=== PATIENT | female | born 1945 | race Caucasian/White ===

== ENCOUNTER 2018-03-14 00:30 | Inpatient (IN) ==
[2018-03-14 00:53] LABS: Basophils # 0.1 K/mm3 (0-0.2); Basophils % 0.9 % (0.1-2.0); Eosinophils # 0.4 K/mm3 (0.0-0.4); Eosinophils % 2.5 % (0.1-12.0); Hematocrit 53.8 % (37.0-47.0); Hemoglobin 16.4 g/dL (12.2-16.2); Lymphocytes % 40.3 % (10-50); Mean Corpuscular HGB Conc 30.4 g/dL (31.8-35.4); Mean Corpuscular Hemoglobin 28.7 pg (27.0-31.2); Mean Corpuscular Volume 94.3 fl (81-99); Mean Platelet Volume 9.2 fl (7.4-10.4); Monocytes # 0.9 K/mm3 (0.1-1.0); Neutrophils # 7.5 K/mm3 (1.8-7.8); Neutrophils % 50.4 % (37.0-80.0); Platelet Count 278 K/mm3 (142-424); Red Blood Count 5.71 M/mm3 (4.20-5.40); Red Cell Distribution Width 13.6 % (11.5-17.5)
[2018-03-14 01:16] LABS: Anion Gap 25.4 mEq/L (5-15); Blood Urea Nitrogen 23 mg/dL (7-18); Calcium 9.4 mg/dL (8.5-10.1); Carbon Dioxide 18 mmol/L (21.0-32.0); Chloride 98 mmol/L (98-107); Glucose 350 mg/dL (74-106); Potassium 4.4 mmoL/L (3.5-5.1); Sodium 137 mmol/L (136-145)
[2018-03-14 01:20] LABS: Albumin Level 3.9 gm/dL (3.4-5.0); Bilirubin,Direct 0.1 mg/dL (0.0-0.2); Bilirubin,Indirect 0.2 mg/dL (0.0-0.9); Bilirubin,Total 0.3 mg/dL (0.2-1.0); Total Protein,Serum 7.9 gm/dL (6.4-8.2)
[2018-03-14 01:42] LABS: Anisocytosis 1+; Eosinophils % 6 % (0-3); Lymphocytes % 40 % (10-50); Monocytes % 2 % (2-9); Neutrophils % 52 % (42-76); Total Cells Counted 100
--- NOTE | 2018-03-14 01:56 | Emergency Department Note ---
ED Disposition Clinical Impression: Acute dyspnea, Acute exacerbation of chronic obstructive airways disease, Renal insufficiency, Left bundle branch block (LBBB), Overweight (BMI 25.0-29.9), Elevated TSH Disposition: Admitted As Inpatient Condition on Discharge: Fair Referrals: Natalia Freeman [Primary Care Provider] - - Critical Care Critical Care Time: No Attestation: On 03/14/18, the high probability of a clinically significant, sudden or life threatening deterioration of the following system(s) required my full and direct attention, intervention and personal management. The time I documented below is in addition to time spent performing reported procedures but includes the following listed in this critical care notation. Medical Decision Making - Medical Records Medical records reviewed: Yes: I reviewed the patient's medical records. - Alfa Inquiry Pt receiving controlled substance: No Vital Signs: 03/14/18 00:34 03/14/18 00:55 03/14/18 01:18 Temperature 97.9 F Temperature Source Oral Pulse Rate 103 H Pulse Rate [Right Brachial] 112 H 94 H Respiratory Rate 21 22 Blood Pressure [Right Arm] 171/100 H 127/68 Blood Pressure Mean [Right Arm] 123 87 02 Sat by Pulse Oximetry 95 84 L Oxygen Delivery Method Room Air Room Air Oxygen Flow Rate (LPM) 03/14/18 01:30 03/14/18 02:25 Temperature 98.5 F Temperature Source Oral Pulse Rate Pulse Rate [Right Brachial] 86 98 H Respiratory Rate 19 19 Blood Pressure [Right Arm] 132/74 145/81 H Blood Pressure Mean [Right Arm] 93 102 02 Sat by Pulse Oximetry 91 L 92 L Oxygen Delivery Method Nasal Cannula Nasal Cannula Oxygen Flow Rate (LPM) 3 3 - Lab Data Lab results reviewed: Yes: I reviewed the patient's lab results. Lab Results 03/14/18 00:30: WBC 15.0 H, RBC 5.71 H, Hgb 16.4 H, Hct 53.8 H, MCV 94.3, MCH 28.7, MCHC 30.4 L, RDW 13.6, Plt Count 278, MPV 9.2, Neut % (Auto) 50.4, Lymph % (Auto) 40.3, [place] % (Auto) 6.0, Eos % (Auto) 2.5, Baso % (Auto) 0.9, Neut # (Au to) 7.5, Lymph # (Auto) 6.0 H, [place] # (Auto) 0.9, Eos # (Auto) 0.4, Baso # (Auto) 0.1, Total Counted 100, Neutrophils % (Manual) 52, Lymphocytes % (Manual) 40, Monocytes % (Manual) 2, Eosinophils % (Manual) 6 H, Platelet Estimate Normal, RBC Morphology Not Reportable, Anisocytosis 1+ 03/14/18 00:30: Sodium 137, Potassium 4.4, Chloride 98, Carbon Dioxide 18 L, Anion Gap 25.4 H, BUN 23 H, Creatinine 1.45 H, Estimated Creat Clear 47, Estimated GFR 36 L, Est GFR ( Amer) 43 L, Glucose 350 H, Calcium 9.4, Troponin I < 0.02 03/14/18 00:30: Total Bilirubin 0.3, Direct Bilirubin 0.1, Indirect Bilirubin 0.2, AST 18, ALT 29, Alkaline Phosphatase 88, Total Protein 7.9, Albumin 3.9 03/14/18 00:30: B-Natriuretic Peptide 148 H 03/14/18 00:45: Lactate 6.5 H 03/14/18 02:14: Specimen Source Left radial, O2 % 32% nc, ABG pH 7.34 L, ABG pCO2 43.6, ABG pO2 64.1 L, ABG HCO3 23.1, ABG Total CO2 24.4, ABG O2 Saturation 92, ABG Base Excess -2.6 L, Radames Test Acceptable Result diagrams: 03/14/18 00:30 03/14/18 00:30 Orders (Tests/Meds): ED MEDICATIONS Generic Name Dose Route Start Last Admin Trade Name Freq PRN Reason Stop Dose Admin Sodium Chloride 1,000 mls @ 999 mls/hr 03/14/18 00:45 03/14/18 00:57 Sod Chlor 0.9% 1000ml Bag IV 03/14/18 01:45 999 mls/hr .Q1H1M GENA Administration Sodium Chloride 10 ml 03/14/18 00:38 Saline Flush 10ml Syringe IV 04/13/18 00:37 NEEDED PRN Maintain IV Site Sodium Chloride 3 ml 03/14/18 00:39 Sodium Chloride 3% 15ml Neb IH 04/13/18 00:38 ONCE PRN INDUCE SPUTUM COLLECTION Discontinued Medications Generic Name Dose Route Start Last Admin Trade Name Freq PRN Reason Stop Dose Admin Albuterol/Ipratropium 3 ml 03/14/18 00:39 03/14/18 00:54 Duoneb 3ml Neb IH 03/14/18 00:40 3 ml ONCE ONE Administration Furosemide 40 mg 03/14/18 02:30 03/14/18 02:36 Lasix 40mg/4ml Vial IV 03/14/18 02:31 40 mg ONCE ONE Administration Methylprednisolone Sodium Succinate 125 mg 03/14/18 00:39 03/14/18 00:57 Solu-Medrol 125mg/2ml Vial IV 03/14/18 00:40 125 mg ONCE ONE Administration ORDERS Category Date Time Status XR chest portable Stat Exams 03/14/18 00:38 Taken T4 (Thyroxine) Stat Lab 03/14/18 00:30 Received TSH [Thyroid Stimulating Hormone] Stat Lab 03/14/18 00:30 Received Blood Culture Stat Micro 03/14/18 00:45 Received Sputum Culture & Gram Stain Stat Micro 03/14/18 00:39 Ordered ABG [Arterial Blood Gas] Stat RT 03/14/18 02:14 Ordered ECG Request by /Antonio Stat Y 03/14/18 00:38 Ordered - Radiology Data #1 Image(s): Chest Image Reviewed: Yes I reviewed the patient's radiology image Preliminary Findings: Abnormal (cm-congestion) - ECG Data Tracing #1 Arrhythmias present: sinus tach Ischemic changes: non-specific ST-T wave changes Conduction abnormalities present: LBBB ECG compared to prior tracings: there are no significant changes - Physician Consults Physician Consulted: padmini Reason -: Admission Resp/SOB HPI - General Chief Complaint: Shortness of Breath/Dyspnea Stated Complaint: shortness of breath Time Seen by Provider: 03/14/18 00:45 Mode of Arrival: EMS Source of Information: Patient, Medical Record Limitations: No Limitations Description of Symptoms (Recalled from ER Triage Doc. by RN): Brought in by EMS for shortness of breath after patient reportedly was outside walking and attempted to walk up a hill side. Pt reports that she got extremely short of breath and couldn't walk. - History of Present Illness pt with hx of copd with progressive sob with any excertion - no fever and no prod cough MD Complaint: shortness of breath, cough Onset (ago): hour(s) Context: occurred during exertion Severity: severe Known history of: COPD, diabetes Associated symptoms: denies other symptoms Treatment prior to arrival: none - Related Data Home oxygen amount: none Home Medications Medication Instructions Recorded Confirmed Atenolol [Atenolol 50mg Tab] 50 mg PO DAILY 09/09/17 03/14/18 Fenofibrate,Micronized [Tricor 134 mg PO DAILY 09/09/17 03/14/18 134mg] Insulin NPH Hum/Reg Insulin Hm 1 unit SQ DAILY 09/09/17 03/14/18 [Novolin 70-30 100 Unit/ml Vial] Lisinopril [Lisinopril 20mg Tab] 20 mg PO DAILY 09/09/17 03/14/18 Pantoprazole Sodium [Protonix 40mg 40 mg PO DAILY 09/09/17 03/14/18 tablet] Saxagliptin HCl [Onglyza] 5 mg PO DAILY 09/09/17 03/14/18 buPROPion HCl [Wellbutrin Xl] 300 mg PO DAILY 09/09/17 03/14/18 Allergies Allergy/AdvReac Type Severity Reaction Status Date / Time ibuprofen Allergy Unknown Verified 09/09/17 15:08 [facility] History - Hepatitis A Screen Drug use history?: No High risk sexual behaviors?: No History of sexually transmitted infection?: No Currently employed?: No Childcare worker?: No Do you have indoor plumbing?: Yes Do you have electricity?: Yes Attestation statement:: This patient has been screened for Hepatitis A risk factors. I have reviewed the patient's past medical history: Yes Medical History: Reports:: Diabetes Mellitus Type 2 Denies:: Cancer, Diabetes Mellitus Type 1, MRSA Amputation: No - Social History Smoking Status: Current every day smoker Alcohol Intake: never - Psychiatric History Expresses thoughts of harming self/others: None Suicide Plan Description: No Plan ROS Obtained: Yes All systems reviewed & no additional complaints - Constitutional Constitutional: Denies fever(s) - Eyes Eyes: Denies change in vision - ENT Ears, Nose, Mouth, and Throat: Denies sore throat - Cardiovascular Cardiovascular: Denies chest pain, Reports dyspnea, Denies radiating jaw, neck or arm pain - Respiratory Respiratory: Yes cough, Yes dyspnea, No coughing up blood - Gastrointestinal Gastrointestingal: Denies: abdominal pain - Genitourinary Female Genitourinary: Denies hematuria - Musculoskeletal Musculoskeletal: Denies joint pain, Denies neck pain - Integumentary/Breasts Skin/Breast: Denies rash - Neurologic Neurologic: Denies headache(s) Physical Exam - General General appearance: alert - Head Head exam: normocephalic - Eye Eye exam: Present: PERRL, EOMI - ENT ENT exam: Present: mucous membranes dry - Neck Neck exam: Present: trachea midline - Respiratory Respiratory exam: Present: wheezes, other (bilat rhonchi ). Absent: respiratory distress - Cardiovascular Cardiovascular exam: Present: regular rate, systolic murmur, +S4 - Abdominal Exam Abdominal exam: Present: soft - Extremities Exam Extremities exam: Present: pedal edema - Neurological Exam Neurological exam: Present: alert, oriented X3, CN II-XII intact - Psychiatric Psychiatric exam: Present: normal affect - Skin Skin exam: Absent: rash
[2018-03-14 02:26] LABS: ABG Base Excess -2.6 mmol/L (-2.4-2.3); ABG HCO3 23.1 mmhg (22.0-26.0); ABG Oxygen Saturation 92 % (90-100); ABG PCO2 43.6 mmhg (35.0-45.0); ABG PH 7.34 mmol/L (7.35-7.45); ABG PO2 64.1 mmhg (80-100); ABG TCO2 24.4 mmhg (23-27)
[2018-03-14 02:28] LABS: Allen's Test Acceptable; Oxygen 32% NC %
[2018-03-14 03:00] LABS: Thyroid Stimulating Hormone 13.69 uIU/ml (0.358-3.740)
[2018-03-14 05:24] LABS: Basophils % 0.2 % (0.1-2.0); Eosinophils % 0.4 % (0.1-12.0); Hematocrit 46.4 % (37.0-47.0); Hemoglobin 15.1 g/dL (12.2-16.2); Lymphocytes # 0.7 K/mm3 (0.7-4.5); Lymphocytes % 7.4 % (10-50); Mean Corpuscular HGB Conc 32.5 g/dL (31.8-35.4); Mean Corpuscular Hemoglobin 28.7 pg (27.0-31.2); Mean Corpuscular Volume 88.3 fl (81-99); Mean Platelet Volume 9.1 fl (7.4-10.4); Monocytes # 0.2 K/mm3 (0.1-1.0); Monocytes % 2.1 % (1.7-9.3); Neutrophils # 8.3 K/mm3 (1.8-7.8); Neutrophils % 89.8 % (37.0-80.0); Platelet Count 180 K/mm3 (142-424); Red Blood Count 5.26 M/mm3 (4.20-5.40); Red Cell Distribution Width 13.7 % (11.5-17.5); White Blood Count 9.2 K/mm3 (4.8-10.8)
[2018-03-14 05:36] LABS: Anion Gap 15.1 mEq/L (5-15); Calcium 8.9 mg/dL (8.5-10.1); Chol/HDL Ratio 4.7 (1-3.5); Potassium 4.1 mmoL/L (3.5-5.1)
--- NOTE | 2018-03-14 07:48 | Consult Report ---
Addendum entered and electronically signed by PRIYANK Harrison 03/14/18 14:30: Cardiac cath shows non-flow limiting CAD. Medical therapy recommended. Official echo report has LVEF at 55% with abnormal septal motion. SOA is likely just related to COPD and deconditioning. Continue atenolol and lisinopril. Would add low dose HCTZ 12.5 mg daily with BMP in one week. Original Note: History of Present Illness Consult date: 03/14/18 Requesting physician: Wiliam Nolen Consult reason: shortness of breath Chief complaint: SOA Additional Medical History:: 1. Ongoing tobacco use A. COPD 2. History of ischemic heart disease A. Cardiac catheterization 05/27/1997, [facility] showing normal LV function with 40% mid LAD and 70% ostial second diagonal disease 3. Diabetes mellitus, treated for approximately 15 years 4. Hypertension 5. Hyperlipidemia 6. History of CVA with left-sided facial droop and left upper extremity weakness approximately 2010, resolved with therapy and time History of present illness: 72-year-old white female with known coronary artery disease, hypertension, ongoing tobacco use and diabetes mellitus presented for complaint of exertional shortness of breath. Patient was apparently walking here in town up a slight hill when she became progressively short of breath to the point of needing to stop every 2 minutes to catch her breath. Patient denies chest pain but does note some nausea and profuse sweating. She states she needed to hold onto a pole so she would not fall. Patient has a chronic left bundle branch block precluding diagnostic interpretation. She was admitted overnight with troponins returning normal. Cardiology consulted for evaluation and recommendations. Patient is somewhat of a difficult historian regarding recent activity tolerance. Preliminary echocardiogram this a.m. shows reduced left ventricular ejection fraction in the 40-45% range with evidence of septal hypertrophy. [facility] History Medical History: Reports:: Coronary Artery Disease, Diabetes Mellitus Type 2, Hyperlipidemia, Hypertension Denies:: Cancer, Diabetes Mellitus Type 1, MRSA Have you ever received a pneumonia vaccine?: No Have you received a flu vaccine this season?: No Laterality Cases: Left: Total Knee Replacement Other Surgeries: Yes: Cardiac Catheterization Amputation: No - *Social History Educational Level: Attended High School Smoking Status: Current every day smoker Tobacco Type: cigarettes # Packs/Day (cigarettes): 1 #Yrs smoked (if former smoker): 58 Alcohol Intake: never Occupational Status: disabled Household Members: children Travel in the last 8 weeks: None - Psychiatric History Expresses thoughts of harming self/others: None Suicide Plan Description: No Plan *Family Hx:: Unable to obtain Meds Home Medications Medication Instructions Recorded Confirmed Type Atenolol [Atenolol 50mg Tab] 50 mg PO DAILY 09/09/17 03/14/18 History Fenofibrate,Micronized [Tricor 134 mg PO DAILY 09/09/17 03/14/18 History 134mg] Insulin NPH Hum/Reg Insulin Hm 1 unit SQ DAILY 09/09/17 03/14/18 History [Novolin 70-30 100 Unit/ml Vial] Lisinopril [Lisinopril 20mg Tab] 20 mg PO DAILY 09/09/17 03/14/18 History Pantoprazole Sodium [Protonix 40mg 40 mg PO DAILY 09/09/17 03/14/18 History tablet] Saxagliptin HCl [Onglyza] 5 mg PO DAILY 09/09/17 03/14/18 History buPROPion HCl [Wellbutrin Xl] 300 mg PO DAILY 09/09/17 03/14/18 History Allergies Allergy/AdvReac Type Severity Reaction Status Date / Time ibuprofen Allergy Unknown Verified 09/09/17 15:08 Review of Systems - *Cardiovascular Reports shortness of breath with activity, Denies chest pain - *Respiratory Reports shortness of breath with activity - *Gastrointestinal Denies abdominal pain, Denies loose stools - *Genitourinary Denies difficulty urinating - *Musculoskeletal Denies joint pain - *Neurologic Denies headache(s) Exam Vital signs and Labs for Last 24 Hours: Temp Pulse Resp BP Pulse Ox 98.5 F 97 H 18 174/91 H 92 L 03/14/18 03:24 03/14/18 06:33 03/14/18 03:24 03/14/18 03:24 03/14/18 06:33 Laboratory Results - last 24 hr 03/14/18 00:30: WBC 15.0 H, RBC 5.71 H, Hgb 16.4 H, Hct 53.8 H, MCV 94.3, MCH 28.7, MCHC 30.4 L, RDW 13.6, Plt Count 278, MPV 9.2, Neut % (Auto) 50.4, Lymph % (Auto) 40.3, [place] % (Auto) 6.0, Eos % (Auto) 2.5, Baso % (Auto) 0.9, Neut # (Auto) 7.5, Lymph # (Auto) 6.0 H, [place] # (Auto) 0.9, Eos # (Auto) 0.4, Baso # (Auto) 0.1, Total Counted 100, Neutrophils % (Manual) 52, Lymphocytes % (Manual) 40, Monocytes % (Manual) 2, Eosinophils % (Manual) 6 H, Platelet Estimate Normal, RBC Morphology Not Reportable, Anisocytosis 1+ 03/14/18 00:30: Sodium 137, Potassium 4.4, Chloride 98, Carbon Dioxide 18 L, Anion Gap 25.4 H, BUN 23 H, Creatinine 1.45 H, Estimated Creat Clear 47, Estimated GFR 36 L, Est GFR ( Amer) 43 L, Glucose 350 H, Calcium 9.4, Troponin I < 0.02 03/14/18 00:30: Total Bilirubin 0.3, Direct Bilirubin 0.1, Indirect Bilirubin 0.2, AST 18, ALT 29, Alkaline Phosphatase 88, Total Protein 7.9, Albumin 3.9 03/14/18 00:30: B-Natriuretic Peptide 148 H 03/14/18 00:30: TSH 13.69 H, Thyroxine (T4) 9.3 03/14/18 00:45: Lactate 6.5 H 03/14/18 02:14: Specimen Source Left radial, O2 % 32% nc, ABG pH 7.34 L, ABG pCO2 43.6, ABG pO2 64.1 L, ABG HCO3 23.1, ABG Total CO2 24.4, ABG O2 Saturation 92, ABG Base Excess -2.6 L, Radames Test Acceptable 03/14/18 05:05: WBC 9.2 D, RBC 5.26, Hgb 15.1, Hct 46.4, MCV 88.3, MCH 28.7, MCHC 32.5, RDW 13.7, Plt Count 180 D, MPV 9.1, Neut % (Auto) 89.8 H, Lymph % (Auto) 7.4 L, [place] % (Auto) 2.1, Eos % (Auto) 0.4, Baso % (Auto) 0.2, Neut # (Auto) 8.3 H, Lymph # (Auto) 0.7, [place] # (Auto) 0.2, Eos # (Auto) 0.0, Baso # (Auto) 0.0 03/14/18 05:05: Sodium 135 L, Potassium 4.1, Chloride 99, Carbon Dioxide 25 D, Anion Gap 15.1 H, BUN 24 H, Creatinine 1.33 H, Estimated Creat Clear 58, Estimated GFR 39 L, Est GFR ( Amer) 48 L, Glucose 374 H, Calcium 8.9, Magnesium 1.9, Troponin I 0.04, Triglycerides 212 H, Cholesterol 179, LDL Cholesterol 99, VLDL Cholesterol 42 H, HDL Cholesterol 38, Cholesterol/HDL Ratio 4.7 H 03/14/18 05:05: Lactate 1.4 03/14/18 06:15: POC Glucose 351 H* I & O for Last 24 hours: Intake & Output 03/11/18 03/12/18 03/13/18 03/14/18 11:59 11:59 11:59 11:59 Intake Total 1000 / 1000 Output Total 300 / 300 Balance 700 / 700 Weight 205 lb 9 oz - *Routine Neck Exam Present: supple. Absent: JVD, carotid bruit - *Routine Respiratory Exam Present: decreased breath sounds, wheezes, crackles, diminished air movement. Absent: accessory muscle use, rales, rhonchi - *Routine Cardiovascular Exam Present: RRR. Absent: murmur, gallop, rubs - *Routine Abdominal Exam Present: soft. Absent: tenderness, distended, guarding - *Routine Extremities Exam Absent: edema, calf tenderness - *Routine Neurological Exam Present: alert, oriented X3, moving all extremities Assessment and Plan (1) Acute dyspnea Current visit: Yes Status: Acute Category: Medical Code(s): R06.00 - Dyspnea, unspecified (2) CAD (coronary artery disease) Current visit: Yes Status: Acute Category: Medical Code(s): I25.10 - Atherosclerotic heart disease of [place] coronary artery without angina pectoris (3) Diabetes Current visit: Yes Status: Acute Category: Medical Code(s): E11.9 - Type 2 diabetes mellitus without complications (4) Hyperlipidemia associated with type 2 diabetes mellitus Current visit: Yes Status: Acute Category: Medical Code(s): E11.69 - Type 2 diabetes mellitus with other specified complication; E78.5 - Hyperlipidemia, unspecified (5) COPD (chronic obstructive pulmonary disease) Current visit: Yes Status: Acute Category: Medical Code(s): J44.9 - Chronic obstructive pulmonary disease, unspecified (6) Obesity (BMI 30.0-34.9) Current visit: Yes Status: Acute Category: Medical Code(s): E66.9 - Obesity, unspecified (7) History of CVA (cerebrovascular accident) Current visit: Yes Status: Acute Category: Medical Code(s): Z86.73 - Personal history of transient ischemic attack (TIA), and cerebral infarction without residual deficits (8) Left bundle branch block (LBBB) Current visit: Yes Status: Acute Category: Medical Code(s): I44.7 - Left bundle-branch block, unspecified (9) Hypertension Current visit: No Status: Acute Category: Medical Code(s): I10 - Essential (primary) hypertension (10) Elevated TSH Current visit: Yes Status: Acute Category: Medical Code(s): R79.89 - Other specified abnormal findings of blood chemistry (11) CKD (chronic kidney disease) stage 3, GFR 30-59 ml/min Current visit: Yes Status: Acute Category: Medical Code(s): N18.3 - Chronic kidney disease, stage 3 (moderate) - Assessment and plan all Dx Assessment and Plan for all problems:: 1. In light of the patient's exertional dyspnea with known coronary artery disease, chronic tobacco use, long standing diabetes and abnormal EKG with left bundle branch block would recommend proceeding with cardiac catheterization to evaluate for coronary artery disease. Patient would not be able to undergo stress testing due to poor exercise tolerance and wheezing on exam. In addition the patient's echocardiogram shows reduced ejection fraction. 2. Further recommendations to follow pending above results. 3. Monitor renal status closely after contrast
--- NOTE | 2018-03-14 08:40 | History & Physical Report ---
*Admission Date: 03/14/18 <Irene Hussein 03/14/18 08:46> *Chief complaint: Shortness of breath <Irene Hussein 03/14/18 08:46> *History of present illness: Ms. Ray is a 72-year-old white female with known coronary artery disease, hypertension, ongoing tobacco use and diabetes mellitus who presented to the ER with the complaint of exertional shortness of breath. Patient was apparently walking here in town up a slight hill when she became progressively short of breath to the point of needing to stop every 2 minutes to catch her breath. Patient denies chest pain but does note some nausea and profuse sweating. She states she needed to hold onto a pole so she would not fall. Her daughter then called 911. She was admitted overnight for cardiac monitoring with troponins returning normal. Cardiology was consulted for evaluation and recommendations. <Irene Hussein 03/14/18 08:46> [facility] History Medical History: Reports:: Chronic Obstructive Pulmonary Disease (COPD), Coronary Artery Disease, Cerebrovascular Accident, Diabetes Mellitus Type 2, Hyperlipidemia, Hypertension Denies:: Cancer, Diabetes Mellitus Type 1, MRSA <Irene Hussein 03/14/18 08:46> Have you ever received a pneumonia vaccine?: No <Irene Hussein 03/14/18 08:46> Have you received a flu vaccine this season?: No <Irene Hussein 03/14/18 08:46> Other Medical History: Reports: Arthritis <Irene Hussein 03/14/18 08:46> Laterality Cases: Left: Total Knee Replacement <Irene Hussein 03/14/18 08:46> Other Surgeries: Yes: Cardiac Catheterization, Cholecystectomy, Other (C- section, tumors removed from stomach) <Irene Hussein 03/14/18 08:46> Amputation: No <Irene Hussein 03/14/18 08:46> - *Social History Educational Level: Attended High School <Irene Hussein 03/14/18 08:46> Smoking Status: Current every day smoker <Irene Hussein 03/14/18 08:46> Tobacco Type: cigarettes <Irene Hussein 03/14/18 08:46> # Packs/Day (cigarettes): 1 <Irene Hussein 03/14/18 08:46> #Yrs smoked (if former smoker): 58 <JovitaIrene 03/14/18 08:46> Alcohol Intake: never <JovitaIrene 03/14/18 08:46> Occupational Status: disabled <Irene Hussein 03/14/18 08:46> Household Members: children <JovitaIrene 03/14/18 08:46> Travel in the last 8 weeks: None <Irene Hussein 03/14/18 08:46> - Psychiatric History Expresses thoughts of harming self/others: None <JovitaIrene 03/14/18 08:46> Suicide Plan Description: No Plan <Irene Hussein 03/14/18 08:46> *Family Hx:: Cancer, Hyperlipidemia, Hypertension <JovitaIrene 03/14/18 08:46> Review of Systems - Constitutional Reports chills, Reports weakness, Denies fever(s) <Irene Hussein 03/14/18 08:46> - Eyes Denies blurry vision, Denies double vision <JovitaIrene 03/14/18 08:46> - ENT Reports nasal congestion, Denies sore throat <JovitaIrene 03/14/18 08:46> - *Cardiovascular Reports excessive sweating, Reports shortness of breath with activity, Denies chest pain, Denies rapid, pounding, or irregular heartbeat <JovitaIrene 03/14/18 08:46> - *Respiratory Reports cough, Reports shortness of breath with activity <Juni Husseina 03/14/18 08:46> - *Gastrointestinal Reports loose stools, Reports nausea, Denies abdominal pain, Denies vomiting <JovitaIrene 03/14/18 08:46> - *Genitourinary Denies difficulty urinating, Denies painful urination <Irene Hussein 03/14/18 08:46> - *Musculoskeletal Reports back pain, Denies body aches <Irene Hussein 03/14/18 08:46> - *Neurologic Reports weakness, Denies headache(s), Denies dizziness <Irene Hussein 03/14/18 08:46> Meds Home Medications Medication Instructions Recorded Confirmed Type Atenolol [Atenolol 50mg Tab] 50 mg PO DAILY 09/09/17 03/14/18 History Fenofibrate,Micronized [Tricor 134 mg PO DAILY 09/09/17 03/14/18 History 134mg] Insulin NPH Hum/Reg Insulin Hm 1 unit SQ DAILY 09/09/17 03/14/18 History [Novolin 70-30 100 Unit/ml Vial] Lisinopril [Lisinopril 20mg Tab] 20 mg PO DAILY 09/09/17 03/14/18 History Pantoprazole Sodium [Protonix 40mg 40 mg PO DAILY 09/09/17 03/14/18 History tablet] Saxagliptin HCl [Onglyza] 5 mg PO DAILY 09/09/17 03/14/18 History buPROPion HCl [Wellbutrin Xl] 300 mg PO DAILY 09/09/17 03/14/18 History <Wiliam Nolen - 03/14/18 08:59> Allergies Allergy/AdvReac Type Severity Reaction Status Date / Time ibuprofen Allergy Unknown Verified 09/09/17 15:08 <Wiliam Nolen - 03/14/18 08:59> Exam Vital signs and Labs for Last 24 Hours: Temp Pulse Resp BP Pulse Ox 98.5 F 97 H 18 174/91 H 92 L 03/14/18 03:24 03/14/18 06:33 03/14/18 03:24 03/14/18 03:24 03/14/18 06:33 Laboratory Results - last 24 hr 03/14/18 00:30: WBC 15.0 H, RBC 5.71 H, Hgb 16.4 H, Hct 53.8 H, MCV 94.3, MCH 28.7, MCHC 30.4 L, RDW 13.6, Plt Count 278, MPV 9.2, Neut % (Auto) 50.4, Lymph % (Auto) 40.3, [place] % (Auto) 6.0, Eos % (Auto) 2.5, Baso % (Auto) 0.9, Neut # (Auto) 7.5, Lymph # (Auto) 6.0 H, [place] # (Auto) 0.9, Eos # (Auto) 0.4, Baso # (Auto) 0.1, Total Counted 100, Neutrophils % (Manual) 52, Lymphocytes % (Manual) 40, Monocytes % (Manual) 2, Eosinophils % (Manual) 6 H, Platelet Estimate Normal, RBC Morphology Not Reportable, Anisocytosis 1+ 03/14/18 00:30: Sodium 137, Potassium 4.4, Chloride 98, Carbon Dioxide 18 L, Anion Gap 25.4 H, BUN 23 H, Creatinine 1.45 H, Estimated Creat Clear 47, Estimated GFR 36 L, Est GFR ( Amer) 43 L, Glucose 350 H, Calcium 9.4, Troponin I < 0.02 03/14/18 00:30: Total Bilirubin 0.3, Direct Bilirubin 0.1, Indirect Bilirubin 0.2, AST 18, ALT 29, Alkaline Phosphatase 88, Total Protein 7.9, Albumin 3.9 03/14/18 00:30: B-Natriuretic Peptide 148 H 03/14/18 00:30: TSH 13.69 H, Thyroxine (T4) 9.3 03/14/18 00:45: Lactate 6.5 H 03/14/18 02:14: Specimen Source Left radial, O2 % 32% nc, ABG pH 7.34 L, ABG pCO2 43.6, ABG pO2 64.1 L, ABG HCO3 23.1, ABG Total CO2 24.4, ABG O2 Saturation 92, ABG Base Excess -2.6 L, Radames Test Acceptable 03/14/18 05:05: WBC 9.2 D, RBC 5.26, Hgb 15.1, Hct 46.4, MCV 88.3, MCH 28.7, MCHC 32.5, RDW 13.7, Plt Count 180 D, MPV 9.1, Neut % (Auto) 89.8 H, Lymph % (Auto) 7.4 L, [place] % (Auto) 2.1, Eos % (Auto) 0.4, Baso % (Auto) 0.2, Neut # (A uto) 8.3 H, Lymph # (Auto) 0.7, [place] # (Auto) 0.2, Eos # (Auto) 0.0, Baso # (Auto) 0.0 03/14/18 05:05: Sodium 135 L, Potassium 4.1, Chloride 99, Carbon Dioxide 25 D, Anion Gap 15.1 H, BUN 24 H, Creatinine 1.33 H, Estimated Creat Clear 58, Estimated GFR 39 L, Est GFR ( Amer) 48 L, Glucose 374 H, Calcium 8.9, Magnesium 1.9, Troponin I 0.04, Triglycerides 212 H, Cholesterol 179, LDL Cholesterol 99, VLDL Cholesterol 42 H, HDL Cholesterol 38, Cholesterol/HDL Ratio 4.7 H 03/14/18 05:05: Lactate 1.4 03/14/18 06:15: POC Glucose 351 H* <Wiliam Nolen - 03/14/18 08:59> Temp Pulse Resp BP Pulse Ox 98.5 F 97 H 18 174/91 H 92 L 03/14/18 03:24 03/14/18 06:33 03/14/18 03:24 03/14/18 03:24 03/14/18 06:33 Laboratory Results - last 24 hr 03/14/18 00:30: WBC 15.0 H, RBC 5.71 H, Hgb 16.4 H, Hct 53.8 H, MCV 94.3, MCH 28.7, MCHC 30.4 L, RDW 13.6, Plt Count 278, MPV 9.2, Neut % (Auto) 50.4, Lymph % (Auto) 40.3, [place] % (Auto) 6.0, Eos % (Auto) 2.5, Baso % (Auto) 0.9, Neut # (Auto) 7.5, Lymph # (Auto) 6.0 H, [place] # (Auto) 0.9, Eos # (Auto) 0.4, Baso # (Auto) 0.1, Total Counted 100, Neutrophils % (Manual) 52, Lymphocytes % (Manual) 40, Monocytes % (Manual) 2, Eosinophils % (Manual) 6 H, Platelet Estimate Normal, RBC Morphology Not Reportable, Anisocytosis 1+ 03/14/18 00:30: Sodium 137, Potassium 4.4, Chloride 98, Carbon Dioxide 18 L, Anion Gap 25.4 H, BUN 23 H, Creatinine 1.45 H, Estimated Creat Clear 47, Estimated GFR 36 L, Est GFR ( Amer) 43 L, Glucose 350 H, Calcium 9.4, Troponin I < 0.02 03/14/18 00:30: Total Bilirubin 0.3, Direct Bilirubin 0.1, Indirect Bilirubin 0.2, AST 18, ALT 29, Alkaline Phosphatase 88, Total Protein 7.9, Albumin 3.9 03/14/18 00:30: B-Natriuretic Peptide 148 H 03/14/18 00:30: TSH 13.69 H, Thyroxine (T4) 9.3 03/14/18 00:45: Lactate 6.5 H 03/14/18 02:14: Specimen Source Left radial, O2 % 32% nc, ABG pH 7.34 L, ABG pCO2 43.6, ABG pO2 64.1 L, ABG HCO3 23.1, ABG Total CO2 24.4, ABG O2 Saturation 92, ABG Base Excess -2.6 L, Radames Test Acceptable 03/14/18 05:05: WBC 9.2 D, RBC 5.26, Hgb 15.1, Hct 46.4, MCV 88.3, MCH 28.7, MCHC 32.5, RDW 13.7, Plt Count 180 D, MPV 9.1, Neut % (Auto) 89.8 H, Lymph % (Auto) 7.4 L, [place] % (Auto) 2.1, Eos % (Auto) 0.4, Baso % (Auto) 0.2, Neut # (Auto) 8.3 H, Lymph # (Auto) 0.7, [place] # (Auto) 0.2, Eos # (Auto) 0.0, Baso # (Auto) 0.0 03/14/18 05:05: Sodium 135 L, Potassium 4.1, Chloride 99, Carbon Dioxide 25 D, Anion Gap 15.1 H, BUN 24 H, Creatinine 1.33 H, Estimated Creat Clear 58, Estimated GFR 39 L, Est GFR ( Amer) 48 L, Glucose 374 H, Calcium 8.9, Magnesium 1.9, Troponin I 0.04, Triglycerides 212 H, Cholesterol 179, LDL Cholesterol 99, VLDL Cholesterol 42 H, HDL Cholesterol 38, Cholesterol/HDL Ratio 4.7 H 03/14/18 05:05: Lactate 1.4 03/14/18 06:15: POC Glucose 351 H* <Irene Hussein - 03/14/18 08:46> I & O for Last 24 hours: Intake & Output 03/11/18 03/12/18 03/13/18 03/14/18 11:59 11:59 11:59 11:59 Intake Total 1000 / 1000 Output Total 300 / 300 Balance 700 / 700 Weight 205 lb 9 oz <Wiliam Nolen - 03/14/18 08:59> Intake & Output 03/11/18 03/12/18 03/13/18 03/14/18 11:59 11:59 11:59 11:59 Intake Total 1000 / 1000 Output Total 300 / 300 Balance 700 / 700 Weight 205 lb 9 oz <Irene Hussein 03/14/18 08:46> - Constitutional no acute distress <Irene Hussein 03/14/18 08:46> - *Routine HEENT Exam Head: Present: normocephalic <Irene Hussein 03/14/18 08:46> Eye: Present: EOMI, PERRL <Irene Hussein 03/14/18 08:46> ENT: Present: mucous membranes dry <Irene Hussein 03/14/18 08:46> - *Routine Neck Exam Present: supple. Absent: lymphadenopathy <Irene Hussein 03/14/18 08:46> - *Routine Respiratory Exam Present: decreased breath sounds, wheezes (faint throughout). Absent: rales <Irene Hussein 03/14/18 08:46> - *Routine Cardiovascular Exam Present: RRR <Irene Hussein 03/14/18 08:46> - *Routine Abdominal Exam Present: soft, normoactive bowel sounds. Absent: tenderness <Irene Hussein 03/14/18 08:46> - *Routine Extremities Exam Absent: cyanosis, clubbing, edema <Irene Hussein 03/14/18 08:46> - *Routine Skin Exam Present: warm. Absent: rash <Irene Hussein 03/14/18 08:46> - *Routine Neurological Exam Present: alert, oriented X3 <Irene Hussein 03/14/18 08:46> H&P: Result - Impressions CXR - Mild accentuation of markings in the right base mainly reflects chronic changes-but difficult to exclude additional minimal patchy infiltrate here currently . <Irene Hussein 03/14/18 08:46> Assessment and Plan (1) Acute dyspnea Current visit: Yes Status: Acute Category: Medical Code(s): R06.00 - Dy spnea, unspecified (2) CAD (coronary artery disease) Current visit: Yes Status: Acute Category: Medical Code(s): I25.10 - Atherosclerotic heart disease of [place] coronary artery without angina pectoris (3) Diabetes Current visit: Yes Status: Acute Category: Medical Code(s): E11.9 - Type 2 diabetes mellitus without complications (4) Hyperlipidemia associated with type 2 diabetes mellitus Current visit: Yes Status: Acute Category: Medical Code(s): E11.69 - Type 2 diabetes mellitus with other specified complication; E78.5 - Hyperlipidemia, unspecified (5) COPD (chronic obstructive pulmonary disease) Current visit: Yes Status: Acute Category: Medical Code(s): J44.9 - Chronic obstructive pulmonary disease, unspecified (6) Obesity (BMI 30.0-34.9) Current visit: Yes Status: Acute Category: Medical Code(s): E66.9 - Obesity, unspecified (7) History of CVA (cerebrovascular accident) Current visit: Yes Status: Acute Category: Medical Code(s): Z86.73 - Personal history of transient ischemic attack (TIA), and cerebral infarction without residual deficits (8) Left bundle branch block (LBBB) Current visit: Yes Status: Acute Category: Medical Code(s): I44.7 - Left bundle-branch block, unspecified (9) Hypertension Current visit: No Status: Acute Category: Medical Code(s): I10 - Essential (primary) hypertension (10) Elevated TSH Current visit: Yes Status: Acute Category: Medical Code(s): R79.89 - Other specified abnormal findings of blood chemistry (11) CKD (chronic kidney disease) stage 3, GFR 30-59 ml/min Current visit: Yes Status: Acute Category: Medical Code(s): N18.3 - Chronic kidney disease, stage 3 (moderate) (12) Community acquired pneumonia Current visit: Yes Status: Acute Category: Medical Code(s): J18.9 - Pneumonia, unspecified organism <Wiliam Nolen - 03/14/18 08:59> (1) Acute dyspnea Current visit: Yes Status: Acute Category: Medical Code(s): R06.00 - Dyspnea, unspecified (2) CAD (coronary artery disease) Current visit: Yes Status: Acute Category: Medical Code(s): I25.10 - Atherosclerotic heart disease of [place] coronary artery without angina pectoris (3) Diabetes Current visit: Yes Status: Acute Category: Medical Code(s): E11.9 - Type 2 diabetes mellitus without complications (4) Hyperlipidemia associated with type 2 diabetes mellitus Current visit: Yes Status: Acute Category: Medical Code(s): E11.69 - Type 2 diabetes mellitus with other specified complication; E78.5 - Hyperlipidemia, unspecified (5) COPD (chronic obstructive pulmonary disease) Current visit: Yes Status: Acute Category: Medical Code(s): J44.9 - Chronic obstructive pulmonary disease, unspecified (6) Obesity (BMI 30.0-34.9) Current visit: Yes Status: Acute Category: Medical Code(s): E66.9 - Obesity, unspecified (7) History of CVA (cerebrovascular accident) Current visit: Yes Status: Acute Category: Medical Code(s): Z86.73 - Personal history of transient ischemic attack (TIA), and cerebral infarction without residual deficits (8) Left bundle branch block (LBBB) Current visit: Yes Status: Acute Category: Medical Code(s): I44.7 - Left bundle-branch block, unspecified (9) Hypertension Current visit: No Status: Acute Category: Medical Code(s): I10 - Essential (primary) hypertension (10) Elevated TSH Current visit: Yes Status: Acute Category: Medical Code(s): R79.89 - Other specified abnormal findings of blood chemistry (11) CKD (chronic kidney disease) stage 3, GFR 30-59 ml/min Current visit: Yes Status: Acute Category: Medical Code(s): N18.3 - Chr onic kidney disease, stage 3 (moderate) (12) Community acquired pneumonia Current visit: Yes Status: Acute Category: Medical Code(s): J18.9 - Pneumonia, unspecified organism <Irene Hussein - 03/14/18 08:37> - Assessment and plan all Dx Assessment and Plan for all problems:: Saw patient, agree with above note. <Wiliam Nolen - 03/14/18 08:59> According to cardiology her preliminary echocardiogram this a.m. shows reduced left ventricular ejection fraction in the 40-45% range with evidence of septal hypertrophy. They would like to proceed with a heart cath. CXR reveals a pneumonia. WBC was elevated on admission. Will start on abx. <Irene Hussein - 03/14/18 08:46>
--- NOTE | 2018-03-14 09:48 | Pharmacy Consult Notes ---
[facility] Pharmacy VTE Monitoring - Patient Demographics Admission date: 03/14/18 Report Date: 03/14/18 Time: 09:48 Allergies/Adverse Reactions: Patient Allergies ibuprofen Allergy (Unknown, Verified 09/09/17 15:08) Height: 1.7 m Weight: 93.242 kg Patient Problems: Current Active Problems Acute dyspnea (Acute) Acute exacerbation of chronic obstructive airways disease (Acute) Renal insufficiency (Acute) Left bundle branch block (LBBB) (Acute) Overweight (BMI 25.0-29.9) (Acute) Elevated TSH (Acute) CAD (coronary artery disease) (Acute) Diabetes (Acute) Hyperlipidemia associated with type 2 diabetes mellitus (Acute) COPD (chronic obstructive pulmonary disease) (Acute) Obesity (BMI 30.0-34.9) (Acute) History of CVA (cerebrovascular accident) (Acute) CKD (chronic kidney disease) stage 3, GFR 30-59 ml/min (Acute) Community acquired pneumonia (Acute) - VTE Risk Labs: VTE Related Lab Results Hgb 15.1 g/dL (12.2-16.2) 03/14/18 05:05 Hct 46.4 % (37.0-47.0) 03/14/18 05:05 Plt Count 180 K/mm3 (142-424) D 03/14/18 05:05 BUN 24 mg/dL (7-18) H 03/14/18 05:05 Creatinine 1.33 mg/dL (0.55-1.02) H 03/14/18 05:05 Estimated Creat Clear 58 mL/min (50-200) 03/14/18 05:05 Was VTE Risk Assessment Performed: Yes VTE Score: 6 VTE Risk Level: Moderate Risk Clinical Trial Participant: No - Prophylaxis VTE Prophylaxis Ordered?: Yes Types of VTE Prophylaxis: TEDS Knee High
--- NOTE | 2018-03-14 11:38 | Cardiology Report ---
PROCEDURE: 2-D M-mode and color Doppler study INDICATIONS FOR THE TEST: Chest pain COPDX Heart Murmur Tobacco Smoking Palpitations Fatigue Syncope Edema Hypertension Diabetes MellitusX Rheumatic Fever SOBXDOEXObesityXHyperlipidemia Family History HD Additional History LBBB CHF, TLS TDS SECONDARY COPD PATIENT INFORMATION HEIGHT: 69 WEIGHT:180 GENDER: Female B/P:127/68 2-D/M-MODE INTERPRETATION: 2-D MEASUREMENTS OBSERVED VALUES IN CMS Right Ventricular Dimension (RVDd) 2.6 Interventricular Septum (Thickness)(IVsd) 1.6 Left Ventricular Internal Dimensions(LVIDd) 4.7 Left Ventricular Posterior Wall (Thickness)(LVPWd) 1.6 Aortic Root Aortic Cusp Separation Left Atrial Dimensions (LAD) 2D 1. Technically difficult study because of the patient's factor and poor acoustic windows 2. The left atrium is mildly enlarged, left ventricle is normal size, there is mild concentric left ventricular hypertrophy, there is abnormal septal motion, visually estimated ejection fraction 55% with no regional wall motion abnormality. 3. The right atrium and right ventricle are normal size and contractility. 4. The aortic valve is thickened and calcified leaflet continue to display mobility. 5. The mitral valve has mitral calcification. 6. The tricuspid valve is grossly normal. 7. The pulmonic valve is poorly visualized. 8. No significant pericardial effusion noted. DOPPLER INTERROGATION: Doppler interrogation of the aortic, mitral and tricuspid valvular presence of mild mitral and tricuspid regurgitation, tricuspid regurgitation jet velocity is inadequate for calculation of the right ventricular systolic pressure, grade 1 diastolic dysfunction seen with tissue Doppler evidence of raised left atrial pressure. CONCLUSION: 1. Technically difficult study because of the patient's factor and poor acoustic windows 2. The left atrium is mildly enlarged, left ventricle is normal size, there is mild concentric left ventricular hypertrophy, there is abnormal septal motion, visually estimated ejection fraction 55% with no regional wall motion abnormality. Grade 1 diastolic dysfunction seen with tissue Doppler evidence of raised left atrial pressure. 3. Mild mitral and tricuspid regurgitation 4. No significant pericardial effusion noted
--- NOTE | 2018-03-15 07:43 | Progress Note ---
Internal Medicine - PN: Subj *Date: 03/15/18 *Time: 07:40 Interval history: Patient with no new complaints, feels a little better today. Exam Vital signs and Labs for Last 24 Hours: Temp Pulse Resp BP Pulse Ox 97.5 F L 69 20 143/63 H 86 L 03/15/18 04:00 03/15/18 07:35 03/15/18 04:00 03/15/18 04:00 03/15/18 07:35 Laboratory Results - last 24 hr 03/14/18 09:50: Troponin I 0.04 03/14/18 13:01: Activated Clotting Time 314 H* 03/14/18 16:25: POC Glucose 230 H 03/14/18 21:08: POC Glucose 183 H 03/15/18 06:34: POC Glucose 218 H Vital Signs Temp Pulse Pulse Pulse Resp BP BP 03/15/18 07:35 69 03/15/18 04:00 97.5 F L 60 67 20 143/63 H 03/15/18 01:00 89 03/15/18 00:00 98.4 F 90 22 129/54 L 03/14/18 21:10 77 17 03/14/18 21:01 69 03/14/18 20:45 97.8 F 77 17 132/57 L 03/14/18 20:00 70 03/14/18 19:45 97.9 F 69 18 147/82 H 03/14/18 18:45 67 18 131/61 03/14/18 17:45 97.7 F 75 20 170/75 H 03/14/18 16:45 73 20 132/69 03/14/18 16:15 71 18 128/67 03/14/18 16:00 70 03/14/18 15:45 76 20 134/64 03/14/18 15:15 73 16 127/75 03/14/18 14:45 98.2 F 74 20 138/65 03/14/18 14:30 69 18 143/68 H 03/14/18 14:15 70 20 136/86 03/14/18 14:00 72 18 130/86 03/14/18 13:45 97.7 F 71 18 136/66 03/14/18 13:30 72 18 141/65 H 03/14/18 13:25 73 18 166/65 H 03/14/18 13:20 73 18 140/71 03/14/18 13:16 74 74 18 136/67 03/14/18 13:15 74 18 136/67 03/14/18 12:10 98.0 F 82 22 149/88 H 03/14/18 08:00 98.1 F 98 H 20 143/62 H Pulse Ox 03/15/18 07:35 86 L 03/15/18 04:00 100 03/15/18 01:00 03/15/18 00:00 97 03/14/18 21:10 99 03/14/18 21:01 98 03/14/18 20:45 99 03/14/18 20:00 03/14/18 19:45 96 03/14/18 18:45 93 L 03/14/18 17:45 03/14/18 16:45 03/14/18 16:15 03/14/18 16:00 03/14/18 15:45 03/14/18 15:15 03/14/18 14:45 98 03/14/18 14:30 98 03/14/18 14:15 94 L 03/14/18 14:00 93 L 03/14/18 13:45 90 L 03/14/18 13:30 98 03/14/18 13:25 96 03/14/18 13:20 91 L 03/14/18 13:16 89 L 03/14/18 13:15 89 L 03/14/18 12:10 94 L 03/14/18 08:00 92 L Intake and Output 03/14/18 03/15/18 03/15/18 19:59 03:59 11:59 Intake Total 1832 / 1832 250 / 250 491 / 491 Balance 1832 / 1832 250 / 250 491 / 491 Intake: Intake, Oral Amount 960 / 960 240 / 240 Intake, Other Amount 10 / 10 Intake, Total IV Amount 872 / 872 491 / 491 0.9 % Sodium Chloride 1,000 ml 572 / 572 491 / 491 @ 50 mls/hr IV .Q20H [facility] Rx#: [id number] Azithromycin 500 mg In 0.9 % 250 / 250 Sodium Chloride 250 ml @ 250 mls/hr IV Q24H [facility] Rx#:[id number] Ceftriaxone Sodium 1 gm In 0.9 50 / 50 % Sodium Chloride 50 ml @ 100 mls/hr IV Q24H [facility] Rx#:[id number] Other: Intake, Other Source Saline Solution Weight 205 lb 9.015 oz 212 lb 3 oz Patient Weight 03/15/18 11:59 Weight 212 lb 3 oz I & O for Last 24 hours: Intake & Output 03/12/18 03/13/18 03/14/18 03/15/18 11:59 11:59 11:59 11:59 Intake Total 1480 / 1480 2573 / 2573 Output Total 300 / 300 Balance 1180 / 1180 2573 / 2573 Weight 205 lb 9 oz 212 lb 3 oz - Constitutional no acute distress (eating breakfast) - *Routine HEENT Exam Head: Present: normocephalic Eye: Present: EOMI ENT: Present: mucous membranes moist Assessment and Plan (1) Acute dyspnea Current visit: Yes Status: Acute Category: Medical Code(s): R06.00 - Dyspnea, unspecified (2) CAD (coronary artery disease) Current visit: Yes Status: Acute Category: Medical Code(s): I25.10 - Atherosclerotic heart disease of [place] coronary artery without angina pectoris (3) Diabetes Current visit: Yes Status: Acute Category: Medical Code(s): E11.9 - Type 2 diabetes mellitus without complications (4) Hyperlipidemia associated with type 2 diabetes mellitus Current visit: Yes Status: Acute Category: Medical Code(s): E11.69 - Type 2 diabetes mellitus with other specified complication; E78.5 - Hyperlipidemia, unspecified (5) COPD (chronic obstructive pulmonary disease) Current visit: Yes Status: Acute Category: Medical Code(s): J44.9 - Chronic obstructive pulmonary disease, unspecified (6) Obesity (BMI 30.0-34.9) Current visit: Yes Status: Acute Category: Medical Code(s): E66.9 - Obesity, unspecified (7) History of CVA (cerebrovascular accident) Current visit: Yes Status: Acute Category: Medical Code(s): Z86.73 - Personal history of transient ischemic attack (TIA), and cerebral infarction without residual deficits (8) Left bundle branch block (LBBB) Current visit: Yes Status: Acute Category: Medical Code(s): I44.7 - Left bundle-branch block, unspecified (9) Hypertension Current visit: No Status: Acute Category: Medical Code(s): I10 - Essential (primary) hypertension (10) Elevated TSH Current visit: Yes Status: Acute Category: Medical Code(s): R79.89 - Other specified abnormal findings of blood chemistry (11) CKD (chronic kidney disease) stage 3, GFR 30-59 ml/min Current visit: Yes Status: Acute Category: Medical Code(s): N18.3 - Chronic kidney disease, stage 3 (moderate) (12) Community acquired pneumonia Current visit: Yes Status: Acute Category: Medical Code(s): J18.9 - Pneumonia, unspecified organism - Assessment and plan all Dx Assessment and Plan for all problems:: Patient is slowly improving. Plan another dose of IV Lasix today and will attempt to wean supplemental O2 off.
[2018-03-16 05:51] LABS: Basophils # 0.1 K/mm3 (0-0.2); Basophils % 0.7 % (0.1-2.0); Eosinophils # 0.2 K/mm3 (0.0-0.4); Eosinophils % 2.6 % (0.1-12.0); Hemoglobin 12.9 g/dL (12.2-16.2); Lymphocytes # 2.4 K/mm3 (0.7-4.5); Mean Corpuscular HGB Conc 32.3 g/dL (31.8-35.4); Mean Corpuscular Hemoglobin 28.7 pg (27.0-31.2); Mean Corpuscular Volume 88.8 fl (81-99); Mean Platelet Volume 8.5 fl (7.4-10.4); Monocytes # 0.5 K/mm3 (0.1-1.0); Monocytes % 6.4 % (1.7-9.3); Neutrophils # 4.3 K/mm3 (1.8-7.8); Neutrophils % 58.4 % (37.0-80.0); Platelet Count 153 K/mm3 (142-424); Red Blood Count 4.51 M/mm3 (4.20-5.40); Red Cell Distribution Width 13.8 % (11.5-17.5); White Blood Count 7.4 K/mm3 (4.8-10.8)
[2018-03-16 06:12] LABS: Anion Gap 10.2 mEq/L (5-15); Calcium 9.1 mg/dL (8.5-10.1); Potassium 4.2 mmoL/L (3.5-5.1)
--- NOTE | 2018-03-16 07:37 | Progress Note ---
Internal Medicine - PN: Subj *Date: 03/16/18 *Time: 07:34 Interval history: Patient has improved, she was weaned off of supplemental oxygen yesterday. She had numerous voids after receiving IV Lasix. She wants to go home. Exam Vital signs and Labs for Last 24 Hours: Temp Pulse Resp BP Pulse Ox 97.3 F L 72 20 118/61 93 L 03/16/18 04:00 03/16/18 04:00 03/16/18 04:00 03/16/18 04:00 03/16/18 04:00 Laboratory Results - last 24 hr 03/15/18 11:10: POC Glucose 220 H 03/15/18 16:09: POC Glucose 192 H 03/15/18 21:33: POC Glucose 255 H 03/16/18 05:40: WBC 7.4, RBC 4.51, Hgb 12.9, Hct 40.0, MCV 88.8, MCH 28.7, MCHC 32.3, RDW 13.8, Plt Count 153, MPV 8.5, Neut % (Auto) 58.4, Lymph % (Auto) 32.0, [place] % (Auto) 6.4, Eos % (Auto) 2.6, Baso % (Auto) 0.7, Neut # (Auto) 4.3, Lymph # (Auto) 2.4, [place] # (Auto) 0.5, Eos # (Auto) 0.2, Baso # (Auto) 0.1 03/16/18 05:40: Sodium 140, Potassium 4.2, Chloride 102, Carbon Dioxide 32 D, Anion Gap 10.2, BUN 33 H D, Creatinine 1.40 H, Estimated Creat Clear 57, Estimated GFR 37 L, Est GFR ( Amer) 45 L, Glucose 209 H, Calcium 9.1 03/16/18 06:35: POC Glucose 208 H Vital Signs Temp Pulse Pulse Resp BP Pulse Ox 03/16/18 04:00 97.3 F L 80 72 20 118/61 93 L 03/16/18 00:00 97.7 F 70 79 20 148/70 H 87 L 03/15/18 21:49 83 03/15/18 21:48 83 03/15/18 21:05 71 20 91 L 03/15/18 20:00 98.0 F 70 71 20 140/53 L 91 L 03/15/18 19:05 139/60 91 L 03/15/18 18:35 88 L 03/15/18 16:00 70 03/15/18 15:14 98.3 F 70 20 160/66 H 95 03/15/18 12:00 70 03/15/18 11:22 97.9 F 75 17 139/71 94 L 03/15/18 08:00 98.3 F 80 83 20 157/83 H 93 L Intake and Output 03/15/18 03/16/18 03/16/18 19:59 03:59 11:59 Intake Total 1237 / 1237 Output Total 400 / 400 Balance 837 / 837 Intake: Intake, Oral Amount 720 / 720 Intake, Total IV Amount 267 / 267 0.9 % Sodium Chloride 1,000 ml 267 / 267 @ 50 mls/hr IV .Q20H [facility] Rx#: [id number] Infusion Intake 250 / 250 Ceftriaxone Sodium 1 gm In 0.9 250 / 250 % Sodium Chloride 50 ml @ 100 mls/hr IV Q24H [facility] Rx#:[id number] Output: Output, Urine Amount 400 / 400 Other: Intake, Other Source Saline Solution Number of Voids 1 Number of Unmeasured Voids 1 Weight 208 lb 7 oz Patient Weight 03/16/18 11:59 Weight 208 lb 7 oz I & O for Last 24 hours: Intake & Output 03/13/18 03/14/18 03/15/18 03/16/18 11:59 11:59 11:59 11:59 Intake Total 1480 / 1480 2933 / 2933 1237 / 1237 Output Total 300 / 300 400 / 400 Balance 1180 / 1180 2933 / 2933 837 / 837 Weight 205 lb 9 oz 212 lb 3 oz 208 lb 7 oz Microbiology Reports for the Last 24 Hours: Microbiology 03/14/18 00:45 Blood Blood Culture - Preliminary NO GROWTH AFTER 48 HOURS 03/14/18 00:45 Blood Blood Culture - Preliminary NO GROWTH AFTER 48 HOURS - Constitutional no acute distress - *Routine HEENT Exam Head: Present: normocephalic Eye: Present: EOMI ENT: Present: mucous membranes moist - *Routine Neck Exam Present: supple. Absent: lymphadenopathy - *Routine Respiratory Exam Present: crackles Comments: few in right base, good air movement overall - *Routine Cardiovascular Exam Present: RRR - *Routine Abdominal Exam Present: soft, normoactive bowel sounds. Absent: tenderness - *Routine Extremities Exam Absent: cyanosis, clubbing, edema - *Routine Skin Exam Present: warm. Absent: rash - *Routine Neurological Exam Present: alert, oriented X3 Assessment and Plan (1) Acute dyspnea Current visit: Yes Status: Acute Category: Medical Code(s): R06.00 - Dyspnea, unspecified (2) CAD (coronary artery disease) Current visit: Yes Status: Acute Category: Medical Code(s): I25.10 - Atherosclerotic heart disease of [place] coronary artery without angina pectoris (3) Diabetes Current visit: Yes Status: Acute Category: Medical Code(s): E11.9 - Type 2 diabetes mellitus without complications (4) Hyperlipidemia associated with type 2 diabetes mellitus Current visit: Yes Status: Acute Category: Medical Code(s): E11.69 - Type 2 diabetes mellitus with other specified complication; E78.5 - Hyperlipidemia, unspecified (5) COPD (chronic obstructive pulmonary disease) Current visit: Yes Status: Acute Category: Medical Code(s): J44.9 - Chronic obstructive pulmonary disease, unspecified (6) Obesity (BMI 30.0-34.9) Current visit: Yes Status: Acute Category: Medical Code(s): E66.9 - Obesity, unspecified (7) History of CVA (cerebrovascular accident) Current visit: Yes Status: Acute Category: Medical Code(s): Z86.73 - Personal history of transient ischemic attack (TIA), and cerebral infarction without residual deficits (8) Left bundle branch block (LBBB) Current visit: Yes Status: Acute Category: Medical Code(s): I44.7 - Left bundle-branch block, unspecified (9) Hypertension Current visit: No Status: Acute Category: Medical Code(s): I10 - Essential (primary) hypertension (10) Elevated TSH Current visit: Yes Status: Acute Category: Medical Code(s): R79.89 - Other specified abnormal findings of blood chemistry (11) CKD (chronic kidney disease) stage 3, GFR 30-59 ml/min Current visit: Yes Status: Acute Category: Medical Code(s): N18.3 - Chronic kidney disease, stage 3 (moderate) (12) Community acquired pneumonia Current visit: Yes Status: Acute Category: Medical Code(s): J18.9 - Pneumonia, unspecified organism - Assessment and plan all Dx Assessment and Plan for all problems:: OK to discharge home today with oral antibiotics, Xarelto 2.5 BID (increased bleeding risk discussed with patient) and HCTZ. Follow up with Cardiology next week and with Dr. Nolen in 2 weeks.
--- NOTE | 2018-03-16 16:04 | Discharge Summary ---
General - General Admission date:: 03/14/18 Discharge date: 03/16/18 HPI HPI: Ms. Ray is a 72-year-old white female with known coronary artery disease, hypertension, ongoing tobacco use and diabetes mellitus who presented to the ER with the complaint of exertional shortness of breath. Patient was apparently walking here in town up a slight hill when she became progressively short of breath to the point of needing to stop every 2 minutes to catch her breath. Patient denies chest pain but does note some nausea and profuse sweating. She states she needed to hold onto a pole so she would not fall. Her daughter then called 911. She was admitted overnight for cardiac monitoring with troponins returning normal. Cardiology was consulted for evaluation and recommendations. Hospital Course Hospital Course: Her Echo showed an EF of 55% with abnormal septal motion. Cardiology wanted to proceed with a heart cath. Her CXR revealed a pneumonia. Her WBC was elevated on admission. She was started on abx. Her cardiac cath showed non-flow limiting CAD. Medical therapy was recommended. Cardiology felt her SOA was likely just related to COPD, pneumonia, and deconditioning. They recommended to continue atenolol and lisinopril. They wanted to add low dose HCTZ 12.5 mg daily with a BMP in one week. She did get a few doses of IV Lasix and her supplemental oxygen was weaned. She had numerous voids after receiving IV Lasix. She wanted to go home. She was stable to be discharged home with oral antibiotics, Xarelto 2.5 BID (increased bleeding risk discussed with patient), and HCTZ. She will follow up with Cardiology next week and with Dr. Nolen in 2 weeks. Objective Vital signs: Temp Pulse Resp BP Pulse Ox 98.0 F 73 17 158/72 H 88 L 03/16/18 08:00 03/16/18 13:18 03/16/18 08:00 03/16/18 08:00 03/16/18 13:18 Narrative: - Constitutional no acute distress - *Routine HEENT Exam Head: Present: normocephalic Eye: Present: EOMI, PERRL ENT: Present: mucous membranes dry - *Routine Neck Exam Present: supple. Absent: lymphadenopathy - *Routine Respiratory Exam Present: decreased breath sounds, wheezes (faint throughout). Absent: rales <Irene Hussein - 03/14/18 08:46> - *Routine Cardiovascular Exam Present: RRR <Irene Hussein - 03/14/18 08:46> - *Routine Abdominal Exam Present: soft, normoactive bowel sounds. Absent: tenderness <Irene Hussein - 03/14/18 08:46> - *Routine Extremities Exam Absent: cyanosis, clubbing, edema <Irene Hussein - 03/14/18 08:46> - *Routine Skin Exam Present: warm. Absent: rash <Irene Hussein - 03/14/18 08:46> - *Routine Neurological Exam Present: alert, oriented X3 Results Labs on day of discharge: Labs from last 24 hours 03/16/18 03/16/18 03/16/18 11:09 06:35 05:40 WBC RBC Hgb Hct MCV MCH MCHC RDW Plt Count MPV Neut % (Auto) Lymph % (Auto) [place] % (Auto) Eos % (Auto) Baso % (Auto) Neut # (Auto) Lymph # (Auto) [place] # (Auto) Eos # (Auto) Baso # (Auto) Sodium 140 Potassium 4.2 Chloride 102 Carbon Dioxide 32 D Anion Gap 10.2 BUN 33 H D Creatinine 1.40 H Estimated Creat Clear 57 Estimated GFR 37 L Est GFR ( Amer) 45 L Glucose 209 H POC Glucose 241 H 208 H Calcium 9.1 03/16/18 03/15/18 03/15/18 05:40 21:33 16:09 WBC 7.4 RBC 4.51 Hgb 12.9 Hct 40.0 MCV 88.8 MCH 28.7 MCHC 32.3 RDW 13.8 Plt Count 153 MPV 8.5 Neut % (Auto) 58.4 Lymph % (Auto) 32.0 [place] % (Auto) 6.4 Eos % (Auto) 2.6 Baso % (Auto) 0.7 Neut # (Auto) 4.3 Lymph # (Auto) 2.4 [place] # (Auto) 0.5 Eos # (Auto) 0.2 Baso # (Auto) 0.1 Sodium Potassium Chloride Carbon Dioxide Anion Gap BUN Creatinine Estimated Creat Clear Estimated GFR Est GFR ( Amer) Glucose POC Glucose 255 H 192 H Calcium Preliminary micro results at discharge 03/14/18 00:45 Blood Culture - Preliminary Blood NO GROWTH AFTER 48 HOURS 03/14/18 00:45 Blood Culture - Preliminary Blood NO GROWTH AFTER 48 HOURS DS: Diagnosis - Discharge Diagnosis (1) Acute dyspnea Status: Acute (2) CAD (coronary artery disease) Status: Acute (3) Diabetes Status: Acute (4) Hyperlipidemia associated with type 2 diabetes mellitus Status: Acute (5) COPD (chronic obstructive pulmonary disease) Status: Acute (6) Obesity (BMI 30.0-34.9) Status: Acute (7) History of CVA (cerebrovascular accident) Status: Acute (8) Left bundle branch block (LBBB) Status: Acute (9) Hypertension Status: Acute (10) Elevated TSH Status: Acute (11) CKD (chronic kidney disease) stage 3, GFR 30-59 ml/min Status: Acute (12) Community acquired pneumonia Status: Acute Discharge Plan - Patient Discharge Instructions ACTIVITY: Continue current activity DIET: continue same diet Patient Instructions: High Cholesterol, DI for Chronic Obstructive Pulmonary Disease, DI for Pneumonia -- Adult, DI for Cardiac Catheterization, DI for Diabetes Type 2, DI for Surgical Site Infection, DI for Coronary Artery Disease - Follow up Plan Follow up with: Wiliam Nolen MD [Staff Physician] - 2 weeks Dayo Jewell MD [Staff Physician] - 1 week Disposition: Home, Self-Fci Medications: Home Medications Medication Instructions Recorded Confirmed Type Atenolol [Atenolol 50mg Tab] 50 mg PO BID 09/09/17 03/14/18 History Fenofibrate,Micronized [Tricor 134 mg PO DAILY 09/09/17 03/14/18 History 134mg] Insulin NPH Hum/Reg Insulin Hm 50 unit SQ BID 09/09/17 03/14/18 History [Novolin 70-30 100 Unit/ml Vial] Lisinopril [Lisinopril 20mg Tab] 20 mg PO DAILY 09/09/17 03/14/18 History Pantoprazole Sodium [Protonix 40mg 40 mg PO DAILY 09/09/17 03/14/18 History tablet] Saxagliptin HCl [Onglyza] 5 mg PO DAILY 09/09/17 03/14/18 History buPROPion HCl [Wellbutrin Xl] 300 mg PO DAILY 09/09/17 03/14/18 History Isosorbide Mononitrate [Imdur 30mg 30 mg PO BID 03/14/18 03/14/18 History ER tablet] Metformin HCl 850 mg PO BID 03/14/18 03/14/18 History Azithromycin [Zithromax 500mg Tab 500 mg PO DAILY #3 tab 03/16/18 Rx Tri-Mark] Cefdinir [Omnicef 300mg Capsule] 300 mg PO BID #20 cap 03/16/18 Rx Rivaroxaban [Xarelto] 2.5 mg PO BID #60 tablet 03/16/18 Rx hydroCHLOROthiazide [HCTZ 12.5mg 12.5 mg PO DAILY #30 capsule 03/16/18 Rx cap] Prescriptions/Medication Reconciliation: New hydroCHLOROthiazide [HCTZ 12.5mg cap] 12.5 mg PO DAILY #30 capsule Rivaroxaban [Xarelto] 2.5 mg PO BID #60 tablet Azithromycin [Zithromax 500mg Tab Tri-Mark] 500 mg PO DAILY #3 tab Cefdinir [Omnicef 300mg Capsule] 300 mg PO BID #20 cap Continue Saxagliptin HCl [Onglyza] 5 mg PO DAILY Lisinopril [Lisinopril 20mg Tab] 20 mg PO DAILY Insulin NPH Hum/Reg Insulin Hm [Novolin 70-30 100 Unit/ml Vial] 50 unit SQ BID Fenofibrate,Micronized [Tricor 134mg] 134 mg PO DAILY buPROPion HCl [Wellbutrin Xl] 300 mg PO DAILY Atenolol [Atenolol 50mg Tab] 50 mg PO BID Pantoprazole Sodium [Protonix 40mg tablet] 40 mg PO DAILY Isosorbide Mononitrate [Imdur 30mg ER tablet] 30 mg PO BID Metformin HCl 850 mg PO BID
== END 2018-03-16 13:38 | disposition home or self-care (01) | DRG 286 ==
LOC: SUPCPDRO → ER 00:30 → 2ND 03:07
PROVIDERS: ADMIT Family Medicine; ATTEND Family Medicine
CPT/HCPCS: 36415; 71010; 71045; 80048; 80061; 80076; 82803; 82962; 83605; 83735; 83880; 84436; 84443; 84484; 85007; 85025; 85347; 87040; 90686; 90732; 93005; 93306; 93458; 93571; 93572; 94640; 94761; 96365; 96375; 99152; 99153; 99285; C1725; C1769; J0153; J0456; J1644; Q9967

== ENCOUNTER → 2018-04-21 14:53 | Outpatient (CLI) | payer MEDICARE, MEDICAID, SELFPAY ==
[2018-04-21 15:34] LABS: Basophils # 0.1 K/mm3 (0-0.2); Basophils % 0.7 % (0.1-2.0); Eosinophils # 0.2 K/mm3 (0.0-0.4); Eosinophils % 1.9 % (0.1-12.0); Hemoglobin 15.7 g/dL (12.2-16.2); Lymphocytes # 1.8 K/mm3 (0.7-4.5); Lymphocytes % 18.1 % (10-50); Mean Corpuscular HGB Conc 32.7 g/dL (31.8-35.4); Mean Corpuscular Hemoglobin 28.9 pg (27.0-31.2); Mean Corpuscular Volume 88.4 fl (81-99); Mean Platelet Volume 10.2 fl (7.4-10.4); Monocytes # 0.6 K/mm3 (0.1-1.0); Monocytes % 5.6 % (1.7-9.3); Neutrophils # 7.2 K/mm3 (1.8-7.8); Neutrophils % 73.6 % (37.0-80.0); Platelet Count 227 K/mm3 (142-424); Red Blood Count 5.43 M/mm3 (4.20-5.40); Red Cell Distribution Width 13.7 % (11.5-17.5); White Blood Count 9.8 K/mm3 (4.8-10.8)
[2018-04-21 15:59] LABS: Anion Gap 14.3 mEq/L (5-15); Blood Urea Nitrogen 21 mg/dL (7-18); Carbon Dioxide 28 mmol/L (21.0-32.0); Chloride 102 mmol/L (98-107); Creatinine,Serum 1.34 mg/dL (0.55-1.02); Estimated Glomerular Filt Rate 39 ml/min (>60); Free T4 (Free Thyroxine) 1.11 ng/dl (0.76-1.46); GFR (African American) 47 ML/MIN (>60); Glucose 162 mg/dL (74-106); Potassium 4.3 mmoL/L (3.5-5.1); Sodium 140 mmol/L (136-145); Thyroid Stimulating Hormone 2.14 uIU/ml (0.358-3.740)
[2018-04-23 08:05] LABS: Vitamin D 25 Hydroxy 17.6 ng/mL (30.0-100.0)
[2018-04-23 19:18] LABS: Hemoglobin A1C 8.1 % (0.0-7.0)
== END ==
PROVIDERS: Physician Assistant; Visit Provider Emergency Medicine
DX: E11.9 Type 2 diabetes mellitus without complications (principal); E55.9 Vitamin D deficiency, unspecified; Z79.4 Long term (current) use of insulin
CPT/HCPCS: 80048; 82652; 83036; 84439; 84443; 85025

== ENCOUNTER 2018-05-29 21:59 | Observation (INO) ==
--- NOTE | 2018-05-29 22:07 | Emergency Department Note ---
ED Disposition Clinical Impression: COPD with exacerbation Disposition: Admitted as Observation Condition on Discharge: Fair Time of Disposition: 00:39 - Critical Care Critical Care Time: No Attestation: On 05/29/18, the high probability of a clinically significant, sudden or life threatening deterioration of the following system(s) required my full and direct attention, intervention and personal management. The time I documented below is in addition to time spent performing reported procedures but includes the following listed in this critical care notation. Medical Decision Making - Medical Records Medical records reviewed: Yes: I reviewed the patient's medical records. - Alfa Inquiry Pt receiving controlled substance: No Alfa was queried for this patient: No Vital Signs: 05/29/18 22:01 05/29/18 23:08 05/29/18 23:30 Temperature 99.8 F H 99.5 F Temperature Source Oral Oral Pulse Rate [Right Brachial] 123 H 111 H 105 H Respiratory Rate 18 18 20 Blood Pressure [Right Arm] 147/114 H 138/76 148/71 H Blood Pressure Mean [Right Arm] 125 96 96 Blood Pressure Source [Right Arm] Automatic Cuff Automatic Cuff Automatic Cuff Blood Pressure Position [Right Arm] Sitting Sitting Supine 02 Sat by Pulse Oximetry 88 L 92 L 88 L Oxygen Delivery Method Room Air Nasal Cannula Nasal Cannula Oxygen Flow Rate (LPM) 2 2 05/30/18 00:34 Temperature Temperature Source Pulse Rate [Right Brachial] 108 H Respiratory Rate 18 Blood Pressure [Right Arm] 140/72 Blood Pressure Mean [Right Arm] 94 Blood Pressure Source [Right Arm] Automatic Cuff Blood Pressure Position [Right Arm] Sitting 02 Sat by Pulse Oximetry 96 Oxygen Delivery Method Nasal Cannula Oxygen Flow Rate (LPM) 2 - Lab Data Lab results reviewed: Yes: I reviewed the patient's lab results. Lab Results 05/29/18 22:21: WBC 9.9, RBC 5.04, Hgb 13.9, Hct 43.2, MCV 85.6, MCH 27.5, MCHC 32.2, RDW 13.1, Plt Count 225, MPV 9.2, Neut % (Auto) 73.4, Lymph % (Auto) 18.3, [place] % (Auto) 5.8, Eos % (Auto) 1.8, Baso % (Auto) 0.7, Neut # (Auto) 7.2, Lymph # (Auto) 1.8, [place] # (Auto) 0.6, Eos # (Auto) 0.2, Baso # (Auto) 0.1 05/29/18 22:21: Sodium 140, Potassium 3.5, Chloride 97 L, Carbon Dioxide 35 H, Anion Gap 11.5, BUN 21 H, Creatinine 1.16 H, Estimated Creat Clear 69, Estimated GFR 46 L, Est GFR ( Amer) 56 L, Glucose 296 H, Calcium 8.9, Total Bilirubin 0.2, AST 16, ALT 19, Alkaline Phosphatase 94, Total Protein 7.8, Albumin 2.4 L, Globulin 5.4 H, Albumin/Globulin Ratio 0.4 L 05/29/18 22:21: Lactate 2.0 05/29/18 23:42: Stool Occult Blood Negative Result diagrams: 05/29/18 22:21 05/29/18 22:21 Orders (Tests/Meds): ED MEDICATIONS Generic Name Dose Route Start Last Admin Trade Name Freq PRN Reason Stop Dose Admin Sodium Chloride 10 ml 05/29/18 22:13 Saline Flush 10ml Syringe IV 06/28/18 22:12 NEEDED PRN Maintain IV Site Discontinued Medications Generic Name Dose Route Start Last Admin Trade Name Freq PRN Reason Stop Dose Admin Albuterol/Ipratropium 3 ml 05/29/18 22:13 05/29/18 22:14 Duoneb 3ml Neb IH 05/29/18 22:14 3 ml ONCE ONE Administration Methylprednisolone Sodium Succinate 125 mg 05/29/18 22:13 05/29/18 22:14 Solu-Medrol 125mg/2ml Vial IV 05/29/18 22:14 125 mg ONCE ONE Administration ORDERS Category Date Time Status XR chest portable Stat Exams 05/29/18 22:22 Taken UA [Urinalysis and Microscopic] Stat Lab 05/30/18 00:13 Ordered Blood Culture Stat Micro 05/29/18 22:21 Received ECG Request by /Nse Stat Y 05/29/18 22:12 Ordered - Physician Consults Physician Consulted: travis Reason -: Admission, Pt condition Comment/Response: obs, start on antibiotics and steroids General Adult HPI - General Stated complaint: Vaginal Bleeding Time Seen by Provider: 05/29/18 22:07 Mode of Arrival: EMS Source of Information: Patient Limitations: No Limitations - History of Present Illness HPI narrative: states she's bleeding from where she pees. Denies abdominal pain. 2 episodes of diarrhea. SOA with wheezing on arrival. - Related Data Home Medications Medication Instructions Recorded Confirmed Fenofibrate,Micronized [Tricor 134 mg PO DAILY 09/09/17 05/29/18 134mg] Saxagliptin HCl [Onglyza] 5 mg PO DAILY 09/09/17 05/29/18 buPROPion HCl [Wellbutrin Xl] 300 mg PO DAILY 09/09/17 05/29/18 insulin human U-100 NPH-regulr 50 unit SQ BID ml 05/09/18 05/29/18 70-30 mix 100 unit/mL subcutaneous susp Cholecalciferol (Vitamin D3) 1,000 unit PO DAILY 05/29/18 05/29/18 [Vitamin D3 1,000 Unit Cap] Ergocalciferol (Vitamin D2) 50,000 unit PO QWEEK 05/29/18 05/29/18 [Drisdol] Isosorbide Mononitrate [Imdur 60mg 60 mg PO DAILY 05/29/18 05/29/18 ER tablet] Metoprolol Succinate 50 mg PO DAILY 05/29/18 05/29/18 Rivaroxaban [Xarelto] 2.5 mg PO BID 05/29/18 05/29/18 hydroCHLOROthiazide [HCTZ 25mg 25 mg PO DAILY 05/29/18 05/29/18 tab] Previous Rx's Medication Instructions Recorded metformin 850 mg tablet 850 mg PO BID #180 tab 05/06/18 lisinopril 20 mg tablet 20 mg PO DAILY #90 tab 05/23/18 pantoprazole 40 mg tablet,delayed 40 mg PO DAILY #90 tab 05/23/18 release Allergies Allergy/AdvReac Type Severity Reaction Status Date / Time ibuprofen Allergy Unknown Verified 05/29/18 22:08 [facility] History - Hepatitis A Screen Attestation statement:: This patient has been screened for Hepatitis A risk factors. I have reviewed the patient's past medical history: Yes Medical History: Reports:: Chronic Obstructive Pulmonary Disease (COPD), Coronary Artery Disease, Cerebrovascular Accident, Diabetes Mellitus Type 2, Hyperlipidemia, Hypertension Denies:: Cancer Other Medical History: Reports: Arthritis Other Surgeries: Yes: Cardiac Catheterization, Cholecystectomy, Other Amputation: No Fractures: No - Social History Smoking Status: Current every day smoker Tobacco Type: cigarettes # Packs/Day (cigarettes): 1 #Yrs smoked (if former smoker): 58 Alcohol Intake: never Substance Use Type: denies use Occupational Status: disabled Household Members: children Family Hx:: Cancer, Hyperlipidemia, Hypertension, Coronary Artery Disease Comment: Mother-Heart Problems ROS Obtained: Yes All systems reviewed & no additional complaints - Constitutional Constitutional: Reports chills, Reports fever(s) - Eyes Eyes: Denies change in vision - ENT Ears, Nose, Mouth, and Throat: Reports system reviewed and no additional complaints, except as docu, Denies sore throat, Denies throat swelling - Cardiovascular Cardiovascular: Denies lightheadedness, Denies pedal edema, Denies rapid heart rate, Denies slow heart rate - Respiratory Respiratory: Yes system reviewed and no additional complaints, except as docu, Yes chest congestion, Yes cough, Yes dyspnea, Yes dyspnea on exertion, Yes wheezing - Gastrointestinal Gastrointestingal: Reports: system reviewed and no additional complaints, except as docu. Denies: abdominal pain - Musculoskeletal Musculoskeletal: Denies muscle weakness, Denies stiffness - Integumentary/Breasts Skin/Breast: Denies rash - Hematologic/Lymphatic Henatologic/Lymphatic: Denies easy bleeding, Denies easy bruising Physical Exam - General General appearance: alert, in no apparent distress - Head Head exam: atraumatic, normocephalic, normal inspection - Eye Eye exam: Present: normal appearance, PERRL, EOMI - ENT ENT exam: Present: normal exam, normal oropharynx, mucous membranes moist, TM's normal bilaterally, normal external ear exam - Respiratory Respiratory exam: Present: wheezes, prolonged expiratory phase. Absent: normal lung sounds bilaterally, respiratory distress - Cardiovascular Cardiovascular exam: Present: regular rate, irregular rhythm. Absent: JVD - Abdominal Exam Abdominal exam: Present: soft, normal bowel sounds. Absent: distention, tenderness, guarding - Speculum exam: Present: normal speculum exam. Absent: vaginal bleeding - Extremities Exam Extremities exam: Present: normal inspection, full ROM, normal capillary refill. Absent: calf tenderness - Back Exam Back exam: Present: normal inspection. Absent: tenderness - Neurological Exam Neurological exam: Present: alert, oriented X3 - Psychiatric Psychiatric exam: Present: normal affect, normal mood - Skin Skin exam: Present: warm, dry, intact, normal color - Lymphatic Lymphatic Findings: no adenopathy
[2018-05-29 22:29] LABS: Basophils # 0.1 K/mm3 (0-0.2); Basophils % 0.7 % (0.1-2.0); Eosinophils # 0.2 K/mm3 (0.0-0.4); Eosinophils % 1.8 % (0.1-12.0); Hematocrit 43.2 % (37.0-47.0); Hemoglobin 13.9 g/dL (12.2-16.2); Lymphocytes # 1.8 K/mm3 (0.7-4.5); Lymphocytes % 18.3 % (10-50); Mean Corpuscular HGB Conc 32.2 g/dL (31.8-35.4); Mean Corpuscular Hemoglobin 27.5 pg (27.0-31.2); Mean Corpuscular Volume 85.6 fl (81-99); Mean Platelet Volume 9.2 fl (7.4-10.4); Monocytes # 0.6 K/mm3 (0.1-1.0); Monocytes % 5.8 % (1.7-9.3); Neutrophils # 7.2 K/mm3 (1.8-7.8); Neutrophils % 73.4 % (37.0-80.0); Platelet Count 225 K/mm3 (142-424); Red Blood Count 5.04 M/mm3 (4.20-5.40); Red Cell Distribution Width 13.1 % (11.5-17.5); White Blood Count 9.9 K/mm3 (4.8-10.8)
[2018-05-29 22:48] LABS: Albumin Level 2.4 gm/dL (3.4-5.0); Albumin/Globulin Ratio 0.4 (1.1-1.8); Anion Gap 11.5 mEq/L (5-15); Bilirubin,Total 0.2 mg/dL (0.2-1.0); Calcium 8.9 mg/dL (8.5-10.1); Globulin 5.4 gm/dl (1.3-3.2); Potassium 3.5 mmoL/L (3.5-5.1); Total Protein,Serum 7.8 gm/dL (6.4-8.2)
[2018-05-30 06:10] LABS: Basophils % 0.6 % (0.1-2.0); Eosinophils % 0.3 % (0.1-12.0); Hematocrit 41.6 % (37.0-47.0); Hemoglobin 13.1 g/dL (12.2-16.2); Lymphocytes # 0.6 K/mm3 (0.7-4.5); Lymphocytes % 8.7 % (10-50); Mean Corpuscular HGB Conc 31.4 g/dL (31.8-35.4); Mean Corpuscular Hemoglobin 27.6 pg (27.0-31.2); Mean Corpuscular Volume 87.7 fl (81-99); Mean Platelet Volume 9.4 fl (7.4-10.4); Monocytes # 0.3 K/mm3 (0.1-1.0); Neutrophils # 5.8 K/mm3 (1.8-7.8); Neutrophils % 86.4 % (37.0-80.0); Platelet Count 185 K/mm3 (142-424); Red Blood Count 4.74 M/mm3 (4.20-5.40); Red Cell Distribution Width 12.9 % (11.5-17.5); White Blood Count 6.7 K/mm3 (4.8-10.8)
[2018-05-30 06:18] LABS: Anion Gap 7.8 mEq/L (5-15); Calcium 8.6 mg/dL (8.5-10.1); Potassium 3.8 mmoL/L (3.5-5.1)
[2018-05-30 07:08] LABS: Microscopic, Urine URINE MICROSCOPIC (MICROSCOPIC)
[2018-05-30 07:12] LABS: Appearance,Urine CLEAR (Clear); Bilirubin,Urine Negative (Negative); Blood, Urine Negative (Negative); Color,Urine YELLOW (Yellow); Glucose,Urine (UA) 3+ (Negative); Ketones,Urine Negative (Negative); Leukocyte Esterase,Urine Negative (Negative); Protein,Urine TRACE (Negative); Specific Gravity, Urine 1.015 (1.005-1.030); Urobilinogen,Urine 0.2 EU/dl (0.2)
[2018-05-30 07:25] LABS: Bacteria,Urine Trace /lpf; Mucus,Urine Trace /lpf; RBC,Urine Occasional #/hpf (0-3); WBC,Urine Occasional #/hpf (0-3)
[2018-05-30 07:28] LABS: Hypochromasia 1+; Lymphocytes % 9 % (10-50); Monocytes % 2 % (2-9); Neutrophils % 89 % (42-76); Total Cells Counted 100
--- NOTE | 2018-05-30 07:33 | Pharmacy Consult Notes ---
[facility] Pharmacy VTE Monitoring - Patient Demographics Admission date: 05/29/18 Report Date: 05/30/18 Time: 07:33 Allergies/Adverse Reactions: Patient Allergies ibuprofen Allergy (Unknown, Verified 05/29/18 22:08) Height: 1.7 m Weight: 88.677 kg Patient Problems: Current Active Problems COPD with exacerbation (Acute) - VTE Risk Labs: VTE Related Lab Results Hgb 13.1 g/dL (12.2-16.2) 05/30/18 06:00 Hct 41.6 % (37.0-47.0) 05/30/18 06:00 Plt Count 185 K/mm3 (142-424) 05/30/18 06:00 BUN 21 mg/dL (7-18) H 05/30/18 06:00 Creatinine 1.07 mg/dL (0.55-1.02) H 05/30/18 06:00 Estimated Creat Clear 68 mL/min (50-200) 05/30/18 06:00 Was VTE Risk Assessment Performed: Yes VTE Risk Level: Low Risk - Prophylaxis VTE Prophylaxis Ordered?: Yes Types of VTE Prophylaxis: TEDS Knee High, Pharmacological Location of Applied Device: Bilateral Lower Extremeties Pharmacologic Type: Other (XARELTO) - VTE Diagnosis Confirmed Treatment or plan recommended: Continue Current Treatment
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
== END 2018-05-30 11:33 | disposition home or self-care (01) ==
LOC: ER 21:59 → 2ND 05-30 00:33 → INTOOBSV 05-30 01:20 → 2ND 05-30 01:21
PROVIDERS: ADMIT Internal Medicine Adolescent Medicine; ATTEND Emergency Medicine
CPT/HCPCS: 36415; 71010; 71045; 80048; 80053; 81001; 82272; 83605; 85007; 85025; 87040; 87070; 87077; 87186; 87205; 93005; 96374; 99285; G0328; G0378; J1956

== ENCOUNTER → 2018-08-04 16:05 | Outpatient (CLI) | payer MEDICARE, MEDICAID, SELFPAY ==
[2018-08-04 17:08] LABS: Hemoglobin A1C 9.7 % (0.0-7.0)
== END ==
PROVIDERS: Visit Provider Emergency Medicine
DX: R79.89 Other specified abnormal findings of blood chemistry (principal); E11.9 Type 2 diabetes mellitus without complications; Z79.4 Long term (current) use of insulin
CPT/HCPCS: 83036

== ENCOUNTER → 2018-08-21 13:09 | Outpatient (CLI) | payer MEDICARE, MEDICAID, SELFPAY ==
[2018-08-21 15:28] LABS: Anion Gap 14.6 mEq/L (5-15); Blood Urea Nitrogen 18 mg/dL (7-18); Calcium 9.2 mg/dL (8.5-10.1); Carbon Dioxide 29 mmol/L (21.0-32.0); Chloride 99 mmol/L (98-107); Creatinine,Serum 1.13 mg/dL (0.55-1.02); Estimated Glomerular Filt Rate 48 ml/min (>60); GFR (African American) 58 ML/MIN (>60); Glucose 211 mg/dL (74-106); Potassium 4.6 mmoL/L (3.5-5.1); Sodium 138 mmol/L (136-145)
== END ==
PROVIDERS: Visit Provider Internal Medicine Cardiovascular Disease
DX: I11.9 Hypertensive heart disease without heart failure (principal); R06.02 Shortness of breath
CPT/HCPCS: 36415; 80048

== ENCOUNTER 2019-08-31 15:38 | Observation (INO) | payer MEDICARE, MEDICAID, SELFPAY ==
[2019-08-31] VITALS (7 sets, daily range): BP systolic 98–137; BP diastolic 54–73; PULSE 73–114; RESP 16–20; TEMP 36.7–39.1; O2SAT 92–98; BMI 293466.6; BMI 29.4; BMI 33.3
[2019-08-31 16:16] LABS: Microscopic, Urine URINE MICROSCOPIC (MICROSCOPIC)
[2019-08-31 16:18] LABS: Basophils # 0.1 K/mm3 (0-0.2); Basophils % 0.5 % (0.1-2.0); Eosinophils % 0.1 % (0.1-12.0); Hematocrit 41.7 % (37.0-47.0); Lymphocytes # 0.9 K/mm3 (0.7-4.5); Lymphocytes % 7.7 % (10-50); Mean Corpuscular HGB Conc 33.5 g/dL (31.8-35.4); Mean Corpuscular Hemoglobin 28.7 pg (27.0-31.2); Mean Corpuscular Volume 85.8 fl (81-99); Mean Platelet Volume 9.5 fl (7.4-10.4); Monocytes # 0.5 K/mm3 (0.1-1.0); Monocytes % 4.6 % (1.7-9.3); Neutrophils # 9.9 K/mm3 (1.8-7.8); Neutrophils % 87.1 % (37.0-80.0); Platelet Count 190 K/mm3 (142-424); Red Blood Count 4.86 M/mm3 (4.20-5.40); White Blood Count 11.4 K/mm3 (4.8-10.8)
--- NOTE | 2019-08-31 16:18 | CT_ITS ---
PROCEDURE: CT CHEST WO CON CLINICAL INDICATION: fever Fever and shortness of air COMPARISON: No exams were available for comparison TECHNIQUE: Axial images obtained with sagittal and coronal reformats. All CT scans at the facility use one or more dose reduction, viz: automated exposure control, ma/kV adjustment per patient size (including targeted exams where dose is matched to indication, i.e. head), or iterative reconstruction technique. FINDINGS: HEART AND MEDIASTINAL STRUCTURES: Coronary artery calcification. Mild aortic valve calcification. LUNGS AND PLEURAL SPACES: COPD. 3 mm noncalcified nodule right lower lobe. No lobar consolidation or collapse. Mild atelectatic or fibrotic change within the left lung base BONY STRUCTURES: No acute bony abnormalities apparent. UPPER ABDOMEN: Fatty liver.. Mild enlargement of the adrenal glands on both sides. Small periportal lymph nodes are present ADDITIONAL FINDINGS: No other significant abnormalities. IMPRESSION: No acute finding Nonemergent findings as described above Dictated by: Radames Mitchell MD 08/31/2019 17:12 Electronically signed by Radames Mitchell MD in [place] 08/31/2019 17:12
[2019-08-31 16:20] LABS: MANUAL DIFFERENTIAL MANUAL DIFFERENTIAL (MANUAL DIFF)
[2019-08-31 16:27] LABS: Appearance,Urine CLEAR (Clear); Blood, Urine 2+ (Negative); Color,Urine YELLOW (Yellow); Glucose,Urine (UA) Negative (Negative); Ketones,Urine TRACE (Negative); Leukocyte Esterase,Urine 1+ (Negative); Nitrate,Urine POSITIVE (Negative); Protein,Urine 3+ (Negative); Specific Gravity, Urine 1.025 (1.005-1.030)
[2019-08-31 16:27] LABS: Lymphocytes % 8 % (10-50); Monocytes % 3 % (2-9); Neutrophils % 88 % (42-76); Platelet Estimate Normal; RBC Morphology Normal; Total Cells Counted 100
[2019-08-31 16:28] LABS: Alanine Aminotransferase 29 U/L (12-78); Albumin Level 4.4 g/dl (3.5-5.0); Albumin/Globulin Ratio 1.2 (1.1-1.8); Alkaline Phosphatase 95 U/L (38-126); Anion Gap 14.6 mEq/L (5-15); Aspartate Amino Transferase 37 U/L (14-36); Bilirubin,Total 0.7 mg/dl (0.2-1.3); Blood Urea Nitrogen 33 mg/dl (7-17); Calcium 9.4 mg/dl (8.4-10.2); Carbon Dioxide 32 mmol/L (22.0-30.0); Chloride 94 mmol/L (98-107); Creatinine Clearance Estimated 58 mL/min (50-200); Estimated Glomerular Filt Rate 44 ml/min (>60); GFR (African American) 54 ML/MIN (>60); Globulin 3.8 g/dL (1.3-3.2); Glucose 208 mg/dl (74-100); Potassium 3.6 mmoL/L (3.5-5.1); Sodium 137 mmol/L (136-145); Total Protein,Serum 8.2 g/dl (6.3-8.2)
[2019-08-31 16:28] LABS: Bilirubin,Urine Negative (Negative)
[2019-08-31 16:33] LABS: Lactic Acid 1.9 mmol/L (0.7-2.1)
[2019-08-31 16:41] LABS: Bacteria,Urine 1+ /lpf
[2019-08-31 17:00] LABS: Coronavirus 19 IgG Antibody Negative (Negative); Coronavirus 19 IgM Antibody Negative (Negative)
--- NOTE | 2019-08-31 17:30 | HMH.EDWEAK ---
ED Disposition Clinical Impression: UTI (urinary tract infection) Disposition: Home, Self-Care Condition on Discharge: Good Prescriptions: levoFLOXacin [Levaquin 500mg tab] 500 mg PO DAILY 7 Days #7 tab Transmission Status: Pending to [facility] Referrals: Antonino Jeffers MD [Primary Care Provider] - - Critical Care Critical Care Time: No Attestation: On 08/31/19, the high probability of a clinically significant, sudden or life threatening deterioration of the following system(s) required my full and direct attention, intervention and personal management. The time I documented below is in addition to time spent performing reported procedures but includes the following listed in this critical care notation. Medical Decision Making - Medical Records Medical records reviewed: Yes: I reviewed the patient's medical records. - Alfa Inquiry Pt receiving controlled substance: No Vital Signs: 08/31/19 15:36 Temperature 102.4 F H Temperature Source Oral Pulse Rate [Right] 114 H Respiratory Rate 20 Blood Pressure [Right Arm] 137/73 Blood Pressure Mean [Right Arm] 94 02 Sat by Pulse Oximetry 94 L Oxygen Delivery Method Room Air - Lab Data Lab results reviewed: Yes: I reviewed the patient's lab results. Lab Results 08/31/19 15:30: WBC 11.4 H, RBC 4.86, Hgb 14.0, Hct 41.7, MCV 85.8, MCH 28.7, MCHC 33.5, RDW 14.0, Plt Count 190, MPV 9.5, Neut % (Auto) 87.1 H, Lymph % (Auto) 7.7 L, [place] % (Auto) 4.6, Eos % (Auto) 0.1, Baso % (Auto) 0.5, Neut # (Auto) 9.9 H, Lymph # (Auto) 0.9, [place] # (Auto) 0.5, Eos # (Auto) 0.0, Baso # (Auto) 0.1, Total Counted 100, Neutrophils % (Manual) 88 H, Band Neutrophils % 1.0, Lymphocytes % (Manual) 8 L, Monocytes % (Manual) 3, Platelet Estimate Normal, RBC Morphology Normal 08/31/19 15:30: Sodium 137, Potassium 3.6, Chloride 94 L, Carbon Dioxide 32 H, Anion Gap 14.6, BUN 33 H, Creatinine 1.20 H, Estimated Creat Clear 58, Estimated GFR 44 L, Est GFR ( Amer) 54 L, Glucose 208 H, Calcium 9.4, Total Bilirubin 0.7, AST 37 H, ALT 29, Alkaline Phosphatase 95, Total Protein 8.2, Albumin 4.4, Globulin 3.8 H, Albumin/Globulin Ratio 1.2 08/31/19 15:30: SARS-CoV-2 IgG Ab (Rapid) Negative, SARS-CoV-2 IgM Ab (Rapid) Negative 08/31/19 15:55: Urine Color Yellow, Urine Appearance Clear, Urine pH 6.0, Ur Specific [place] 1.025, Urine Protein 3+, Urine Glucose (UA) Negative, Urine Ketones Trace, Urine Blood 2+, Urine Nitrate Positive, Urine Bilirubin Negative, Urine Urobilinogen 2.0, Ur Leukocyte Esterase 1+ A, Urine RBC 5-10, Urine WBC 10-20, Ur Squamous Epith Cells 5-10, Urine Bacteria 1+ 08/31/19 16:00: Lactate 1.9 Result diagrams: 08/31/19 15:30 08/31/19 15:30 Orders (Tests/Meds): ED MEDICATIONS Discontinued Medications Generic Name Dose Route Start Last Admin Trade Name Freq PRN Reason Stop Dose Admin Acetaminophen 1,000 mg 08/31/19 16:11 08/31/19 16:31 Tylenol 500mg Tablet PO 08/31/19 16:12 1,000 mg ONCE ONE Administration Sodium Chloride 1,000 mls @ 999 mls/hr 08/31/19 16:15 08/31/19 16:31 Sod Chlor 0.9% 1000ml Bag IV 08/31/19 17:15 999 mls/hr .[id number] GENA Administration ORDERS Category Date Time Status Respiratory Panel (COVID), PCR Stat Lab 08/31/19 16:17 Ordered Blood Culture Stat Micro 08/31/19 16:00 Received Urine Culture Stat Micro 08/31/19 15:55 Received - CT Data CT Scan: Chest Time Received: 18:[address] Reviewed: Yes: I have viewed the radiologist's interpretation Preliminary Findings: Normal/NAD Weakness HPI - General Chief complaint: Weakness Stated complaint: WEAK Time Seen by Provider: 08/31/19 17:30 Mode of Arrival: EMS Source of Information: Patient Limitations: No Limitations Description of Symptoms (Recalled from ER Triage Doc. by RN): PATIENT HAS INCREASED URINATION WITH BURNING. GENERAL WEAKNESS FOR 1 WEEK. FAMILY CALLED OUT DUE TO PATIENT NOT BEING ABLE TO GET UP FOR BATHROOM FLOOR. - History of Pres
--- NOTE | 2019-08-31 18:58 | PC.NURSE ---
Dr Palomares speaking with Dr Marin
[2019-08-31 19:18] LABS: Adenovirus,PCR Not Detected (NotDetected); Bordetella Pertussis Not Detected (NotDetected); Chlamydophila Pneumoniae, PCR Not Detected (NotDetected); Coronavirus 19, PCR Not Detected (NotDetected); Coronavirus 229E Not Detected (NotDetected); Coronavirus NL63 Not Detected (NotDetected); Coronavirus OC43 Not Detected (NotDetected); Coronovirus HKU1,PCR Not Detected (NotDetected); Human Metapneumovirus Not Detected (NotDetected); Influenza A, PCR Not Detected (NotDetected); Influenza AH1, 2009 Not Detected (NotDetected); Influenza AH1, PCR Not Detected (NotDetected); Influenza AH3,PCR Not Detected (NotDetected); Influenza B, PCR Not Detected (NotDetected); Mycoplasma Pneumoniae, PCR Not Detected (NotDected); Parainfluenza 1, PCR Not Detected (NotDetected); Parainfluenza 2, PCR Not Detected (NotDetected); Parainfluenza 3, PCR Not Detected (NotDetected); Parainfluenza 4, PCR Not Detected (NotDetected); Respiratory Syncytial Virus Not Detected (NotDetected); Rhinovirus/Enterovirus Not Detected (NotDetected)
--- NOTE | 2019-08-31 20:00 | PC.NURSE ---
waiting on covid test result
--- NOTE | 2019-08-31 21:17 | PC.NURSE ---
patient up to floor via stretcher.
--- NOTE | 2019-09-01 03:13 | PC.NURSE ---
PT A&OX4. PT TOLERATING RA WELL T/O SHIFT. PT RECEIVED BED BAD UPON ADMISSION. F/C PRESENT, URINE NOTED TO BE VERY DARK YELLOW AND CLOUDY. PT HAS BEEN IN BED RESTING WITH EYES CLOSED MAJORITY OF SHIFT. PT C/O HEADACHE AND REQUESTED TYLENOL. ADMINISTERED PER NITROGLYCERIN DISTRIBUTOR MD WATSON. ON REASSESSMENT PT RESTING IN BED WITH EYES CLOSED. MEDS VERIFIED W/ PT AND ARE LOCKED IN DRAWER. VSS WILL CONTINUE TO MONITOR.
[2019-09-01 04:00] VITALS: BP 103/47; PULSE 80; RESP 20; TEMP 36.7; O2SAT 96
[2019-09-01 04:30] VITALS: BMI 33.6
[2019-09-01 06:23] LABS: POC Glucose,Bedside 87 (70-110)
[2019-09-01 06:38] LABS: Basophils % 0.5 % (0.1-2.0); Lymphocytes # 1.2 K/mm3 (0.7-4.5); Mean Platelet Volume 9.5 fl (7.4-10.4); Monocytes # 0.5 K/mm3 (0.1-1.0)
[2019-09-01 06:49] LABS: Chloride 100 mmol/L (98-107); Potassium 3.5 mmoL/L (3.5-5.1); Sodium 140 mmol/L (136-145)
[2019-09-01 06:52] LABS: Alanine Aminotransferase 18 U/L (12-78); Albumin Level 3.2 g/dl (3.5-5.0); Alkaline Phosphatase 61 U/L (38-126); Anion Gap 10.5 mEq/L (5-15); Aspartate Amino Transferase 25 U/L (14-36); Bilirubin,Total 0.4 mg/dl (0.2-1.3); Blood Urea Nitrogen 38 mg/dl (7-17); Carbon Dioxide 33 mmol/L (22.0-30.0); Creatinine Clearance Estimated 47 mL/min (50-200); Eosinophils % 0.5 % (0.1-12.0); Estimated Glomerular Filt Rate 30 ml/min (>60); GFR (African American) 36 ML/MIN (>60); Globulin 3.2 g/dL (1.3-3.2); Glucose 89 mg/dl (74-100); Lymphocytes % 17.4 % (10-50); Mean Corpuscular HGB Conc 33.8 g/dL (31.8-35.4); Mean Corpuscular Hemoglobin 29.2 pg (27.0-31.2); Mean Corpuscular Volume 86.5 fl (81-99); Monocytes % 7.3 % (1.7-9.3); Neutrophils # 5.1 K/mm3 (1.8-7.8); Neutrophils % 74.3 % (37.0-80.0); Platelet Count 124 K/mm3 (142-424); Red Blood Count 4.05 M/mm3 (4.20-5.40); Total Protein,Serum 6.4 g/dl (6.3-8.2); White Blood Count 6.9 K/mm3 (4.8-10.8)
[2019-09-01 06:54] LABS: Hemoglobin 11.8 g/dL (12.2-16.2)
[2019-09-01 07:03] LABS: Calcium 8.1 mg/dl (8.4-10.2)
--- NOTE | 2019-09-01 07:03 | P.CONPHA_ITS ---
[facility] Pharmacy VTE Monitoring - Patient Demographics Allergies/Adverse Reactions: Patient Allergies ibuprofen Allergy (Unknown, Verified 07/02/19 11:01) Height: 1.7 m Weight: 97.267 kg Patient Problems: Current Active Problems UTI (urinary tract infection) (Acute) - VTE Risk Labs: VTE Related Lab Results Hgb 11.8 g/dL (12.2-16.2) L D 09/01/19 06:08 Hct 35.0 % (37.0-47.0) L 09/01/19 06:08 Plt Count 124 K/mm3 (142-424) L D 09/01/19 06:08 BUN 38 mg/dl (7-17) H 09/01/19 06:08 Creatinine 1.70 mg/dl (0.52-1.04) H D 09/01/19 06:08 Estimated Creat Clear 58 mL/min (50-200) 08/31/19 15:30 Clinical Trial Participant: No - Prophylaxis VTE Prophylaxis Ordered?: Yes Types of VTE Prophylaxis: TEDS Knee High
[2019-09-01 08:00] VITALS: BP 107/47; PULSE 83; RESP 20; TEMP 36.7; O2SAT 91
--- NOTE | 2019-09-01 08:36 | HMH.HP ---
*Chief complaint: Painful Urination *History of present illness: She is lying in bed this morning, fluids infusing, and Flynn draining clear juan pablo urine. She states she still has some lower abdominal pain, but overall feels much better. 73-year-old female presents to the ED with dysuria for one week, urgency/freq, strong urine odor and a 1 day history of fever, shakes, and chills. She does report a history of UTIs. Also complains of generalized weakness and overall fatigue. She denies N/V/D or body aches. She denies any urinary surgery or kidney stones in the past. Treatment in the ED includes Invanz, levofloxacin, and IV fluids. BUN/creatinine in ED 33/1.2, potassium 3.5, sodium 140 and elevated white blood cell count 11.4. Upon presentation to the ED pulse 114, temperature 102.4, Urinalysis showing leukocyte esterase 1+ and preliminary urine culture showing gram-negative rods. COVID-19 PCR negative, RELL-COV-2 IgG negative, RELL-COV-2 IgM negative. . CXR 08/31/19: FINDINGS: HEART AND MEDIASTINAL STRUCTURES: Coronary artery calcification. Mild aortic valve calcification. LUNGS AND PLEURAL SPACES: COPD. 3 mm noncalcified nodule right lower lobe. No lobar consolidation or collapse. Mild atelectatic or fibrotic change within the left lung base BONY STRUCTURES: No acute bony abnormalities apparent. UPPER ABDOMEN: Fatty liver.. Mild enlargement of the adrenal glands on both sides. Small periportal lymph nodes are present ADDITIONAL FINDINGS: No other significant abnormalities. IMPRESSION: No acute finding Nonemergent findings as described above Dictated by: Stephen [facility] History Medical History: Reports:: Chronic Obstructive Pulmonary Disease (COPD), Coronary Artery Disease, Cerebrovascular Accident, Diabetes Mellitus Type 2, Hyperlipidemia, Hypertension Denies:: Cancer, Diabetes Mellitus Type 1, MRSA *Have you ever received a pneumonia vaccine?: No *Have you received a flu vaccine this season?: No Other Medical History: Reports: Arthritis Other Surgeries: Yes: Cardiac Catheterization, Cholecystectomy, Colonoscopy, Hysterectomy-Total, Other Amputation: No Fractures: No - *Social History Last grade of school completed: 9th or 10th Smoking Status: Former smoker Tobacco Type: cigarettes # Packs/Day (cigarettes): 1 #Yrs smoked (if former smoker): 58 Alcohol Intake: never Substance Use Type: denies use *Occupational Status:: disabled Housing: apartment Household Members: children *Travel in the last 8 weeks: None Family Hx:: Heart Attack, Hypertension Review of Systems - Review of Systems Review of systems:: pertinent systems reviewed and negative unless documented below - Constitutional Reports fatigue, Reports lack of energy, Reports malaise - Eyes Denies blurry vision, Denies double vision - ENT Denies lip swelling, Denies pain with swallowing - *Cardiovascular Denies chest pain, Denies shortness of breath - *Respiratory Denies chest congestion, Denies shortness of breath - *Gastrointestinal Reports abdominal pain, Denies pain with swallowing - *Genitourinary Reports difficulty urinating, Reports painful urination - *Musculoskeletal Reports muscle weakness, Denies joint pain - Integumentary/Breasts Denies change in skin color, Denies wounds - *Neurologic Denies localized weakness - Psychiatric Denies thoughts of hurting/killing others, Denies thoughts of hurting/killing yourself - Endocrine Reports increased urination, Denies cold intolerance, Denies heat intolerance - Hematologic/Lymphatic Denies easy bleeding - Allergic/Immunologic Denies lip swelling, Denies tongue swelling Meds Home Medications Medication Instructions Recorded Confirmed Type insulin human U-100 NPH-regulr 50 unit SQ BID 30 Days #30 ml 07/02/19 08/31/19 Rx 70-30 mix 100 unit/mL subcutaneous susp cholecalciferol (vitamin D3) 25 1,000 unit PO DAILY #90 cap 08/13/19 08/31/19 Rx mcg (1,000
--- NOTE | 2019-09-01 09:12 | HMH.PTEV ---
Physical Therapy Evaluation Rehab PT IP Evaluation Start: 08/31/19 19:45 Freq: ONCE Status: Active Protocol: Document 09/01/19 09:08 MERARINicoleCAMMIE (Rec: 09/01/19 09:12 PHOROSELIA [id number]) Subjective/History History History 73 yowf adm to [facility] with UTI and generalized weakness. She reports she lives at home with daughter and 3 steps to enter the home. Uses a cane for ambulation at baseline. Subjective Subjective Pt reports feeling tired, but otherwise no c/o this am. Rehab PT IP Eval Objective Appearance Patient Behavior Appropriate Patient Orientation Person,Place,Time Difficulty following instructions none Speech Pattern Clear Ambulation Patient Able to Ambulate Yes Ambulation Observation IP General Gait Pattern Observation Shuffling Step Ambulation Distance (feet) 20 Ambulation Assistive Device None Ambulation Ability Supervision/Stand by Balance Ability to Arise Able, uses arms to help Sitting Balance Steady, safe Standing Balance Steady, wide stance Dynamic Sitting Balance Ability Good Dynamic Standing Balance Ability Good Transfers Bed Transfer Ability Supervision/Stand by Chair Transfer Ability Supervision/Stand by Sit to Stand Bed Transfer Ability Supervision/Stand by Sit to Stand Chair Transfer Ability Supervision/Stand by ROM All Extremities PT ROM Status WFL MMT All Extremities PT MMT WFL Rehab PT IP prob,goals,plan Problems Date of Evaluation: 09/01/19 Discharge Plan PT Discharge Plan Pt appears to be at baseline for all mobility and ambulation at this time. No inpatient therapy needs currently. G -code Required No Eval Complexity Eval Charge Codes 26742 - Moderate Complexity PHYSICIAN CERTIFICATION: I certify the specified therapy services for Adriana Ray are required, authorized, and reviewed every 30 days.
--- NOTE | 2019-09-01 09:16 | HMH.PHAINT ---
MEDICATION RECONCILIATION COMPLETED USING EXTERNAL FILL HISTORY AND PHARMACY.
--- NOTE | 2019-09-01 09:20 | HMH.OTEV ---
OT Inpatient Evaluation Rehab OT IP Evaluation Start: 08/31/19 19:45 Freq: ONCE Status: Complete Protocol: Document 09/01/19 09:16 CAROLE (Rec: 09/01/19 09:19 [facility] [id number]) Rehab OT IP Assessment Subjective History Pt oriented x 3 on arrival. Pt agreeable to engage in therapy evaluation. Pt reports prior to being hospitalized she lived at home with her daughter. Pt explained she was independent with all ADL's such as feeding , eating, and bathing. Pt's daughter did do most errands such as grocery shopping and bill paying. However, pt was able to do some cooking of small meals and cleaning. Pt did use a cane during ambulation for safety; pt has 3 steps to get into her house, but the house is all one floor. Pt's daughter is home majority of the time with her. Subjective I think I am better than I was. Objective Patient Orientation Person,Place,Birthday Upper Extremity Gross ROM WFL Bed Mobility bed mobility-scooting,bed mobility - supine/sit,bed mobility - rolling Assist Level Supervision/Stand by Transfer Training Sit/Stand Transfer Assist Level Supervision/Stand by Chair Transfer Ability Supervision/Stand by Chair Transfer Technique Sit to/from Ambulatory Chair Transfer Assistive Devices None Rehab OT IP prob,goals,plan Problems Date of Evaluation: 09/01/19 Rehab Potential Rehab Potential Innapropriate for Skilled Therapy Discharge Plan OT Discharge Plan Pt appears to be at her baseline at this time. Pt is safe to return home with her daughter once medically stable . Eval Complexity Eval Charge Codes 03976 - Low Complexity G Codes G -code Required No PHYSICIAN CERTIFICATION: I certify the specified therapy services for Adriana Ray are required, authorized, and reviewed every 30 days.
[2019-09-01 11:02] LABS: POC Glucose,Bedside 175 (70-110)
--- NOTE | 2019-09-01 15:19 | PC.NURSE ---
Has been awake and up to chair most of shift. Remains on room air. Gee ly DC'd this AM, pt has voided clear drk yellow urine w/o difficulty since removal. PT & OT baljinder completed this AM. Pt ambulates w/ standby assistance. Is able to turn and reposition herself in the bed independently. Call tamika w/in reach. Will continue to monitor.
[2019-09-01 16:00] VITALS: BP 115/48; PULSE 79; TEMP 36.1; O2SAT 95
[2019-09-01 16:59] LABS: POC Glucose,Bedside 163 (70-110)
--- NOTE | 2019-09-01 19:07 | PC.NURSE ---
report given to woody
[2019-09-01 21:06] LABS: POC Glucose,Bedside 227 (70-110)
[2019-09-02 04:00] VITALS: BP 125/65; PULSE 96; RESP 20; TEMP 37.1; O2SAT 92
[2019-09-02 05:00] VITALS: BMI 34.3
[2019-09-02 06:20] LABS: POC Glucose,Bedside 204 (70-110)
[2019-09-02 06:23] LABS: Basophils % 0.1 % (0.1-2.0); Eosinophils # 0.1 K/mm3 (0.0-0.4); Eosinophils % 0.6 % (0.1-12.0); Hematocrit 34.4 % (37.0-47.0); Hemoglobin 11.3 g/dL (12.2-16.2); Lymphocytes # 0.9 K/mm3 (0.7-4.5); Lymphocytes % 11.1 % (10-50); Mean Corpuscular HGB Conc 32.9 g/dL (31.8-35.4); Mean Corpuscular Hemoglobin 28.3 pg (27.0-31.2); Mean Platelet Volume 9.3 fl (7.4-10.4); Monocytes # 0.4 K/mm3 (0.1-1.0); Monocytes % 4.9 % (1.7-9.3); Neutrophils % 83.3 % (37.0-80.0); Platelet Count 136 K/mm3 (142-424); Red Cell Distribution Width 13.8 % (11.5-17.5); White Blood Count 8.4 K/mm3 (4.8-10.8)
[2019-09-02 06:31] LABS: Chloride 101 mmol/L (98-107); Potassium 3.6 mmoL/L (3.5-5.1); Sodium 136 mmol/L (136-145)
[2019-09-02 06:34] LABS: Anion Gap 9.6 mEq/L (5-15); Blood Urea Nitrogen 31 mg/dl (7-17); Calcium 8.7 mg/dl (8.4-10.2); Carbon Dioxide 29 mmol/L (22.0-30.0); Creatinine Clearance Estimated 81 mL/min (50-200); Estimated Glomerular Filt Rate 55 ml/min (>60); GFR (African American) 66 ML/MIN (>60); Glucose 215 mg/dl (74-100)
[2019-09-02 08:00] VITALS: BP 126/75; PULSE 102; RESP 18; TEMP 37; O2SAT 91
--- NOTE | 2019-09-02 09:48 | HMH.DCSUM ---
General - General Admission date:: 08/31/19 Discharge date: 09/02/19 HPI HPI: She is lying in bed this morning, fluids infusing, and Flynn draining clear juan pablo urine. She states she still has some lower abdominal pain, but overall feels much better. 73-year-old female presents to the ED with dysuria for one week, urgency/freq, strong urine odor and a 1 day history of fever, shakes, and chills. She does report a history of UTIs. Also complains of generalized weakness and overall fatigue. She denies N/V/D or body aches. She denies any urinary surgery or kidney stones in the past. Treatment in the ED includes Invanz, levofloxacin, and IV fluids. BUN/creatinine in ED 33/1.2, potassium 3.5, sodium 140 and elevated white blood cell count 11.4. Upon presentation to the ED pulse 114, temperature 102.4, Urinalysis showing leukocyte esterase 1+ and preliminary urine culture showing gram-negative rods. COVID-19 PCR negative, RELL-COV-2 IgG negative, RELL-COV-2 IgM negative. . CXR 08/31/19: FINDINGS: HEART AND MEDIASTINAL STRUCTURES: Coronary artery calcification. Mild aortic valve calcification. LUNGS AND PLEURAL SPACES: COPD. 3 mm noncalcified nodule right lower lobe. No lobar consolidation or collapse. Mild atelectatic or fibrotic change within the left lung base BONY STRUCTURES: No acute bony abnormalities apparent. UPPER ABDOMEN: Fatty liver.. Mild enlargement of the adrenal glands on both sides. Small periportal lymph nodes are present ADDITIONAL FINDINGS: No other significant abnormalities. IMPRESSION: No acute finding Nonemergent findings as described above Dictated by: Mitchell Hospital Course Hospital Course: 73-year-old female patient admitted to hospital after dysuria, urgency/frequency, strong ordering urine order for 7 days and fever/chills for 1 day. She does have a history of UTIs and complained of generalized weakness. Treatment in the ED includes Invanz, levofloxacin, and IV fluids. BUN/creatinine in ED 33/1.2, potassium 3.5, sodium 140 and elevated white blood cell count 11.4. Upon presentation to the ED pulse 114, temperature 102.4, Urinalysis showing leukocyte esterase 1+ and preliminary urine culture showing gram-negative rods. COVID-19 PCR negative, RELL-COV-2 IgG negative, RELL-COV-2 IgM negative. . Urine culture reveals bacteria is E. coli 73-year-old female patient resting quietly in bed explained to her organism is identified as E. coli and she will be sent home with correct antibiotics, she has received Invanz while she has been inpatient she will need 5 days of p.o. cephalexin 3 times daily. She is agreeable to this and will follow-up with PCP next week. She reports she has been up walking in room and urinating throughout the night with no difficulties, denies urgency/frequency, dysuria, or odor. She has tolerated a diabetic diet and is received IV fluids during her stay WBCs on admission 11.4, now 8.4. BUN/creatinine on admission 33/1.2, now 31/1.0. Objective Vital signs: Temp Pulse Resp BP Pulse Ox 98.6 F 102 H 18 126/75 91 L 09/02/19 08:00 09/02/19 08:00 09/02/19 08:00 09/02/19 08:00 09/02/19 08:00 no acute distress - *Routine HEENT Exam Head: Present: normocephalic ENT: Present: mucous membranes moist - *Routine Neck Exam Present: trachea midline. Absent: JVD, tracheal deviation - *Routine Respiratory Exam Present: CTA bilaterally. Absent: accessory muscle use - *Routine Cardiovascular Exam Present: RRR - *Routine Abdominal Exam Present: soft, normoactive bowel sounds. Absent: tenderness, firm - *Routine Extremities Exam Present: full ROM, pulses intact. Absent: calf tenderness - *Routine Skin Exam Present: intact, warm - *Routine Neurological Exam Present: alert, oriented X3. Absent: altered mental status - Routine Psychiatric Exam Present: normal affect, normal thought process Results Labs on day of discharge: Labs
--- NOTE | 2019-09-02 11:26 | HMH.PHAINT ---
PATIENT WAS COUNSELED ON NEW MEDICATION: CEPHALEXIN. THE PATIENT IS TO STOP LEVOFLOXACIN, BUT CONTINUE ALL HOME MEDICATIONS. THE PATIENT DID NOT HAVE ANY QUESTIONS.
[2019-09-02 11:54] LABS: POC Glucose,Bedside 224 (70-110)
== END 2019-09-02 12:28 | disposition home or self-care (01) ==
LOC: ER 17:33 → 2ND 21:47
PROVIDERS: Nurse Practitioner Family; Admitting Provider Internal Medicine Adolescent Medicine; Emergency Provider Family Medicine; PCP Emergency Medicine; Visit Provider Emergency Medicine
DX: N39.0 Urinary tract infection, site not specified (principal); E11.9 Type 2 diabetes mellitus without complications; Z79.4 Long term (current) use of insulin; I10 Essential (primary) hypertension; E78.5 Hyperlipidemia, unspecified; J44.9 Chronic obstructive pulmonary disease, unspecified; E03.9 Hypothyroidism, unspecified; R65.10 Systemic inflammatory response syndrome (SIRS) of non-infectious origin without acute organ dysfunction; Z87.891 Personal history of nicotine dependence; B96.20 Unspecified Escherichia coli [E. coli] as the cause of diseases classified elsewhere
CPT/HCPCS: 36415; 71250; 80048; 80053; 81001; 82962; 83605; 85007; 85025; 86328; 87040; 87086; 87088; 87186; 87581; 87633; 87798; 96365; 97162; 97165; 99284; 99285; G0378; J1335; J1956

== ENCOUNTER → 2020-01-26 14:42 | Outpatient (CLI) | payer MEDICARE, MEDICAID, SELFPAY ==
[2020-01-26 15:46] LABS: Alanine Aminotransferase 19 U/L (12-78); Albumin Level 4.3 g/dl (3.5-5.0); Albumin/Globulin Ratio 1.3 (1.1-1.8); Alkaline Phosphatase 98 U/L (38-126); Anion Gap 3.2 mEq/L (5-15); Aspartate Amino Transferase 25 U/L (14-36); Bilirubin,Total 0.5 mg/dl (0.2-1.3); Blood Urea Nitrogen 14 mg/dl (7-17); Calcium 9.5 mg/dl (8.4-10.2); Carbon Dioxide 30 mmol/L (22.0-30.0); Chloride 99 mmol/L (98-107); Chol/HDL Ratio 5.2 (1-3.5); Cholesterol 229 mg/dl (140-200); Estimated Glomerular Filt Rate 71 ml/min (>60); GFR (African American) 85 ML/MIN (>60); Globulin 3.2 g/dL (1.3-3.2); Glucose 246 mg/dl (74-100); HDL Cholesterol 44 mg/dl (40-60); Potassium 4.2 mmoL/L (3.5-5.1); Sodium 128 mmol/L (136-145); Total Protein,Serum 7.5 g/dl (6.3-8.2)
[2020-01-26 15:56] LABS: Basophils % 0.3 % (0.1-2.0); Eosinophils # 0.1 K/mm3 (0.0-0.4); Eosinophils % 1.9 % (0.1-12.0); Hematocrit 43.8 % (37.0-47.0); Hemoglobin 14.1 g/dL (12.2-16.2); Lymphocytes # 1.4 K/mm3 (0.7-4.5); Lymphocytes % 20.3 % (10-50); Mean Corpuscular HGB Conc 32.2 g/dL (31.8-35.4); Mean Corpuscular Hemoglobin 27.5 pg (27.0-31.2); Mean Corpuscular Volume 85.4 fl (81-99); Mean Platelet Volume 10.5 fl (7.4-10.4); Monocytes # 0.4 K/mm3 (0.1-1.0); Monocytes % 5.9 % (1.7-9.3); Neutrophils % 71.6 % (37.0-80.0); Platelet Count 207 K/mm3 (142-424); Red Blood Count 5.13 M/mm3 (4.20-5.40); Red Cell Distribution Width 13.9 % (11.5-17.5)
[2020-01-26 15:58] LABS: Direct LDL Cholesterol 110.16 mg/dL (100-129)
[2020-01-26 16:00] LABS: Triglycerides 416 mg/dl (30-150)
[2020-01-26 16:05] LABS: 25-OH Vitamin D, Total 17.9 ng/mL (30-100); Free T4 (Free Thyroxine) 1.22 ng/dl (0.78-2.19)
[2020-01-26 16:19] LABS: Thyroid Stimulating Hormone 2.19 uIU/mL (0.465-4.68)
[2020-01-26 17:12] LABS: Hemoglobin A1C 12.7 % (4.0-6.0)
[2020-01-26 17:16] LABS: Creatinine,Urine Random 248 mg/dL (Not Estab.); Microalbumin/Creatinine Ratio 453.2
== END ==
PROVIDERS: Visit Provider Emergency Medicine
DX: E11.9 Type 2 diabetes mellitus without complications (principal); N28.9 Disorder of kidney and ureter, unspecified; E55.9 Vitamin D deficiency, unspecified; Z79.4 Long term (current) use of insulin
CPT/HCPCS: 80053; 80061; 82043; 82306; 82570; 83036; 84439; 84443; 85025; 87086; 87088; 87186

== ENCOUNTER → 2020-02-25 08:56 | Outpatient (CLI) | payer MEDICARE, MEDICAID, SELFPAY ==
[2020-02-25 09:00] LABS: Microscopic, Urine URINE MICROSCOPIC (MICROSCOPIC)
[2020-02-25 09:34] LABS: Appearance,Urine CLEAR (Clear); Bilirubin,Urine Negative (Negative); Blood, Urine Negative (Negative); Color,Urine YELLOW (Yellow); Glucose,Urine (UA) Negative (Negative); Ketones,Urine Negative (Negative); Leukocyte Esterase,Urine Negative (Negative); Nitrate,Urine Negative (Negative); PH,Urine 5.5 (5.0-8.5); Protein,Urine Negative (Negative); Urobilinogen,Urine 0.2 EU/dl (0.2)
[2020-02-25 09:45] LABS: Creatinine,Urine Random 90 mg/dL (Not Estab.)
[2020-02-25 09:54] LABS: Basophils # 0.1 K/mm3 (0-0.2); Basophils % 0.6 % (0.1-2.0); Eosinophils # 0.2 K/mm3 (0.0-0.4); Eosinophils % 2.1 % (0.1-12.0); Hemoglobin 13.2 g/dL (12.2-16.2); Lymphocytes # 1.9 K/mm3 (0.7-4.5); Lymphocytes % 22.1 % (10-50); Mean Corpuscular HGB Conc 31.5 g/dL (31.8-35.4); Mean Corpuscular Hemoglobin 26.4 pg (27.0-31.2); Mean Corpuscular Volume 83.7 fl (81-99); Mean Platelet Volume 8.9 fl (7.4-10.4); Monocytes # 0.5 K/mm3 (0.1-1.0); Monocytes % 5.9 % (1.7-9.3); Neutrophils # 5.9 K/mm3 (1.8-7.8); Neutrophils % 69.2 % (37.0-80.0); Platelet Count 228 K/mm3 (142-424); Red Blood Count 5.01 M/mm3 (4.20-5.40); Red Cell Distribution Width 14.8 % (11.5-17.5); White Blood Count 8.6 K/mm3 (4.8-10.8)
[2020-02-25 10:10] LABS: Squamous Epithelial Cell,Urine Occasional #/hpf (0-5)
[2020-02-25 10:15] LABS: Albumin Level 4.2 g/dl (3.5-5.0); Anion Gap 13.6 mEq/L (5-15); Blood Urea Nitrogen 20 mg/dl (7-17); Calcium 9.7 mg/dl (8.4-10.2); Carbon Dioxide 28 mmol/L (22.0-30.0); Chloride 101 mmol/L (98-107); Estimated Glomerular Filt Rate 49 ml/min (>60); GFR (African American) 59 ML/MIN (>60); Glucose 181 mg/dl (74-100); Phosphorous 3.8 mg/dl (2.5-4.5); Potassium 4.6 mmoL/L (3.5-5.1); Sodium 138 mmol/L (136-145)
[2020-02-25 10:28] LABS: Intact Parathyroid Hormone 82.2 pg/mL (7.5-53.5)
[2020-02-25 10:32] LABS: 25-OH Vitamin D, Total 36.8 ng/mL (30-100)
== END ==
PROVIDERS: Visit Provider Internal Medicine Nephrology
DX: N18.30 Chronic kidney disease, stage 3 unspecified (principal)
CPT/HCPCS: 36415; 80069; 81001; 82306; 82570; 83970; 84155; 85025

== ENCOUNTER → 2020-06-20 08:19 | Outpatient (CLI) | payer MEDICARE, MEDICAID, SELFPAY ==
--- NOTE | 2020-06-20 08:30 | US_ITS ---
PROCEDURE: US KIDNEY CLINICAL INDICATION: CKD STAGE 3 COMPARISON: No exams were available for comparison FINDINGS: Kidneys have an unremarkable appearance. No hydronephrosis mass or perinephric fluid collection. Normal echogenicity. The right kidney is 12 x 5 by 5 cm and left kidney is 11 x 4x 4 cm. IMPRESSION: Unremarkable bilateral renal ultrasound Dictated by: Radames Mitchell MD 06/21/2020 06:06 Radames Mitchell MD in [place] 06/21/2020 06:06
--- NOTE | 2020-06-20 08:31 | XR_ITS ---
PROCEDURE: XR DEXA AXIAL SKELETON CLINICAL HISTORY: POST MENOPAUSAL COMPARISON: No exams were available for comparison FINDINGS: The right hip BMD is 0.838 with a T-score of -0.1. The left hip BMD is 0.716 with a T-score of -1.2. The lumbar spine BMD is 1.033 with a T-score of -0.1. IMPRESSION: This patient is considered osteopenic according to the World Health Organization criteria. Bone density is between 10 and 25 percent below young normal. Fracture risk is moderate. Treatment is advised. Based on these results a follow-up exam is recommended in 2 year. Dictated by: Radames Mitchell MD 06/20/2020 19:12 Radames Mitchell MD in [place] 06/21/2020 06:25
== END ==
PROVIDERS: PCP Emergency Medicine; Visit Provider Internal Medicine Nephrology
DX: N18.30 Chronic kidney disease, stage 3 unspecified (principal); Z78.0 Asymptomatic menopausal state
CPT/HCPCS: 76770; 77080

== ENCOUNTER 2020-08-07 16:11 | Emergency (ER) | payer MEDICARE, MEDICAID, SELFPAY ==
[2020-08-07 16:12] VITALS: BP 153/53; PULSE 94; RESP 16; TEMP 36.8; O2SAT 96; BMI 36.8
--- NOTE | 2020-08-07 16:34 | XR_ITS ---
PROCEDURE INFORMATION: Exam: XR Chest Exam date and time: 08/07/2020 4:34 PM Age: 74 years old Clinical indication: Cough and other: Congestion; Additional info: Productive cough TECHNIQUE: Imaging protocol: XR of the chest. Views: 1 view. COMPARISON: CT CHEST WO CON 08/31/2019 4:39 PM FINDINGS: Lungs: Limited bibasilar atelectasis with possible left basilar minimal consolidation and effusion. Pleural spaces: Unremarkable. No pleural effusion. No pneumothorax. Heart/Mediastinum: Unremarkable. No cardiomegaly. Bones/joints: Unremarkable. IMPRESSION: Limited bibasilar atelectasis with possible left basilar minimal consolidation and effusion.
--- NOTE | 2020-08-07 16:41 | HMH.EDGENADL ---
ED Disposition Clinical Impression: Urinary tract infection Qualifiers: Urinary tract infection type: site unspecified Hematuria presence: without hematuria Qualified Code(s): N39.0 - Urinary tract infection, site not specified Upper respiratory infection Qualifiers: URI type: unspecified URI Qualified Code(s): J06.9 - Acute upper respiratory infection, unspecified Disposition: Home, Self-Care Condition on Discharge: Good Instructions: DI for Urinary Tract Infection (UTI), DI for Viral Upper Respiratory Infection -- Adult Additional Instructions: Additional instructions for URINARY TRACT INFECTION: Take antibiotic as prescribed. See your physician in 2-3 days for follow up and culture results. Return immediately if you have an uncontrollable fever greater than 102 degrees, severe back or abdominal pain, inability to urinate, or repetitive vomiting. Quarantine yourself until you obtain your COVID-19 test result. You will be called with the result. Prescriptions: levoFLOXacin [Levaquin 500mg tab] 500 mg PO DAILY #7 tab Transmission Status: Pending to [facility] Referrals: Antonino Jeffers MD [Primary Care Provider] - - Critical Care Critical Care Time: No Attestation: On 08/07/20, the high probability of a clinically significant, sudden or life threatening deterioration of the following system(s) required my full and direct attention, intervention and personal management. The time I documented below is in addition to time spent performing reported procedures but includes the following listed in this critical care notation. Medical Decision Making - Alfa Inquiry Pt receiving controlled substance: No Vital Signs: 08/07/20 16:12 08/07/20 18:24 Temperature 98.2 F Temperature Source Oral Pulse Rate 89 Pulse Rate [Right] 94 H Respiratory Rate 16 Blood Pressure 121/55 L Blood Pressure [Right Arm] 153/53 H Blood Pressure Mean [Right Arm] 86 Blood Pressure Source Automatic Cuff Blood Pressure Position Sitting 02 Sat by Pulse Oximetry 96 96 Oxygen Delivery Method Room Air Room Air - Lab Data Lab Results 08/07/20 17:12: WBC 8.2, RBC 4.39, Hgb 11.8 L, Hct 35.7 L, MCV 81.2, MCH 26.8 L, MCHC 33.0, RDW 14.8, Plt Count 195, MPV 9.0, Neut % (Auto) 69.0, Lymph % (Auto) 23.0, [place] % (Auto) 5.5, Eos % (Auto) 1.9, Baso % (Auto) 0.5, Neut # (Auto) 5.6, Lymph # (Auto) 1.9, [place] # (Auto) 0.5, Eos # (Auto) 0.2, Baso # (Auto) 0.0 08/07/20 17:12: Sodium 139, Potassium 4.4, Chloride 105, Carbon Dioxide 27, Anion Gap 11.4, BUN 25 H, Creatinine 1.30 H, Estimated Creat Clear 64, Estimated GFR 40 L, Est GFR ( Amer) 49 L, Glucose 249 H, Calcium 8.2 L, Total Bilirubin 0.3, AST 24, ALT 21, Alkaline Phosphatase 74, Total Protein 7.3, Albumin 4.1, Globulin 3.2, Albumin/Globulin Ratio 1.3 08/07/20 17:27: Urine Color Yellow, Urine Appearance Clear, Urine pH 5.5, Ur Specific [place] >= 1.030, Urine Protein Trace, Urine Glucose (UA) 1+, Urine Ketones Negative, Urine Blood Negative, Urine Nitrate Positive, Urine Bilirubin Negative, Urine Urobilinogen 0.2, Ur Leukocyte Esterase Negative, Urine RBC None, Urine WBC 10-20, Ur Squamous Epith Cells 5-10, Urine Bacteria 2+ 08/07/20 17:33: Group A Strep Rapid Negative Result diagrams: 08/07/20 17:12 08/07/20 17:12 Orders (Tests/Meds): ORDERS Category Date Time Status Full Resp Panel w/COVID ([facility]) Routine Lab 08/07/20 17:14 Received Strep Screen Confirmation Stat Micro 08/07/20 17:33 Received Urine Culture Stat Micro 08/07/20 17:27 Received - Radiology Data #1 Image(s): Chest Image Reviewed: Yes I reviewed the patient's radiology image, Yes I have reviewed radiologist's interpretation PROCEDURE INFORMATION: Exam: XR Chest Exam date and time: 08/07/2020 4:34 PM Age: 74 years old Clinical indication: Cough and other: Congestion; Additional info: Productive cough TECHNIQUE: Imaging protocol: XR of the chest. Views: 1 view.
[2020-08-07 17:23] LABS: Adenovirus,PCR Not Detected (NotDetected); Bordetella Pertussis Not Detected (NotDetected); Chlamydophila Pneumoniae, PCR Not Detected (NotDetected); Coronavirus 19, PCR Not Detected (NotDetected); Coronavirus 229E Not Detected (NotDetected); Coronavirus NL63 Not Detected (NotDetected); Coronavirus OC43 Not Detected (NotDetected); Coronovirus HKU1,PCR Not Detected (NotDetected); Human Metapneumovirus Not Detected (NotDetected); Influenza A, PCR Not Detected (NotDetected); Influenza AH1, 2009 Not Detected (NotDetected); Influenza AH1, PCR Not Detected (NotDetected); Influenza AH3,PCR Not Detected (NotDetected); Influenza B, PCR Not Detected (NotDetected); Mycoplasma Pneumoniae, PCR Not Detected (NotDetected); Parainfluenza 1, PCR Not Detected (NotDetected); Parainfluenza 2, PCR Not Detected (NotDetected); Parainfluenza 3, PCR Not Detected (NotDetected); Parainfluenza 4, PCR Not Detected (NotDetected); Respiratory Syncytial Virus Not Detected (NotDetected); Rhinovirus/Enterovirus Not Detected (NotDetected)
[2020-08-07 17:26] LABS: Basophils % 0.5 % (0.1-2.0); Eosinophils # 0.2 K/mm3 (0.0-0.4); Eosinophils % 1.9 % (0.1-12.0); Hematocrit 35.7 % (37.0-47.0); Hemoglobin 11.8 g/dL (12.2-16.2); Lymphocytes # 1.9 K/mm3 (0.7-4.5); Mean Corpuscular Hemoglobin 26.8 pg (27.0-31.2); Mean Corpuscular Volume 81.2 fl (81-99); Monocytes # 0.5 K/mm3 (0.1-1.0); Monocytes % 5.5 % (1.7-9.3); Neutrophils # 5.6 K/mm3 (1.8-7.8); Platelet Count 195 K/mm3 (142-424); Red Blood Count 4.39 M/mm3 (4.20-5.40); Red Cell Distribution Width 14.8 % (11.5-17.5); White Blood Count 8.2 K/mm3 (4.8-10.8)
[2020-08-07 17:33] LABS: Microscopic, Urine URINE MICROSCOPIC (MICROSCOPIC)
[2020-08-07 17:36] LABS: Alanine Aminotransferase 21 U/L (12-78); Albumin Level 4.1 g/dl (3.5-5.0); Albumin/Globulin Ratio 1.3 (1.1-1.8); Alkaline Phosphatase 74 U/L (38-126); Anion Gap 11.4 mEq/L (5-15); Aspartate Amino Transferase 24 U/L (14-36); Bilirubin,Total 0.3 mg/dl (0.2-1.3); Blood Urea Nitrogen 25 mg/dl (7-17); Calcium 8.2 mg/dl (8.4-10.2); Carbon Dioxide 27 mmol/L (22.0-30.0); Chloride 105 mmol/L (98-107); Creatinine Clearance Estimated 64 mL/min (50-200); Estimated Glomerular Filt Rate 40 ml/min (>60); GFR (African American) 49 ML/MIN (>60); Globulin 3.2 g/dL (1.3-3.2); Glucose 249 mg/dl (74-100); Potassium 4.4 mmoL/L (3.5-5.1); Sodium 139 mmol/L (136-145); Total Protein,Serum 7.3 g/dl (6.3-8.2)
[2020-08-07 17:36] LABS: Appearance,Urine CLEAR (Clear); Bilirubin,Urine Negative (Negative); Blood, Urine Negative (Negative); Color,Urine YELLOW (Yellow); Glucose,Urine (UA) 1+ (Negative); Ketones,Urine Negative (Negative); Leukocyte Esterase,Urine Negative (Negative); Nitrate,Urine POSITIVE (Negative); PH,Urine 5.5 (5.0-8.5); Protein,Urine TRACE (Negative); Specific Gravity, Urine >= 1.030 (1.005-1.030); Urobilinogen,Urine 0.2 EU/dl (0.2)
[2020-08-07 17:41] LABS: Bacteria,Urine 2+ /lpf
[2020-08-07 17:46] LABS: Strep Scrn Group A (Rapid) Negative (Negative)
[2020-08-07 18:24] VITALS: BP 121/55; PULSE 89; O2SAT 96
[2020-08-07 19:21] VITALS: BP 120/51; PULSE 81; RESP 16; TEMP 36.8; O2SAT 96
== END 2020-08-07 19:25 | disposition home or self-care (01) ==
PROVIDERS: Emergency Provider Emergency Medicine; PCP Emergency Medicine
DX: N30.00 Acute cystitis without hematuria (principal); B96.20 Unspecified Escherichia coli [E. coli] as the cause of diseases classified elsewhere; J06.9 Acute upper respiratory infection, unspecified; E11.9 Type 2 diabetes mellitus without complications; J44.9 Chronic obstructive pulmonary disease, unspecified; I25.10 Atherosclerotic heart disease of native coronary artery without angina pectoris; Z87.891 Personal history of nicotine dependence; Z79.899 Other long term (current) drug therapy
CPT/HCPCS: 71045; 80053; 81001; 85025; 87086; 87186; 87430; 87581; 87633; 87798; 99283

== ENCOUNTER → 2020-09-02 17:36 | Outpatient (CLI) | payer MEDICARE, MEDICAID, SELFPAY ==
[2020-09-02 18:30] LABS: Basophils # 0.1 K/mm3 (0-0.2); Basophils % 0.6 % (0.1-2.0); Eosinophils # 0.1 K/mm3 (0.0-0.4); Eosinophils % 1.4 % (0.1-12.0); Hematocrit 38.4 % (37.0-47.0); Hemoglobin 12.3 g/dL (12.2-16.2); Lymphocytes # 1.7 K/mm3 (0.7-4.5); Lymphocytes % 20.9 % (10-50); Mean Corpuscular HGB Conc 32.1 g/dL (31.8-35.4); Mean Corpuscular Hemoglobin 26.4 pg (27.0-31.2); Mean Corpuscular Volume 82.3 fl (81-99); Mean Platelet Volume 9.4 fl (7.4-10.4); Monocytes # 0.4 K/mm3 (0.1-1.0); Monocytes % 4.8 % (1.7-9.3); Neutrophils # 5.8 K/mm3 (1.8-7.8); Neutrophils % 72.3 % (37.0-80.0); Platelet Count 195 K/mm3 (142-424); Red Blood Count 4.67 M/mm3 (4.20-5.40); Red Cell Distribution Width 14.4 % (11.5-17.5)
[2020-09-02 18:34] LABS: Alanine Aminotransferase 16 U/L (12-78); Albumin/Globulin Ratio 1.3 (1.1-1.8); Alkaline Phosphatase 90 U/L (38-126); Aspartate Amino Transferase 18 U/L (14-36); Bilirubin,Total 0.3 mg/dl (0.2-1.3); Blood Urea Nitrogen 28 mg/dl (7-17); Calcium 9.7 mg/dl (8.4-10.2); Carbon Dioxide 27 mmol/L (22.0-30.0); Chloride 101 mmol/L (98-107); Chol/HDL Ratio 4.8 (1-3.5); Cholesterol 193 mg/dl (140-200); Estimated Glomerular Filt Rate 49 ml/min (>60); GFR (African American) 59 ML/MIN (>60); Globulin 3.2 g/dL (1.3-3.2); Glucose 388 mg/dl (74-100); HDL Cholesterol 40 mg/dl (40-60); Sodium 138 mmol/L (136-145); Total Protein,Serum 7.2 g/dl (6.3-8.2); Triglycerides 394 mg/dl (30-150); VLDL Cholesterol 79 mg/dL (0-40)
[2020-09-02 18:46] LABS: Direct LDL Cholesterol 89.82 mg/dL (100-129); Intact Parathyroid Hormone 37.5 pg/mL (7.5-53.5)
[2020-09-02 18:51] LABS: T4 (Thyroxine) 9.2 ug/dl (5.53-11.0)
[2020-09-02 19:05] LABS: Thyroid Stimulating Hormone 1.91 uIU/mL (0.465-4.68)
[2020-09-02 19:09] LABS: Hemoglobin A1C 9.4 % (4.0-6.0)
[2020-09-02 19:11] LABS: Creatinine,Urine Random 77 mg/dL (Not Estab.)
[2020-09-02 19:13] LABS: Microalbumin/Creatinine Ratio 87.2
== END ==
PROVIDERS: Visit Provider Family Medicine
DX: E11.9 Type 2 diabetes mellitus without complications (principal); I10 Essential (primary) hypertension; R79.89 Other specified abnormal findings of blood chemistry; M54.5 Low back pain; Z79.4 Long term (current) use of insulin
CPT/HCPCS: 80053; 80061; 82043; 82570; 83036; 83970; 84436; 84443; 85025

== ENCOUNTER 2021-03-01 11:18 | Emergency (ER) | payer MEDICARE, MEDICAID, SELFPAY ==
[2021-03-01 11:19] VITALS: BP 168/77; PULSE 122; RESP 22; TEMP 36.5; O2SAT 95; BMI 43.4
--- NOTE | 2021-03-01 11:38 | XR_ITS ---
FINAL REPORT CLINICAL HISTORY: SOA, previous smoker FINDINGS: A single view of the chest was obtained. The heart is normal in size. The mediastinum is unremarkable. There is scarring or atelectasis at the right lung base. There is no pleural effusion. There is no pneumothorax. There is no acute osseous abnormality. IMPRESSION: Scarring or atelectasis at the right lung base. Reviewed, Interpreted and Dictated by Gurjit Richey MD Transcribed by Ana Allen Authenticated by Gurjit Richey MD on 03/01/2021 12:17:[address] [facility]
--- NOTE | 2021-03-01 11:41 | ECG_ITS ---
APPROVED REPORT Exam: Resting ECG HR:112 bpm ECG Measurements Heart Rate [address] 158 P 50 QRSd 138 QRS -2 QT 380 T 119 QTc 518 Conclusion Sinus tachycardia with premature supraventricular complexes with occasional premature ventricular complexes Left bundle branch block Abnormal ECG Electronically signed by : Richi Palomino MD 03/03/2021 14:32:08
[2021-03-01 12:08] LABS: Basophils # 0.1 K/mm3 (0-0.2); Basophils % 0.8 % (0.1-2.0); Eosinophils # 0.1 K/mm3 (0.0-0.4); Hematocrit 35.4 % (37.0-47.0); Hemoglobin 11.3 g/dL (12.2-16.2); Lymphocytes # 1.4 K/mm3 (0.7-4.5); Lymphocytes % 18.8 % (10-50); Mean Corpuscular HGB Conc 31.9 g/dL (31.8-35.4); Mean Corpuscular Hemoglobin 25.3 pg (27.0-31.2); Mean Corpuscular Volume 79.5 fl (81-99); Mean Platelet Volume 9.8 fl (7.4-10.4); Monocytes # 0.4 K/mm3 (0.1-1.0); Monocytes % 5.5 % (1.7-9.3); Neutrophils # 5.3 K/mm3 (1.8-7.8); Neutrophils % 72.8 % (37.0-80.0); Platelet Count 213 K/mm3 (142-424); Red Blood Count 4.45 M/mm3 (4.20-5.40); Red Cell Distribution Width 16.1 % (11.5-17.5); White Blood Count 7.2 K/mm3 (4.8-10.8)
[2021-03-01 12:10] LABS: Chloride 102 mmol/L (98-107); Sodium 139 mmol/L (136-145)
[2021-03-01 12:12] LABS: Blood Urea Nitrogen 24 mg/dl (7-17); Creatinine Clearance Estimated 38 mL/min (50-200); Estimated Glomerular Filt Rate 49 ml/min (>60); GFR (African American) 59 ML/MIN (>60)
[2021-03-01 12:13] LABS: Alanine Aminotransferase 22 U/L (12-78); Albumin/Globulin Ratio 1.2 (1.1-1.8); Alkaline Phosphatase 74 U/L (38-126); Aspartate Amino Transferase 26 U/L (14-36); Bilirubin,Total 0.2 mg/dl (0.2-1.3); Calcium 8.8 mg/dl (8.4-10.2); Carbon Dioxide 27 mmol/L (22.0-30.0); Globulin 3.3 g/dL (1.3-3.2); Glucose 153 mg/dl (74-100); Total Protein,Serum 7.3 g/dl (6.3-8.2)
[2021-03-01 12:30] VITALS: BP 102/63; PULSE 109; RESP 16; O2SAT 97
[2021-03-01 12:36] LABS: Coronavirus 19, PCR Not Detected (NotDetected); Influenza A, PCR Not Detected (NotDetected); Influenza B, PCR Not Detected (NotDetected)
[2021-03-01 13:01] VITALS: BP 118/57; PULSE 103; RESP 16; O2SAT 97
--- NOTE | 2021-03-01 13:08 | HMH.EDGENADL ---
ED Disposition Clinical Impression: Acute exacerbation of chronic obstructive airways disease Disposition: Home, Self-Care Condition on Discharge: Good Instructions: DI for Chronic Obstructive Pulmonary Disease Prescriptions: Albuterol Sulfate [Albuterol Sulfate Hfa] 2 puff IH Q4HP PRN #1 each PRN Reason: Wheezing Transmission Status: Pending to [facility] Doxycycline Monohydrate [Doxycycline [place] 100mg Tab] 100 mg PO Q12 #20 tab Transmission Status: Pending to [facility] methylPREDNISolone [Medrol 4mg tab] 4 mg PO DIRECTED #21 tab Transmission Status: Pending to [facility] Referrals: Antonino Jeffers MD [Primary Care Provider] - - Critical Care Critical Care Time: No Attestation: On 03/01/21, the high probability of a clinically significant, sudden or life threatening deterioration of the following system(s) required my full and direct attention, intervention and personal management. The time I documented below is in addition to time spent performing reported procedures but includes the following listed in this critical care notation. Medical Decision Making - Medical Records Medical records reviewed: Yes: I reviewed the patient's medical records. - Alfa Inquiry Pt receiving controlled substance: No Vital Signs: 03/01/21 11:19 03/01/21 12:30 03/01/21 13:01 Temperature 97.7 F Temperature Source Oral Pulse Rate 109 H 103 H Pulse Rate [Right Radial] 122 H Respiratory Rate 22 16 16 Blood Pressure 102/63 L 118/57 L Blood Pressure [Right Arm] 168/77 H Blood Pressure Mean 71 76 Blood Pressure Mean [Right Arm] 107 Blood Pressure Source [Right Arm] Automatic Cuff Blood Pressure Position [Right Arm] Sitting 02 Sat by Pulse Oximetry 95 97 97 Oxygen Delivery Method Room Air Oxygen Flow Rate (LPM) 03/01/21 13:30 Temperature Temperature Source Pulse Rate 99 H Pulse Rate [Right Radial] Respiratory Rate 19 Blood Pressure 107/54 L Blood Pressure [Right Arm] Blood Pressure Mean 71 Blood Pressure Mean [Right Arm] Blood Pressure Source [Right Arm] Blood Pressure Position [Right Arm] 02 Sat by Pulse Oximetry 99 Oxygen Delivery Method Nasal Cannula Oxygen Flow Rate (LPM) 2 - Lab Data Lab Results 03/01/21 11:55: WBC 7.2, RBC 4.45, Hgb 11.3 L, Hct 35.4 L, MCV 79.5 L, MCH 25.3 L, MCHC 31.9, RDW 16.1, Plt Count 213, MPV 9.8, Neut % (Auto) 72.8, Lymph % (Auto) 18.8, [place] % (Auto) 5.5, Eos % (Auto) 2.0, Baso % (Auto) 0.8, Neut # (Auto) 5.3, Lymph # (Auto) 1.4, [place] # (Auto) 0.4, Eos # (Auto) 0.1, Baso # (Auto) 0.1 03/01/21 11:55: Sodium 139, Potassium 4.0, Chloride 102, Carbon Dioxide 27, Anion Gap 14.0, BUN 24 H, Creatinine 1.10 H, Estimated Creat Clear 38, Estimated GFR 49 L, Est GFR ( Amer) 59, Glucose 153 H, Calcium 8.8, Total Bilirubin 0.2, AST 26, ALT 22, Alkaline Phosphatase 74, Total Protein 7.3, Albumin 4.0, Globulin 3.3 H, Albumin/Globulin Ratio 1.2 03/01/21 12:25: SARS-CoV-2 (PCR) Not detected, Influenza A Untype (PCR) Not detected, Influenza Type B (PCR) Not detected Result diagrams: 03/01/21 11:55 03/01/21 11:55 Orders (Tests/Meds): ED MEDICATIONS Discontinued Medications Generic Name Dose Route Start Last Admin Trade Name Freq PRN Reason Stop Dose Admin Albuterol/Ipratropium 3 ml 03/01/21 11:46 Ipratropium/Albuterol 3 Ml Neb 03/01/21 11:47 ONCE ONE Methylprednisolone Sodium Succinate 125 mg 03/01/21 11:46 03/01/21 12:12 Methylprednisolone Sod Succ 125mg Vial IV 03/01/21 11:47 125 mg ONCE ONE Administration - Radiology Data #1 Image(s): Chest Image Reviewed: Yes I reviewed the patient's radiology results, Yes I reviewed the patient's radiology image, Yes I have reviewed radiologist's interpretation IMPRESSION: Scarring or atelectasis at the right lung base. - ECG Data Tracing #1 I reviewed this ECG and interpreted as documented below: Tachycardic rate of 112 bpm,
[2021-03-01 13:30] VITALS: BP 107/54; PULSE 99; RESP 19; O2SAT 99
[2021-03-01 14:00] VITALS: BP 126/61; PULSE 98; RESP 16; O2SAT 99
[2021-03-01 14:37] VITALS: BP 126/61; PULSE 100; RESP 20; TEMP 36.8; O2SAT 100
== END 2021-03-01 14:39 | disposition home or self-care (01) ==
PROVIDERS: Emergency Provider Emergency Medicine; PCP Emergency Medicine
DX: J44.1 Chronic obstructive pulmonary disease with (acute) exacerbation (principal); I10 Essential (primary) hypertension; E78.5 Hyperlipidemia, unspecified; E11.9 Type 2 diabetes mellitus without complications; F17.210 Nicotine dependence, cigarettes, uncomplicated; Z20.822 Contact with and (suspected) exposure to COVID-19
CPT/HCPCS: 71045; 80053; 85025; 93005; 96374; 99283; C9803; U0003; U0005

== ENCOUNTER → 2021-04-05 16:51 | Outpatient (CLI) | payer MEDICARE, MEDICAID, SELFPAY | PROVIDERS: Visit Provider Nurse Practitioner | DX: U07.1 COVID-19 (principal) | CPT/HCPCS: C9803; U0003; U0005 ==

== ENCOUNTER → 2021-05-02 14:08 | Outpatient (CLI) | payer MEDICARE, MEDICAID, SELFPAY ==
--- NOTE | 2021-05-02 14:09 | US_ITS ---
FINAL REPORT CLINICAL HISTORY: elevated pth FINDINGS: THYROID ULTRASOUND Sonographic images of the thyroid was obtained. The right lobe of the thyroid measures 3.3 x 1.6 x 0.8 cm. The left lobe of the thyroid measures 4.2 x 1.8 x 1.5 cm. The isthmus measures 6 mm. There are nodules bilaterally: 1. 5 x 3 x 3 mm nodule in the upper pole of the right lobe which is solid and hypoechoic, TI-RADS 4. 2. 8 x 7 x 5 mm nodule in the lower pole of the right lobe which is solid and hypoechoic, TI-RADS 4. 3. 13 x 11 x 6 mm nodule in the left lobe which is solid and isoechoic, TI-RADS 3. IMPRESSION: Small nodules as described. Reviewed, Interpreted and Dictated by Spencer Joshi III, MD Transcribed by Peg Orellana Authenticated by Spencer Joshi III, MD on 05/02/2021 04:14:41 PM [facility]
[2021-05-02 17:45] LABS: Alanine Aminotransferase 15 U/L (12-78); Albumin Level 3.9 g/dl (3.5-5.0); Albumin/Globulin Ratio 1.4 (1.1-1.8); Alkaline Phosphatase 65 U/L (38-126); Anion Gap 13.9 mEq/L (5-15); Aspartate Amino Transferase 18 U/L (14-36); Bilirubin,Total 0.3 mg/dl (0.2-1.3); Blood Urea Nitrogen 33 mg/dl (7-17); Calcium 8.9 mg/dl (8.4-10.2); Carbon Dioxide 25 mmol/L (22.0-30.0); Chloride 105 mmol/L (98-107); Estimated Glomerular Filt Rate 44 ml/min (>60); GFR (African American) 53 ML/MIN (>60); Globulin 2.8 g/dL (1.3-3.2); Glucose 119 mg/dl (74-100); Potassium 4.9 mmoL/L (3.5-5.1); Sodium 139 mmol/L (136-145); Total Protein,Serum 6.7 g/dl (6.3-8.2)
[2021-05-02 17:56] LABS: Intact Parathyroid Hormone 57.7 pg/mL (7.5-53.5)
[2021-05-04 18:15] LABS: Calcium, Ionized 5.1 mg/dL (4.5-5.6)
== END ==
PROVIDERS: PCP Family Medicine; Visit Provider Family Medicine
DX: E34.9 Endocrine disorder, unspecified (principal); U09.9 Post COVID-19 condition, unspecified; E21.3 Hyperparathyroidism, unspecified
CPT/HCPCS: 36415; 76536; 80053; 82330; 83970

== ENCOUNTER → 2021-06-30 11:17 | Outpatient (CLI) | payer MEDICARE, MEDICAID, SELFPAY | PROVIDERS: PCP Emergency Medicine; Visit Provider Surgery | DX: Z01.812 Encounter for preprocedural laboratory examination (principal); Z11.52 Encounter for screening for COVID-19; Z12.11 Encounter for screening for malignant neoplasm of colon | CPT/HCPCS: C9803; U0003; U0005 ==

== ENCOUNTER 2021-07-04 09:37 | Day surgery (SDC) | payer MEDICARE, MEDICAID, SELFPAY ==
[2021-07-04 10:33] VITALS: BP 170/73; PULSE 86; RESP 22; TEMP 36.3; O2SAT 93
[2021-07-04 10:48] LABS: POC Glucose,Bedside 161 (70-110)
[2021-07-04 11:00] VITALS: O2SAT 93
--- NOTE | 2021-07-04 11:01 | HMH.ANESCL ---
[facility] Anesthesia Checklist - Patient Identification Patient Identification: Arm Band, Verbal (Name & ) - Structural Data Admitted From: Home Planned Operative Procedure/s: Colonoscopy Consent for Planned Operative Procedure(s) Verified: Yes Verified Documents: Surgical Consent - NPO Status Verified Time NPO: 03:00 - Airway Assessment C-Spine Mobility Assessed: Yes TMJ Mobility Assessed: Yes Dentition: Edentulous - Neurological Assessment Level of Consciousness: Awake, Alert, Appropriate - Anesthesia Plan Anesthesia Risk discussed: Yes ASA Class: III Anesthesia Type: MAC [facility] History I have reviewed the patient's past medical history: Yes Medical History: Reports:: Chronic Obstructive Pulmonary Disease (COPD), Coronary Artery Disease, Cerebrovascular Accident, Diabetes Mellitus Type 2, Hyperlipidemia, Hypertension, Renal Insufficiency Denies:: Cancer, Diabetes Mellitus Type 1, Internal Pacemaker, MRSA, Seizures *Have you ever received a pneumonia vaccine?: Yes *Have you received a flu vaccine this season?: Yes Other Medical History: Reports: Arthritis, Hypothyroidism Anesthesia experience/problems:: none Other Surgeries: Yes: Cardiac Catheterization, Cholecystectomy, Colonoscopy, Hysterectomy-Total, Other. No: Pacemaker Amputation: No Fractures: No - *Social History Last grade of school completed: 9th or 10th Smoking Status: Former smoker Tobacco Type: cigarettes # Packs/Day (cigarettes): 1 #Yrs smoked (if former smoker): 58 Alcohol Intake: never Substance Use Type: denies use *Occupational Status:: unemployed Housing: apartment Household Members: children *Travel in the last 8 weeks: None Family Hx:: Heart Attack, Hypertension
--- NOTE | 2021-07-04 11:20 | HMH.SCOPE ---
- Procedure: Date: 07/04/21 Patient Date of :: 1945 Procedure Performed:: Colonoscopy (aborted) Indications:: Screening Family history of colon cancer Performing Provider:: Mac Knutson MD Referring Provider:: . Sedation:: Monitored anesthesia care Procedure:: After informed consent was obtained the patient was taken to the endoscopy suite. Sedation ensued after the patient was transferred to the left lateral decubitus position. Pulse, blood pressure, and oxygen saturation were monitored throughout the procedure. Digital rectal exam revealed no significant abnormality. The colonoscope was placed in position. The colonoscope was advanced to the mid transverse colon. Bowel preparation was very poor in visualization was exceptionally limited. Further advancement was deemed unwarranted and the decision to abort was made. The colonoscope was carefully removed and the patient was transferred to recovery in stable condition. Please see findings and specimens below for detail. Findings:: Colonoscopy aborted secondary to exceedingly poor bowel preparation Specimens:: None Recommendations:: Gastroenterology consultation warranted secondary to likely history of irritable bowel with constipation (exceptionally poor bowel preparation noted). Simply repeating the procedure with a different/extended bowel preparation would likely result persistent limited visualization. Complications:: poor prep Estimated blood obtained (mL): 0
[2021-07-04 11:21] VITALS: BP 133/67; PULSE 84; RESP 16; TEMP 36.3; O2SAT 98
[2021-07-04 11:31] VITALS: BP 151/67; PULSE 83; RESP 16; TEMP 36.3; O2SAT 98
[2021-07-04 11:41] VITALS: BP 143/86; PULSE 82; RESP 18; TEMP 36.3; O2SAT 92
[2021-07-04 11:55] VITALS: BP 149/78; PULSE 83; RESP 18; TEMP 36.3; O2SAT 93
--- NOTE | 2021-07-04 13:53 | SUR.PHASEII ---
GUERITA notified at Dr Pittman office that Eamon wants a GI consult scheduled for this patient
== END 2021-07-04 11:55 | disposition home or self-care (01) ==
LOC: OUTP 09:38
PROVIDERS: PCP Family Medicine; Visit Provider Surgery
PROC: 0DJD8ZZ Inspection of Lower Intestinal Tract, Via Natural or Artificial Opening Endoscopic (ICD-10-PCS; CPT 45378; principal; 2021-07-04 11:30)
DX: Z12.11 Encounter for screening for malignant neoplasm of colon (principal); Z80.9 Family history of malignant neoplasm, unspecified; J44.9 Chronic obstructive pulmonary disease, unspecified; I25.10 Atherosclerotic heart disease of native coronary artery without angina pectoris; E11.9 Type 2 diabetes mellitus without complications; E78.5 Hyperlipidemia, unspecified; I10 Essential (primary) hypertension; N28.9 Disorder of kidney and ureter, unspecified; E03.9 Hypothyroidism, unspecified; M19.90 Unspecified osteoarthritis, unspecified site; Z86.73 Personal history of transient ischemic attack (TIA), and cerebral infarction without residual deficits; Z87.891 Personal history of nicotine dependence
CPT/HCPCS: G0104; 82962

== ENCOUNTER → 2021-10-02 07:11 | Outpatient (CLI) | payer MEDICARE, MEDICAID, SELFPAY ==
[2021-10-02 20:11] LABS: Hemoglobin A1C 8.6 % (4.0-6.0)
== END ==
PROVIDERS: PCP Family Medicine; Visit Provider Family Medicine
DX: E11.9 Type 2 diabetes mellitus without complications (principal); Z79.84 Long term (current) use of oral hypoglycemic drugs
CPT/HCPCS: 83036

== ENCOUNTER 2021-10-07 12:18 | Emergency (ER) | payer MEDICARE, MEDICAID, SELFPAY ==
[2021-10-07] VITALS (13 sets, daily range): BP systolic 129–199; BP diastolic 41–93; PULSE 93–116; RESP 16–21; TEMP 37.3–37.8; O2SAT 92–96; BMI 45.9
--- NOTE | 2021-10-07 12:38 | HMH.EDGENADL ---
ED Disposition Clinical Impression: Cellulitis of foot, left Foreign body in left foot Qualifiers: Encounter type: initial encounter Qualified Code(s): S90.852A - Superficial foreign body, left foot, initial encounter Disposition: Xfer Short-Term Hosp Condition on Discharge: Good Referrals: Antonino Jeffers MD [Primary Care Provider] - - Critical Care Critical Care Time: No Attestation: On , the high probability of a clinically significant, sudden or life threatening deterioration of the following system(s) required my full and direct attention, intervention and personal management. The time I documented below is in addition to time spent performing reported procedures but includes the following listed in this critical care notation. Medical Decision Making - Medical Records Medical records reviewed: Yes: I reviewed the patient's medical records. - Alfa Inquiry Pt receiving controlled substance: No Vital Signs: 10/07/21 12:27 10/07/21 12:28 10/07/21 14:00 Temperature 99.1 F Temperature Source Oral Pulse Rate 116 H 109 H Pulse Rate [Left Radial] 93 H Respiratory Rate 18 21 18 Blood Pressure 179/93 H 161/76 H Blood Pressure [Right Arm] 179/91 H Blood Pressure Mean 121 101 Blood Pressure Mean [Right Arm] 120 02 Sat by Pulse Oximetry 94 L 93 L 96 Oxygen Delivery Method Room Air - Lab Data Lab Results 10/07/21 12:40: WBC 10.0, RBC 4.92, Hgb 11.6 L, Hct 37.6, MCV 76.4 L, MCH 23.6 L, MCHC 30.9 L, RDW 16.5, Plt Count 245, MPV 9.5, Neut % (Auto) 81.0 H, Lymph % (Auto) 11.5, [place] % (Auto) 5.9, Eos % (Auto) 1.0, Baso % (Auto) 0.6, Neut # (Auto) 8.1 H, Lymph # (Auto) 1.2, [place] # (Auto) 0.6, Eos # (Auto) 0.1, Baso # (Auto) 0.1 10/07/21 12:40: Sodium 138, Potassium 4.0, Chloride 101, Carbon Dioxide 29, Anion Gap 12.0, BUN 14, Creatinine 0.90, Estimated Creat Clear 38, Estimated GFR 61, Est GFR ( Amer) 74, Glucose 196 H, Calcium 9.3, Total Bilirubin 0.2, AST 22, ALT 18, Alkaline Phosphatase 104, Total Protein 7.7, Albumin 4.0, Globulin 3.7 H, Albumin/Globulin Ratio 1.1 10/07/21 12:40: Lactate 1.4 Result diagrams: 10/07/21 12:40 10/07/21 12:40 Orders (Tests/Meds): ED MEDICATIONS Generic Name Dose Route Start Last Admin Trade Name Freq PRN Reason Stop Dose Admin Sodium Chloride 10 ml 10/07/21 12:32 Sodium Chloride 0.9% 10ml Flush Syringe IV 11/06/21 12:31 NEEDED PRN Maintain IV Site Discontinued Medications Generic Name Dose Route Start Last Admin Trade Name Freq PRN Reason Stop Dose Admin Ceftriaxone Sodium 2 gm/ 100 mls @ 200 mls/hr 10/07/21 12:36 10/07/21 12:45 Sodium Chloride IV 10/07/21 13:05 200 mls/hr ONCE ONE Administration ORDERS Category Date Time Status Blood Culture Stat Micro 10/07/21 12:42 Received - Physician Consults Time: 16:48 (No podiatry public relations counselor here, Dr Ulloa accepts transfer [facility] ) General Adult HPI - General Chief complaint: Extremity Problem,Nontraumatic Stated complaint: LT leg pain Time Seen by Provider: 10/07/21 12:38 Mode of Arrival: Wheelchair Limitations: No Limitations Description of Symptoms (Recalled from ER Triage Doc. by RN): pt to ed c/o left foot redness and swelling. pt states she first noticed the redness on saturday and it has increasingly gotten worse. pt states a hx of diabetes. - History of Present Illness HPI narrative: left foot pain/swell/red 5 days Onset (ago): day(s) Radiation: non-radiation Severity: moderate Quality: constant Consistency: constant Relieving factors: immobilization Exacerbating factors: movement Associated symptoms: denies other symptoms - Related Data Home Medications Medication Instructions Recorded Confirmed Diclofenac Sodium [Voltaren 2 g TP TID 06/12/21 10/02/21 Arthritis Pain] Insulin NPH Hum/Reg Insulin Hm See Rx Instructions .ROUTE .COMPLEX 06/12/21 10/02/21 [Novolin 70/30 U-100 Insulin] Semaglutide [Ozempic] 0.25 mg S
[2021-10-07 13:01] LABS: Basophils # 0.1 K/mm3 (0-0.2); Basophils % 0.6 % (0.1-2.0); Eosinophils # 0.1 K/mm3 (0.0-0.4); Hematocrit 37.6 % (37.0-47.0); Hemoglobin 11.6 g/dL (12.2-16.2); Lymphocytes # 1.2 K/mm3 (0.7-4.5); Lymphocytes % 11.5 % (10-50); Mean Corpuscular HGB Conc 30.9 g/dL (31.8-35.4); Mean Corpuscular Hemoglobin 23.6 pg (27.0-31.2); Mean Corpuscular Volume 76.4 fl (81-99); Mean Platelet Volume 9.5 fl (7.4-10.4); Monocytes # 0.6 K/mm3 (0.1-1.0); Monocytes % 5.9 % (1.7-9.3); Neutrophils # 8.1 K/mm3 (1.8-7.8); Platelet Count 245 K/mm3 (142-424); Red Blood Count 4.92 M/mm3 (4.20-5.40); Red Cell Distribution Width 16.5 % (11.5-17.5)
[2021-10-07 13:08] LABS: Chloride 101 mmol/L (98-107); Sodium 138 mmol/L (136-145)
[2021-10-07 13:10] LABS: Blood Urea Nitrogen 14 mg/dl (7-17); Creatinine Clearance Estimated 38 mL/min (50-200); Estimated Glomerular Filt Rate 61 ml/min (>60); GFR (African American) 74 ML/MIN (>60); Lactic Acid 1.4 mmol/L (0.7-2.1)
--- NOTE | 2021-10-07 13:10 | XR_ITS ---
PROCEDURE INFORMATION: Exam: XR Left Foot Exam date and time: 10/07/2021 1:36 PM Age: 75 years old Clinical indication: Pain; Foot; Left; Additional info: Pain, swelling TECHNIQUE: Imaging protocol: Radiologic exam of the Left foot. Views: 3 or more views. COMPARISON: No relevant prior studies available. FINDINGS: Bones/joints: Linear radiopaque foreign object in the shape of a pin is identified within the soft tissues along the plantar surface of the foot adjacent to the base of the proximal phalanx of the 4th and 5th toes. Small plantar calcaneal spur. Osteophytosis and eburnation of the midfoot structures and in phalangeal articulations. Soft tissues: Mild soft tissue swelling. IMPRESSION: 1. Linear radiopaque foreign object in the shape of a pin is identified within the soft tissues along the plantar surface of the foot adjacent to the base of the proximal phalanx of the 4th and 5th toes. 2. Small plantar calcaneal spur. 3. 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 4. Mild soft tissue swelling.
[2021-10-07 13:11] LABS: Alanine Aminotransferase 18 U/L (12-78); Alkaline Phosphatase 104 U/L (38-126); Aspartate Amino Transferase 22 U/L (14-36); Bilirubin,Total 0.2 mg/dl (0.2-1.3); Calcium 9.3 mg/dl (8.4-10.2); Carbon Dioxide 29 mmol/L (22.0-30.0); Glucose 196 mg/dl (74-100)
[2021-10-07 13:12] LABS: Albumin/Globulin Ratio 1.1 (1.1-1.8); Globulin 3.7 g/dL (1.3-3.2); Total Protein,Serum 7.7 g/dl (6.3-8.2)
--- NOTE | 2021-10-07 13:51 | PC.NURSE ---
PT AMBULATED TO RESTROOM
--- NOTE | 2021-10-07 14:21 | PC.NURSE ---
Paged Dr Angel
--- NOTE | 2021-10-07 15:51 | PC.NURSE ---
speaking with Dr Pereyra at this time.
--- NOTE | 2021-10-07 16:09 | PC.NURSE ---
called Sienna galindo, no podiatry on this weekend, calling [facility] for possible Transfer
--- NOTE | 2021-10-07 16:25 | PC.NURSE ---
ANA TOLEDO on phone with [facility]
--- NOTE | 2021-10-07 16:32 | PC.NURSE ---
[facility] stated they were only taking trauma called [facility], access center is paging [facility]
--- NOTE | 2021-10-07 16:38 | PC.NURSE ---
faxed facesheet to [facility] access center
--- NOTE | 2021-10-07 16:45 | PC.NURSE ---
ER spoke with ANDREW Naqvi for transfer. accepted
--- NOTE | 2021-10-07 18:12 | PC.NURSE ---
Pt requested something for pain. MD notified.
--- NOTE | 2021-10-07 18:37 | PC.NURSE ---
Called report to [facility]. Pt is going to room 435.
--- NOTE | 2021-10-07 18:54 | PC.NURSE ---
Called radiology for a disc.
--- NOTE | 2021-10-07 19:20 | PC.NURSE ---
Notified daughter pt would be getting transferred to [facility]
--- NOTE | 2021-10-07 19:37 | PC.NURSE ---
Rounded on pt. Pt had no needs or complaints. Pt aware that she would be getting transferred to [facility] via EMS
== END 2021-10-07 20:49 | disposition short-term general hospital (02) ==
PROVIDERS: Emergency Provider Emergency Medicine; PCP Emergency Medicine
DX: L03.116 Cellulitis of left lower limb (principal); S90.852A Superficial foreign body, left foot, initial encounter
CPT/HCPCS: 73630; 80053; 83605; 85025; 87040; 99283; J0696

== ENCOUNTER 2021-10-23 10:10 | Outpatient (CLI) | payer MEDICARE, MEDICAID, SELFPAY ==
[2021-10-23 10:17] VITALS: BMI 33.9
[2021-10-23 10:50] LABS: Basophils # 0.1 K/mm3 (0-0.2); Basophils % 1.1 % (0.1-2.0); Eosinophils # 0.2 K/mm3 (0.0-0.4); Eosinophils % 2.6 % (0.1-12.0); Hemoglobin 10.5 g/dL (12.2-16.2); Lymphocytes # 1.9 K/mm3 (0.7-4.5); Lymphocytes % 29.8 % (10-50); Mean Corpuscular Hemoglobin 23.7 pg (27.0-31.2); Mean Corpuscular Volume 76.6 fl (81-99); Mean Platelet Volume 9.4 fl (7.4-10.4); Monocytes # 0.3 K/mm3 (0.1-1.0); Neutrophils # 3.9 K/mm3 (1.8-7.8); Neutrophils % 61.4 % (37.0-80.0); Platelet Count 261 K/mm3 (142-424); Red Blood Count 4.44 M/mm3 (4.20-5.40); Red Cell Distribution Width 16.7 % (11.5-17.5); White Blood Count 6.3 K/mm3 (4.8-10.8)
[2021-10-23 11:01] LABS: Alanine Aminotransferase 17 U/L (12-78); Albumin Level 3.7 g/dl (3.5-5.0); Alkaline Phosphatase 90 U/L (38-126); Anion Gap 10.2 mEq/L (5-15); Aspartate Amino Transferase 24 U/L (14-36); Blood Urea Nitrogen 16 mg/dl (7-17); Calcium 8.9 mg/dl (8.4-10.2); Carbon Dioxide 29 mmol/L (22.0-30.0); Chloride 107 mmol/L (98-107); Creatine Kinase 50 U/L (30-135); Creatinine Clearance Estimated 80 mL/min (50-200); Estimated Glomerular Filt Rate 61 ml/min (>60); GFR (African American) 74 ML/MIN (>60); Globulin 3.7 g/dL (1.3-3.2); Glucose 91 mg/dl (74-100); Potassium 4.2 mmoL/L (3.5-5.1); Sodium 142 mmol/L (136-145); Total Protein,Serum 7.4 g/dl (6.3-8.2)
[2021-10-23 11:07] LABS: C-Reactive Protein 5.7 mg/L (0-4)
[2021-10-23 11:10] LABS: Bilirubin,Total < 0.1 mg/dl (0.2-1.3)
[2021-10-23 11:18] LABS: Erythrocyte Sedimentation Rate 77 mm/hr (0-30)
== END 2021-10-23 11:07 | disposition home or self-care (01) ==
LOC: INF 10:12
PROVIDERS: PCP Emergency Medicine; Visit Provider Internal Medicine Infectious Disease
DX: L03.116 Cellulitis of left lower limb (principal); Z45.2 Encounter for adjustment and management of vascular access device
CPT/HCPCS: 36592; 80053; 82550; 85025; 85651; 86140

== ENCOUNTER 2021-10-31 09:27 | Outpatient (CLI) | payer MEDICARE, MEDICAID, SELFPAY ==
[2021-10-31 09:31] VITALS: BMI 33.9
[2021-10-31 10:00] LABS: Basophils # 0.1 K/mm3 (0-0.2); Basophils % 1.3 % (0.1-2.0); Eosinophils # 0.3 K/mm3 (0.0-0.4); Eosinophils % 6.7 % (0.1-12.0); Hematocrit 33.9 % (37.0-47.0); Hemoglobin 10.6 g/dL (12.2-16.2); Lymphocytes # 1.6 K/mm3 (0.7-4.5); Lymphocytes % 34.3 % (10-50); Mean Corpuscular HGB Conc 31.2 g/dL (31.8-35.4); Mean Corpuscular Hemoglobin 23.6 pg (27.0-31.2); Mean Corpuscular Volume 75.7 fl (81-99); Monocytes # 0.4 K/mm3 (0.1-1.0); Monocytes % 7.2 % (1.7-9.3); Neutrophils # 2.4 K/mm3 (1.8-7.8); Neutrophils % 50.5 % (37.0-80.0); Platelet Count 158 K/mm3 (142-424); Red Blood Count 4.47 M/mm3 (4.20-5.40); Red Cell Distribution Width 16.5 % (11.5-17.5); White Blood Count 4.8 K/mm3 (4.8-10.8)
[2021-10-31 10:02] LABS: Creatine Kinase 67 U/L (30-135)
[2021-10-31 10:08] LABS: C-Reactive Protein 7.5 mg/L (0-4)
[2021-10-31 10:13] LABS: Alanine Aminotransferase 18 U/L (12-78); Albumin Level 3.8 g/dl (3.5-5.0); Albumin/Globulin Ratio 1.1 (1.1-1.8); Alkaline Phosphatase 94 U/L (38-126); Anion Gap 11.4 mEq/L (5-15); Aspartate Amino Transferase 24 U/L (14-36); Blood Urea Nitrogen 19 mg/dl (7-17); Calcium 8.9 mg/dl (8.4-10.2); Carbon Dioxide 29 mmol/L (22.0-30.0); Chloride 104 mmol/L (98-107); Creatinine Clearance Estimated 80 mL/min (50-200); Estimated Glomerular Filt Rate 61 ml/min (>60); GFR (African American) 74 ML/MIN (>60); Globulin 3.5 g/dL (1.3-3.2); Glucose 134 mg/dl (74-100); Potassium 4.4 mmoL/L (3.5-5.1); Sodium 140 mmol/L (136-145); Total Protein,Serum 7.3 g/dl (6.3-8.2)
[2021-10-31 10:14] LABS: Bilirubin,Total < 0.1 mg/dl (0.2-1.3)
[2021-10-31 10:28] LABS: Erythrocyte Sedimentation Rate 42 mm/hr (0-30)
== END 2021-10-31 10:00 | disposition home or self-care (01) ==
LOC: INF 09:27
PROVIDERS: PCP Emergency Medicine
DX: L03.319 Cellulitis of trunk, unspecified (principal); L03.116 Cellulitis of left lower limb
CPT/HCPCS: 36592; 80053; 82550; 85025; 85651; 86140

== ENCOUNTER 2021-11-06 09:56 | Outpatient (CLI) | payer MEDICARE, MEDICAID, SELFPAY | END 2021-11-06 10:15 | disposition home or self-care (01) | LOC: INF 09:58 | PROVIDERS: PCP Emergency Medicine; Visit Provider Internal Medicine Infectious Disease | DX: Z45.2 Encounter for adjustment and management of vascular access device (principal); S91.342D Puncture wound with foreign body, left foot, subsequent encounter; L03.116 Cellulitis of left lower limb; B95.62 Methicillin resistant Staphylococcus aureus infection as the cause of diseases classified elsewhere; D72.823 Leukemoid reaction | CPT/HCPCS: G0463 ==

== ENCOUNTER → 2021-11-16 16:42 | Outpatient (CLI) | payer MEDICARE, MEDICAID, SELFPAY | PROVIDERS: PCP Family Medicine; Visit Provider Family Medicine | DX: E11.69 Type 2 diabetes mellitus with other specified complication (principal); Z79.4 Long term (current) use of insulin | CPT/HCPCS: 87070; 87077; 87186; 87205 ==

== ENCOUNTER → 2022-03-06 10:07 | Outpatient (CLI) | payer MEDICARE, MEDICAID, SELFPAY ==
[2022-03-06 12:43] VITALS: BMI 33.7
== END ==
PROVIDERS: PCP Family Medicine; Visit Provider Nurse Practitioner Family
DX: Z71.3 Dietary counseling and surveillance (principal); E11.9 Type 2 diabetes mellitus without complications
CPT/HCPCS: 97802

== ENCOUNTER → 2022-03-19 08:57 | Outpatient (CLI) | payer MEDICARE, MEDICAID, SELFPAY ==
--- NOTE | 2022-03-19 | ECG_ITS ---
APPROVED REPORT Exam: Resting ECG HR:76 bpm ECG Measurements Heart Rate 76 AXES NC 177 P 65 QRSd 154 QRS 69 QT 430 T 102 QTc 461 Conclusion SINUS RHYTHM WITH SINUS ARRHYTHMIA LEFT BUNDLE BRANCH BLOCK [120+ ms QRS DURATION, 80+ ms Q/S IN V1/V2, 85+ ms R IN I/aVL/V5/V6] ABNORMAL ECG UNCONFIRMED REPORT Electronically signed by : Richi Palomino MD 03/19/2022 20:13:10
[2022-03-19 10:52] LABS: Chloride 106 mmol/L (98-107); Sodium 143 mmol/L (136-145)
[2022-03-19 10:53] LABS: Potassium 4.4 mmoL/L (3.5-5.1)
[2022-03-19 10:56] LABS: Anion Gap 12.4 mEq/L (5-15); Blood Urea Nitrogen 18 mg/dl (7-17); Calcium 8.6 mg/dl (8.4-10.2); Carbon Dioxide 29 mmol/L (22.0-30.0); Estimated Glomerular Filt Rate 54 ml/min (>60); GFR (African American) 66 ML/MIN (>60); Glucose 67 mg/dl (74-100)
== END ==
PROVIDERS: PCP Family Medicine; Visit Provider Ophthalmology
DX: H02.423 Myogenic ptosis of bilateral eyelids (principal)
CPT/HCPCS: 36415; 80048; 93005

== ENCOUNTER → 2022-06-04 10:30 | Outpatient (CLI) | payer MEDICARE, MEDICAID, SELFPAY ==
[2022-06-04 15:24] LABS: Basophils # 0.1 K/mm3 (0-0.2); Basophils % 0.7 % (0.1-2.0); Eosinophils # 0.2 K/mm3 (0.0-0.4); Eosinophils % 3.5 % (0.1-12.0); Hematocrit 38.7 % (37.0-47.0); Hemoglobin 12.1 g/dL (12.2-16.2); Lymphocytes % 30.3 % (10-50); Mean Corpuscular HGB Conc 31.4 g/dL (31.8-35.4); Mean Corpuscular Hemoglobin 23.8 pg (27.0-31.2); Mean Corpuscular Volume 75.9 fl (81-99); Mean Platelet Volume 9.7 fl (7.4-10.4); Monocytes # 0.4 K/mm3 (0.1-1.0); Monocytes % 6.6 % (1.7-9.3); Neutrophils # 3.8 K/mm3 (1.8-7.8); Neutrophils % 58.8 % (37.0-80.0); Platelet Count 183 K/mm3 (142-424); Red Cell Distribution Width 18.1 % (11.5-17.5); White Blood Count 6.4 K/mm3 (4.8-10.8)
[2022-06-04 16:02] LABS: Alanine Aminotransferase 15 U/L (12-78); Albumin Level 3.9 g/dl (3.5-5.0); Albumin/Globulin Ratio 1.3 (1.1-1.8); Alkaline Phosphatase 80 U/L (38-126); Anion Gap 6.3 mEq/L (5-15); Aspartate Amino Transferase 22 U/L (14-36); Bilirubin,Total 0.3 mg/dl (0.2-1.3); Blood Urea Nitrogen 21 mg/dl (7-17); Calcium 9.2 mg/dl (8.4-10.2); Carbon Dioxide 29 mmol/L (22.0-30.0); Chloride 103 mmol/L (98-107); Chol/HDL Ratio 5.4 (1-3.5); Cholesterol 189 mg/dl (140-200); Estimated Glomerular Filt Rate 54 ml/min (>60); GFR (African American) 66 ML/MIN (>60); Glucose 137 mg/dl (74-100); HDL Cholesterol 35 mg/dl (40-60); Potassium 4.3 mmoL/L (3.5-5.1); Sodium 134 mmol/L (136-145); Total Protein,Serum 6.9 g/dl (6.3-8.2); Triglycerides 279 mg/dl (30-150); VLDL Cholesterol 56 mg/dL (0-40)
[2022-06-04 16:13] LABS: Direct LDL Cholesterol 98.83 mg/dL (100-129)
[2022-06-04 16:33] LABS: Thyroid Stimulating Hormone 2.46 uIU/mL (0.465-4.68)
== END ==
PROVIDERS: PCP Family Medicine; Visit Provider Family Medicine
DX: E11.22 Type 2 diabetes mellitus with diabetic chronic kidney disease; E66.3 Overweight; R79.89 Other specified abnormal findings of blood chemistry; R21 Rash and other nonspecific skin eruption; Z68.31 Body mass index [BMI] 31.0-31.9, adult; Z79.4 Long term (current) use of insulin
CPT/HCPCS: 80053; 80061; 83036; 84443; 85025

== ENCOUNTER 2022-08-07 13:27 | Emergency (ER) | payer MEDICARE, MEDICAID, SELFPAY ==
[2022-08-07] VITALS (11 sets, daily range): BP systolic 92–180; BP diastolic 54–105; PULSE 76–99; RESP 16–19; TEMP 36.7–37.1; O2SAT 91–94; BMI 36.6
--- NOTE | 2022-08-07 13:25 | ECG_ITS ---
APPROVED REPORT Exam: Resting ECG HR:98 bpm ECG Measurements Heart Rate 98 AXES NJ 175 P 70 QRSd 154 QRS -14 QT 386 T 119 QTc 441 Conclusion SINUS RHYTHM LEFT BUNDLE BRANCH BLOCK [120+ ms QRS DURATION, 80+ ms Q/S IN V1/V2, 85+ ms R IN I/aVL/V5/V6] ABNORMAL ECG UNCONFIRMED REPORT Electronically signed by : Richi Palomino MD 08/07/2022 20:02:04
[2022-08-07 13:41] LABS: Microscopic, Urine URINE MICROSCOPIC (MICROSCOPIC)
[2022-08-07 13:43] LABS: Appearance,Urine CLEAR (Clear); Bilirubin,Urine Negative (Negative); Blood, Urine TRACE-I (Negative); Color,Urine YELLOW (Yellow); Glucose,Urine (UA) Negative (Negative); Ketones,Urine Negative (Negative); Leukocyte Esterase,Urine Negative (Negative); Nitrate,Urine Negative (Negative); PH,Urine 7.5 (5.0-8.5); Protein,Urine 2+ (Negative); Specific Gravity, Urine 1.025 (1.005-1.030); Urobilinogen,Urine 0.2 EU/dl (0.2)
--- NOTE | 2022-08-07 13:46 | XR_ITS ---
FINAL REPORT TECHNIQUE: Chest PA & Lateral CLINICAL HISTORY: WEAKNESS COMPARISON: 02/2021 FINDINGS: 2 views of the chest were performed. The heart size is normal. The mediastinum is within normal limits. There is worsening right base atelectasis or pneumonia. There are no pleural effusions. There is no pneumothorax. The bony thorax appears intact. IMPRESSION: Worsening right basilar atelectasis or pneumonia. Reviewed, Interpreted and Dictated by Spencer Joshi III, MD Transcribed by Guido Zamora Authenticated and [facility]
[2022-08-07 13:54] LABS: Bacteria,Urine Trace /lpf; WBC,Urine Occasional #/hpf (0-3)
[2022-08-07 13:55] LABS: RBC,Urine Occasional #/hpf (0-3)
[2022-08-07 14:00] LABS: Alanine Aminotransferase 24 U/L (12-78); Albumin Level 4.3 g/dl (3.5-5.0); Albumin/Globulin Ratio 1.1 (1.1-1.8); Alkaline Phosphatase 81 U/L (38-126); Anion Gap 15.3 mEq/L (5-15); Aspartate Amino Transferase 31 U/L (14-36); Bilirubin,Total 0.4 mg/dl (0.2-1.3); Blood Urea Nitrogen 18 mg/dl (7-17); Calcium 9.3 mg/dl (8.4-10.2); Carbon Dioxide 30 mmol/L (22.0-30.0); Chloride 100 mmol/L (98-107); Creatinine Clearance Estimated 75 mL/min (50-200); Estimated Glomerular Filt Rate 70 ml/min (>60); GFR (African American) 85 ML/MIN (>60); Glucose 132 mg/dl (74-100); Potassium 4.3 mmoL/L (3.5-5.1); Sodium 141 mmol/L (136-145); Total Protein,Serum 8.3 g/dl (6.3-8.2)
--- NOTE | 2022-08-07 14:02 | PC.NURSE ---
ANA TOLEDO at
--- NOTE | 2022-08-07 14:06 | CT_ITS ---
FINAL REPORT CLINICAL HISTORY: dizzy FINDINGS: Axial images of the head were obtained without contrast. Coronal reformatted images were also obtained. This study was performed with techniques to keep radiation doses as low as reasonably achievable (ALARA). Individualized dose reduction techniques using automated exposure control or adjustment of mA and/or kV according to the patient's size were employed. There is generalized age-appropriate atrophy. There is left parietal encephalomalacia. Periventricular low-attenuation areas are seen consistent with mild chronic ischemic changes. There is no evidence of intracranial hemorrhage or mass. There is no evidence of acute infarct. There is no evidence of shift of the midline structures. No skull abnormality is seen on the bone window images. IMPRESSION: Atrophy and mild periventricular chronic ischemic changes. No acute intracranial abnormality identified. Reviewed, Interpreted and Dictated by Spencer Joshi III, MD Transcribed by Guido Zamora Authenticated and [facility]
--- NOTE | 2022-08-07 14:09 | HMH.EDGENADL ---
Discharge Plan Disposition Patient Disposition: Home, Self-Care Condition: Fair Chief Complaint: Weakness Prescriptions Prescriptions: No Action Ozempic 1 mg/dose (4 mg/3 mL) pen injector 1 mg SQ WEEKLY Qty: 3 10RF insulin glargine [Lantus U-100 Insulin] 100 unit/mL solution 40 unit SQ HS Qty: 10 2RF insulin aspart U-100 [Novolog FlexPen U-100 Insulin] 100 unit/mL (3 mL) insulin pen 15 unit SQ TID Qty: 15 10RF Rx Instructions: take half hour before eating oxycodone-acetaminophen [Percocet] 5-325 mg tablet 1 tab PO TID PRN (Reason: pain) Qty: 90 0RF lisinopril 40 mg tablet 40 mg PO DAILY Qty: 90 3RF metformin 1,000 mg tablet See Rx Instructions .ROUTE .COMPLEX Qty: 180 2RF Dose Instruction: TAKE 1 TABLET BY MOUTH TWICE DAILY WITH FOOD FOR DIABETES Rx Instructions: TAKE 1 TABLET BY MOUTH TWICE DAILY WITH FOOD FOR DIABETES diflorasone 0.05 % ointment 1 applic topical BID PRN (Reason: skin irritation) Qty: 60 1RF cholecalciferol (vitamin D3) 25 mcg (1,000 unit) capsule See Rx Instructions .ROUTE .COMPLEX Qty: 90 1RF Dose Instruction: TAKE 1 CAPSULE BY MOUTH ONCE DAILY Rx Instructions: TAKE 1 CAPSULE BY MOUTH ONCE DAILY (DME) insulin syringe-needle U-100 [Sure Comfort Ins. Syr. U-100] 0.5 mL 29 gauge x 1/2 syringe See Rx Instructions .ROUTE .COMPLEX Qty: 100 9RF Dose Instruction: USE TWICE DAILY DIRECTED Rx Instructions: USE TWICE DAILY DIRECTED (DME) Dexcom G6 Channel Specialist Misc See Rx Instructions .Route Qty: 1 3RF Rx Instructions: As directed (DME) Dexcom G6 Transmitter Device See Rx Instructions .Route Qty: 1 3RF Rx Instructions: As directed omeprazole 20 mg capsule,delayed release(DR/EC) 20 mg PO DAILY Qty: 90 0RF cetirizine 10 mg tablet See Rx Instructions .ROUTE .COMPLEX Qty: 90 1RF Dose Instruction: TAKE ONE TABLET BY MOUTH EVERY DAY Rx Instructions: TAKE ONE TABLET BY MOUTH EVERY DAY isosorbide mononitrate 60 mg tablet extended release 24 hr See Rx Instructions .ROUTE .COMPLEX Qty: 90 1RF Dose Instruction: TAKE ONE TABLET BY MOUTH EVERY DAY FOR CHEST PAIN Rx Instructions: TAKE ONE TABLET BY MOUTH EVERY DAY FOR CHEST PAIN metoprolol succinate 50 mg tablet extended release 24 hr See Rx Instructions .ROUTE .COMPLEX Qty: 90 1RF Dose Instruction: TAKE ONE TABLET BY MOUTH EVERY DAY FOR BLOOD PRESSURE Rx Instructions: TAKE ONE TABLET BY MOUTH EVERY DAY FOR BLOOD PRESSURE (DME) Dexcom G6 Sensor Device See Rx Instructions .ROUTE .COMPLEX Qty: 3 2RF Dose Instruction: CHANGE EVERY 10 DAYS Rx Instructions: CHANGE EVERY 10 DAYS ergocalciferol (vitamin D2) [Vitamin D2] 1,250 mcg (50,000 unit) capsule See Rx Instructions .ROUTE .COMPLEX Qty: 14 0RF Dose Instruction: TAKE 1 CAPSULE BY MOUTH EVERY WEEK Rx Instructions: TAKE 1 CAPSULE BY MOUTH EVERY WEEK diclofenac sodium 20 GM gel 2 g TP TID Rx Instructions: apply to knee and back albuterol sulfate 8.5 GM HFA aerosol inhaler 2 puff IH Q4HP PRN (Reason: Wheezing) Qty: 1 0RF Referrals Follow up/Referrals: Antonino Jeffers MD [Primary Care Provider] - See instructions Clinical Impressions Clinical Impression: Generalized weakness, Dehydration Instructions Patient Instructions: DI for Dehydration -- Adult, DI for Muscle Weakness Discharge ED Provider: [facility] HPI General Chief complaint: Weakness Stated complaint: weakness Time Seen by Provider: 08/07/22 14:14 Mode of Arrival: EMS Source of Information: Patient Limitations: No Limitations Description of Symptoms (Recalled from ER Triage Doc. by RN): PT TO THE ED VIA EMS FROM HOME WITH WEAKNESS AND BURNING WHEN URINATING X 4 DAYS. PT DENIES ANY CHEST PAIN, SOB OR RECENT ILLNESS AT THIS TIME History of Present Illness HPI narrative: This is a 76-yea
[2022-08-07 14:14] LABS: Basophils % 0.4 % (0.1-2.0); Eosinophils # 0.6 K/mm3 (0.0-0.4); Eosinophils % 8.3 % (0.1-12.0); Hemoglobin 13.4 g/dL (12.2-16.2); Lymphocytes # 1.7 K/mm3 (0.7-4.5); Mean Corpuscular HGB Conc 31.1 g/dL (31.8-35.4); Mean Corpuscular Hemoglobin 24.3 pg (27.0-31.2); Mean Corpuscular Volume 78.2 fl (81-99); Mean Platelet Volume 9.5 fl (7.4-10.4); Monocytes # 0.4 K/mm3 (0.1-1.0); Monocytes % 5.3 % (1.7-9.3); Neutrophils # 4.3 K/mm3 (1.8-7.8); Neutrophils % 61.9 % (37.0-80.0); Platelet Count 181 K/mm3 (142-424); Red Cell Distribution Width 17.2 % (11.5-17.5)
[2022-08-07 14:16] LABS: Troponin I < 0.01 ng/ml (0.00-0.034)
--- NOTE | 2022-08-07 15:30 | CT_ITS ---
FINAL REPORT TECHNIQUE: Axial images were obtained from the lung apex to the mid abdomen by computed tomography. Coronal reformatted images were obtained. This study was performed with techniques to keep radiation doses as low as reasonably achievable, (ALARA). Individualized dose reduction techniques using automated exposure control or adjustment of mA and/or kV according to the patient''s size were employed. CLINICAL HISTORY: rll atx v pna FINDINGS: There is no axillary adenopathy. There is no hilar or mediastinal adenopathy. Heart size is normal. There is no pericardial or pleural effusion. Limited images of the upper abdomen are unremarkable. There is right middle lobe and bibasilar lower lobe atelectasis present. There are bilateral adrenal nodules noted in the upper abdomen most likely adenomas. The patient is status post cholecystectomy. IMPRESSION: Right middle lobe and bibasilar lower lobe atelectasis. Bilateral adrenal nodules most likely adenomas. Reviewed, Interpreted and Dictated by Spencer Joshi III, MD Transcribed by Mariela Nina Authenticated and [facility]
--- NOTE | 2022-08-07 15:46 | PC.NURSE ---
patient to radiology
[2022-08-07 16:09] LABS: Lactic Acid 1.2 mmol/L (0.7-2.1)
--- NOTE | 2022-08-07 17:01 | PC.NURSE ---
waiting foundation assistant back from radiology-calling to check status of Ct chest reading
--- NOTE | 2022-08-07 17:06 | PC.NURSE ---
notified ER pt CT chest reading is in the computer
== END 2022-08-07 17:55 | disposition home or self-care (01) ==
PROVIDERS: Emergency Provider Emergency Medicine; PCP Emergency Medicine
DX: E86.0 Dehydration (principal); R53.1 Weakness; J44.9 Chronic obstructive pulmonary disease, unspecified; E11.9 Type 2 diabetes mellitus without complications; I11.9 Hypertensive heart disease without heart failure; I25.10 Atherosclerotic heart disease of native coronary artery without angina pectoris; E78.5 Hyperlipidemia, unspecified; M51.36 Other intervertebral disc degeneration, lumbar region
CPT/HCPCS: 70450; 71046; 71250; 80053; 81001; 83605; 84484; 85025; 87040; 93005; 96360; 99285

== ENCOUNTER → 2022-08-17 09:57 | Outpatient (CLI) | payer MEDICARE, MEDICAID, SELFPAY ==
--- NOTE | 2022-08-17 10:00 | CA_ITS ---
FINAL REPORT TECHNIQUE: Real-time imaging was performed of the extracranial carotid arteries in transverse and longitudinal planes, with color duplex evaluation of blood flow velocity. Spectral analysis was performed. The cervical vertebral arteries were also examined. CLINICAL HISTORY: bruit left carotid artery FINDINGS: NASCET technique is utilized for stenosis evaluation. Right carotid system (centimeters/second): CCA: 76.5 ICA: 93.5 ECA: 103.3 Vertebral artery: Antegrade ICA/CCA ratio: 1.47 Mild calcified plaque is identified at the bifurcation. Left carotid system (centimeters/second): CCA: 92 ICA: 132.3 ECA: 267 Vertebral artery: Antegrade ICA/CCA ratio: 107 Mild calcified plaque is identified at the bifurcation. IMPRESSION: Less than 50 % right ICA stenosis. Less than 50 % left ICA stenosis. Antegrade flow in bilateral vertebral arteries. Reviewed, Interpreted and Dictated by Gurjit Richey MD Transcribed by Mariela Nina Authenticated and [facility]
== END ==
PROVIDERS: PCP Family Medicine; Visit Provider Family Medicine
DX: R09.89 Other specified symptoms and signs involving the circulatory and respiratory systems (principal)
CPT/HCPCS: 93880

== ENCOUNTER 2022-09-11 14:23 | Emergency (ER) | payer MEDICARE, MEDICAID, SELFPAY ==
--- NOTE | 2022-09-11 14:21 | ECG_ITS ---
APPROVED REPORT Exam: Resting ECG HR:92 bpm ECG Measurements Heart Rate 92 AXES DC 174 P 68 QRSd 157 QRS 32 QT 387 T 114 QTc 437 Conclusion SINUS RHYTHM LEFT BUNDLE BRANCH BLOCK [120+ ms QRS DURATION, 80+ ms Q/S IN V1/V2, 85+ ms R IN I/aVL/V5/V6] ABNORMAL ECG UNCONFIRMED REPORT Electronically signed by : Richi Palomino MD 09/12/2022 21:19:53
[2022-09-11 14:25] VITALS: BP 192/97; PULSE 95; RESP 20; TEMP 36.8; O2SAT 92; BMI 35.0
--- NOTE | 2022-09-11 14:50 | CT_ITS ---
FINAL REPORT TECHNIQUE: Thin section axial images were obtained through the neck and head after intravenous contrast per CT angiogram protocol. Reconstruction images were obtained from the axial data. Exam was performed using dose reduction technique. CLINICAL HISTORY: dizzy x2 days, hx cva COMPARISON: None. FINDINGS: CTA NECK: Aortic arch: There is a normal three-vessel configuration to the aortic arch. There is calcification at the origin of the left subclavian artery with approximately 50% stenosis. Right carotid artery: The right common carotid artery is patent without stenosis. There is significant calcification at the carotid bulb. There is at least 70% stenosis in the proximal right internal carotid artery which is medially deviated. The more distal portions are widely patent to the skull base. Left carotid artery: The left common carotid artery is patent without stenosis. There is significant calcification at the carotid bulb with a significant stenosis of at least 80%. Evaluation somewhat limited by the very dense calcifications. The more distal portions of the left internal carotid artery are patent to the skull base. Vertebral arteries: The vertebral arteries are patent. Other soft tissues: No acute abnormality. IMPRESSION: 1. 70% stenosis in the proximal right internal carotid artery. 2. Very dense calcifications at the left carotid bulb with significant stenosis, at least 80%. Authenticated and [facility]
--- NOTE | 2022-09-11 14:50 | CT_ITS ---
FINAL REPORT TECHNIQUE: Thin section axial images were obtained from skull base to vertex without contrast. Coronal reconstruction images were obtained from the axial data. Exam was performed using dose reduction technique. CLINICAL HISTORY: dizziness x2 days hx cva COMPARISON: 08/07/2022 FINDINGS: There is age-appropriate atrophy. There is no mass effect or midline shift. There is no intracranial hemorrhage. There is no hydrocephalus. Periventricular low density is likely related to changes of chronic small vessel ischemia. The basilar cisterns are preserved. The posterior fossa is without acute abnormality. The soft tissues are without acute abnormality. No acute osseous abnormality is identified. IMPRESSION: No acute intracranial abnormality. Atrophy and changes suggesting chronic small vessel ischemia. Reviewed, Interpreted and Dictated by Nadya Vail MD Transcribed by Soco Gilmore Authenticated and [facility]
--- NOTE | 2022-09-11 14:50 | CT_ITS ---
FINAL REPORT TECHNIQUE: Inspection axial images were obtained through the neck and head after intravenous contrast. Multiplanar reconstruction images were obtained from the axial data. Exam was performed using dose reduction technique. CLINICAL HISTORY: dizzy x2 days, hx cva stroke protocol FINDINGS: CTA HEAD: The intracerebral portions of the carotid arteries are patent. The anterior and middle cerebral arteries are patent. There are persistent origins of the bilateral posterior cerebral arteries The basilar artery is small but patent. The vertebral arteries are patent. [place] is intact. There is no evidence of large vessel occlusion or significant stenosis. No aneurysm or AVM. IMPRESSION: No evidence of large vessel occlusion or significant stenosis. Authenticated and [facility]
--- NOTE | 2022-09-11 14:58 | PC.NURSE ---
Rounded on patient; updated on plan of care. Nothing needed at this time; call light within reach of patient
[2022-09-11 15:00] VITALS: BP 165/79; PULSE 92; RESP 17; O2SAT 94
[2022-09-11 15:01] LABS: Basophils % 0.5 % (0.1-2.0); Eosinophils # 0.3 K/mm3 (0.0-0.4); Eosinophils % 4.6 % (0.1-12.0); Hematocrit 40.1 % (37.0-47.0); Hemoglobin 12.9 g/dL (12.2-16.2); Lymphocytes # 1.5 K/mm3 (0.7-4.5); Lymphocytes % 23.7 % (10-50); Mean Corpuscular HGB Conc 32.1 g/dL (31.8-35.4); Mean Corpuscular Hemoglobin 24.9 pg (27.0-31.2); Mean Corpuscular Volume 77.7 fl (81-99); Mean Platelet Volume 9.5 fl (7.4-10.4); Monocytes # 0.4 K/mm3 (0.1-1.0); Monocytes % 5.5 % (1.7-9.3); Neutrophils # 4.3 K/mm3 (1.8-7.8); Neutrophils % 65.7 % (37.0-80.0); Platelet Count 166 K/mm3 (142-424); Red Blood Count 5.17 M/mm3 (4.20-5.40); Red Cell Distribution Width 16.5 % (11.5-17.5); White Blood Count 6.5 K/mm3 (4.8-10.8)
[2022-09-11 15:03] LABS: Alanine Aminotransferase 17 U/L (12-78); Albumin Level 4.3 g/dl (3.5-5.0); Albumin/Globulin Ratio 1.2 (1.1-1.8); Alkaline Phosphatase 84 U/L (38-126); Anion Gap 12.4 mEq/L (5-15); Aspartate Amino Transferase 25 U/L (14-36); Bilirubin,Total 0.2 mg/dl (0.2-1.3); Blood Urea Nitrogen 16 mg/dl (7-17); Calcium 9.2 mg/dl (8.4-10.2); Carbon Dioxide 28 mmol/L (22.0-30.0); Chloride 105 mmol/L (98-107); Creatinine Clearance Estimated 72 mL/min (50-200); Estimated Glomerular Filt Rate 61 ml/min (>60); GFR (African American) 74 ML/MIN (>60); Globulin 3.7 g/dL (1.3-3.2); Glucose 118 mg/dl (74-100); Potassium 4.4 mmoL/L (3.5-5.1); Sodium 141 mmol/L (136-145)
[2022-09-11 15:13] LABS: Microscopic, Urine URINE MICROSCOPIC (MICROSCOPIC)
[2022-09-11 15:22] LABS: Appearance,Urine CLEAR (Clear); Bilirubin,Urine Negative (Negative); Blood, Urine Negative (Negative); Color,Urine YELLOW (Yellow); Glucose,Urine (UA) Negative (Negative); Ketones,Urine Negative (Negative); Leukocyte Esterase,Urine Negative (Negative); Nitrate,Urine Negative (Negative); PH,Urine 6.5 (5.0-8.5); Protein,Urine 1+ (Negative); Urobilinogen,Urine 0.2 EU/dl (0.2)
[2022-09-11 15:30] VITALS: BP 197/112; PULSE 85; RESP 18; O2SAT 96
[2022-09-11 15:45] LABS: Squamous Epithelial Cell,Urine Occasional #/hpf (0-5); WBC,Urine Occasional #/hpf (0-3)
--- NOTE | 2022-09-11 15:52 | PC.NURSE ---
PT CLEANED AND CHANGED BY THIS NURSE AND CONTINUOUS WAVE OPERATOR. PT RESTING COMFORTABLY IN THE BED. CALL LIGHT WITHIN REACH. BED IN LOWEST POSITION.
--- NOTE | 2022-09-11 15:52 | PC.NURSE ---
contacted [facility] per ER doctor to consult with Neuro about this pt. while on the phone waiting [facility] was on the phone with our ER Doctor
--- NOTE | 2022-09-11 15:54 | PC.NURSE ---
DR CHENEY SPEAKING WITH [facility]
[2022-09-11 16:00] VITALS: BP 170/90; PULSE 90; RESP 21; O2SAT 95
--- NOTE | 2022-09-11 16:01 | HMH.EDDIZZ ---
Discharge Plan Disposition Patient Disposition: Home, Self-Care Condition: Fair Prescriptions Prescriptions: No Action diflorasone 0.05 % ointment 1 applic topical BID PRN (Reason: skin irritation) Qty: 60 1RF cholecalciferol (vitamin D3) 25 mcg (1,000 unit) capsule See Rx Instructions .ROUTE .COMPLEX Qty: 90 1RF Dose Instruction: TAKE 1 CAPSULE BY MOUTH ONCE DAILY Rx Instructions: TAKE 1 CAPSULE BY MOUTH ONCE DAILY (DME) insulin syringe-needle U-100 [Sure Comfort Ins. Syr. U-100] 0.5 mL 29 gauge x 1/2 syringe See Rx Instructions .ROUTE .COMPLEX Qty: 100 9RF Dose Instruction: USE TWICE DAILY DIRECTED Rx Instructions: USE TWICE DAILY DIRECTED insulin glargine [Lantus U-100 Insulin] 100 unit/mL solution 40 unit SQ HS Qty: 10 10RF albuterol sulfate 90 mcg/actuation HFA aerosol inhaler 2 puff IH Q4HP PRN (Reason: Wheezing) Qty: 1 0RF aspirin [Adult Aspirin Regimen] 81 mg tablet,delayed release (DR/EC) 81 mg PO DAILY Qty: 100 3RF ergocalciferol (vitamin D2) [Vitamin D2] 1,250 mcg (50,000 unit) capsule See Rx Instructions .ROUTE .COMPLEX Qty: 14 0RF Dose Instruction: TAKE 1 CAPSULE BY MOUTH EVERY WEEK Rx Instructions: TAKE 1 CAPSULE BY MOUTH EVERY WEEK insulin aspart U-100 [Novolog FlexPen U-100 Insulin] 100 unit/mL (3 mL) insulin pen 15 unit SQ TID Qty: 15 10RF Rx Instructions: take half hour before eating isosorbide mononitrate 60 mg tablet extended release 24 hr See Rx Instructions .ROUTE .COMPLEX Qty: 90 1RF Dose Instruction: TAKE ONE TABLET BY MOUTH EVERY DAY FOR CHEST PAIN Rx Instructions: TAKE ONE TABLET BY MOUTH EVERY DAY FOR CHEST PAIN lisinopril 40 mg tablet 40 mg PO DAILY Qty: 90 3RF metformin 1,000 mg tablet See Rx Instructions .ROUTE .COMPLEX Qty: 180 2RF Dose Instruction: TAKE 1 TABLET BY MOUTH TWICE DAILY WITH FOOD FOR DIABETES Rx Instructions: TAKE 1 TABLET BY MOUTH TWICE DAILY WITH FOOD FOR DIABETES metoprolol succinate 50 mg tablet extended release 24 hr See Rx Instructions .ROUTE .COMPLEX Qty: 90 1RF Dose Instruction: TAKE ONE TABLET BY MOUTH EVERY DAY FOR BLOOD PRESSURE Rx Instructions: TAKE ONE TABLET BY MOUTH EVERY DAY FOR BLOOD PRESSURE omeprazole 20 mg capsule,delayed release(DR/EC) 20 mg PO DAILY Qty: 90 0RF Ozempic 1 mg/dose (4 mg/3 mL) pen injector 1 mg SQ WEEKLY Qty: 3 10RF atorvastatin [Lipitor] 20 mg tablet 20 mg PO DAILY Qty: 90 3RF oxycodone-acetaminophen [Percocet] 5-325 mg tablet 1 tab PO TID PRN (Reason: pain) Qty: 90 0RF (DME) Dexcom G6 Foreign Language Teacher Misc See Rx Instructions .Route Qty: 1 3RF Rx Instructions: As directed (DME) Dexcom G6 Transmitter Device See Rx Instructions .Route Qty: 1 3RF Rx Instructions: As directed cetirizine 10 mg tablet See Rx Instructions .ROUTE .COMPLEX Qty: 90 1RF Dose Instruction: TAKE ONE TABLET BY MOUTH EVERY DAY Rx Instructions: TAKE ONE TABLET BY MOUTH EVERY DAY (DME) Dexcom G6 Sensor Device See Rx Instructions .ROUTE .COMPLEX Qty: 3 2RF Dose Instruction: CHANGE EVERY 10 DAYS Rx Instructions: CHANGE EVERY 10 DAYS diclofenac sodium 20 GM gel 2 g TP TID Rx Instructions: apply to knee and back Referrals Follow up/Referrals: Provider,Referral, MD [Primary Care Provider] - See instructions Activity Restrictions/Add. Instructions Additional Instructions/Restrictions: As per your discussions with Dr. Alvarado you are safe to be discharged at this time. If new or worsening symptoms please do not hesitate to return to the emergency department. Please continue to follow-up with cardiology tomorrow as previously discussed. Please call and schedule follow-up with your family doctor in the coming days. Clinical Impressions Clinical Impression: Dizziness Discharge ED Provider: Roberto Williamson
--- NOTE | 2022-09-11 16:06 | ED_ITS ---
Discharge Plan Disposition Patient Disposition: Home, Self-Care Condition: Fair Prescriptions Prescriptions: No Action diflorasone 0.05 % ointment 1 applic topical BID PRN (Reason: skin irritation) Qty: 60 1RF cholecalciferol (vitamin D3) 25 mcg (1,000 unit) capsule See Rx Instructions .ROUTE .COMPLEX Qty: 90 1RF Dose Instruction: TAKE 1 CAPSULE BY MOUTH ONCE DAILY Rx Instructions: TAKE 1 CAPSULE BY MOUTH ONCE DAILY (DME) insulin syringe-needle U-100 [Sure Comfort Ins. Syr. U-100] 0.5 mL 29 gauge x 1/2 syringe See Rx Instructions .ROUTE .COMPLEX Qty: 100 9RF Dose Instruction: USE TWICE DAILY DIRECTED Rx Instructions: USE TWICE DAILY DIRECTED insulin glargine [Lantus U-100 Insulin] 100 unit/mL solution 40 unit SQ HS Qty: 10 10RF albuterol sulfate 90 mcg/actuation HFA aerosol inhaler 2 puff IH Q4HP PRN (Reason: Wheezing) Qty: 1 0RF aspirin [Adult Aspirin Regimen] 81 mg tablet,delayed release (DR/EC) 81 mg PO DAILY Qty: 100 3RF ergocalciferol (vitamin D2) [Vitamin D2] 1,250 mcg (50,000 unit) capsule See Rx Instructions .ROUTE .COMPLEX Qty: 14 0RF Dose Instruction: TAKE 1 CAPSULE BY MOUTH EVERY WEEK Rx Instructions: TAKE 1 CAPSULE BY MOUTH EVERY WEEK insulin aspart U-100 [Novolog FlexPen U-100 Insulin] 100 unit/mL (3 mL) insulin pen 15 unit SQ TID Qty: 15 10RF Rx Instructions: take half hour before eating isosorbide mononitrate 60 mg tablet extended release 24 hr See Rx Instructions .ROUTE .COMPLEX Qty: 90 1RF Dose Instruction: TAKE ONE TABLET BY MOUTH EVERY DAY FOR CHEST PAIN Rx Instructions: TAKE ONE TABLET BY MOUTH EVERY DAY FOR CHEST PAIN lisinopril 40 mg tablet 40 mg PO DAILY Qty: 90 3RF metformin 1,000 mg tablet See Rx Instructions .ROUTE .COMPLEX Qty: 180 2RF Dose Instruction: TAKE 1 TABLET BY MOUTH TWICE DAILY WITH FOOD FOR DIABETES Rx Instructions: TAKE 1 TABLET BY MOUTH TWICE DAILY WITH FOOD FOR DIABETES metoprolol succinate 50 mg tablet extended release 24 hr See Rx Instructions .ROUTE .COMPLEX Qty: 90 1RF Dose Instruction: TAKE ONE TABLET BY MOUTH EVERY DAY FOR BLOOD PRESSURE Rx Instructions: TAKE ONE TABLET BY MOUTH EVERY DAY FOR BLOOD PRESSURE omeprazole 20 mg capsule,delayed release(DR/EC) 20 mg PO DAILY Qty: 90 0RF Ozempic 1 mg/dose (4 mg/3 mL) pen injector 1 mg SQ WEEKLY Qty: 3 10RF atorvastatin [Lipitor] 20 mg tablet 20 mg PO DAILY Qty: 90 3RF oxycodone-acetaminophen [Percocet] 5-325 mg tablet 1 tab PO TID PRN (Reason: pain) Qty: 90 0RF (DME) Dexcom G6 Lyric Writer Misc See Rx Instructions .Route Qty: 1 3RF Rx Instructions: As directed (DME) Dexcom G6 Transmitter Device See Rx Instructions .Route Qty: 1 3RF Rx Instructions: As directed cetirizine 10 mg tablet See Rx Instructions .ROUTE .COMPLEX Qty: 90 1RF Dose Instruction: TAKE ONE TABLET BY MOUTH EVERY DAY Rx Instructions: TAKE ONE TABLET BY MOUTH EVERY DAY (DME) Dexcom G6 Sensor Device See Rx Instructions .ROUTE .COMPLEX Qty: 3 2RF Dose Instruction: CHANGE EVERY 10 DAYS Rx Instructions: CHANGE EVERY 10 DAYS diclofenac sodium 20 GM gel 2 g TP TID Rx Instructions: apply to knee and back Referrals Follow up/Referrals: Provider,Referral, MD [Primary Care Provider] - See instructions Activity Restrictions/Add. Instructions Additional Instructions/Restrictions: As per your discussions with Dr. Alvarado you are safe t
--- NOTE | 2022-09-11 16:15 | PC.NURSE ---
pt ambulated with steady gait down [place]. Dr. Alvarado is aware and also visualized pt walking.
[2022-09-11 16:30] VITALS: BP 168/81; PULSE 81; RESP 16; O2SAT 95
--- NOTE | 2022-09-11 16:44 | PC.NURSE ---
Called daughter and told her, her mom is ready for D/C. Stated she was on her way
[2022-09-11 17:05] VITALS: BP 170/71; PULSE 79; RESP 16; TEMP 36.8; O2SAT 94
== END 2022-09-11 17:08 | disposition home or self-care (01) ==
PROVIDERS: Emergency Medicine; Emergency Provider Emergency Medicine
DX: R53.1 Weakness (principal); R11.2 Nausea with vomiting, unspecified; R42 Dizziness and giddiness; T81.89XA Other complications of procedures, not elsewhere classified, initial encounter; I25.10 Atherosclerotic heart disease of native coronary artery without angina pectoris; J44.9 Chronic obstructive pulmonary disease, unspecified; I11.9 Hypertensive heart disease without heart failure; E78.5 Hyperlipidemia, unspecified; E11.9 Type 2 diabetes mellitus without complications; Z79.82 Long term (current) use of aspirin; Z86.73 Personal history of transient ischemic attack (TIA), and cerebral infarction without residual deficits; Z87.891 Personal history of nicotine dependence
CPT/HCPCS: 70450; 70496; 70498; 80053; 81001; 85025; 87086; 87088; 87186; 93005; 96360; 99285; Q9967

== ENCOUNTER → 2022-09-12 14:19 | Outpatient (CLI) | payer MEDICARE, MEDICAID, SELFPAY | PROVIDERS: PCP Family Medicine; Visit Provider Nurse Practitioner | DX: E11.69 Type 2 diabetes mellitus with other specified complication (principal); E78.5 Hyperlipidemia, unspecified; I11.9 Hypertensive heart disease without heart failure; I25.10 Atherosclerotic heart disease of native coronary artery without angina pectoris; N28.9 Disorder of kidney and ureter, unspecified; R06.02 Shortness of breath; R09.89 Other specified symptoms and signs involving the circulatory and respiratory systems; R42 Dizziness and giddiness; N18.30 Chronic kidney disease, stage 3 unspecified; Z79.4 Long term (current) use of insulin | CPT/HCPCS: 93270 ==

== ENCOUNTER → 2022-10-12 13:39 | Outpatient (CLI) | payer MEDICARE, MEDICAID, SELFPAY ==
--- NOTE | 2022-10-12 13:43 | CA_ITS ---
APPROVED REPORT EXAM: Comprehensive 2D, Doppler, and color-flow Echocardiogram Merchandise Marker: Ellyn Zabala RVT Ht: 5 ft 7 in Wt: 205lbs BSA: 2.04 BP: 116/76 mmHg Indications: SOA,LBBB,CAD,COPD,OBESITY,DM,HTN,HLD TDS-PT BODY HABITUS AND OVERLAYING LUNG 2D Dimensions IVSd 1.10 cm F: 0.6-1.0 LVEF (Visual) 50.30 % PWd 1.24 cm F: 0.6 - 1.0 LVDd 5.60 cm F: 3.9 - 5.3 LVDs 4.15 cm F: 2.2 - 3.5 LVOT 2.13 cm (M/F) 1.5-2.5 M-Mode Dimensions RVDd 2.52 cm (0.9-2.6) LA Diam 4.54 cm (1.9-4.0) LVDd 5.84 cm (3.5-5.7) Ao Diam 2.61 cm (2.0-3.7) LVDs 4.67 cm (3.5-5.7) IVSd 0.84 cm (0.6-1.1) PWd 0.70 cm (0.6-1.1) EF (Teich) 40.40% FS 20.00% EDV (Teich) 169.20 mL TAPSE 1.88 (<1.7) ESV (Teich) 100.80 mL LV Diastology E Decel Time 150.00 (160-240 msec) E/A Ratio 0.9 MED E' 3.70 (< 7 cm/sec) E'/MED E' Ratio 27.41 (>14) LAT E' 4.00 (<10 cm/sec) E/LAT E' Ratio 25.35 (>14) Aortic Valve AO Peak GR. 9.30 mmHg Mitral Valve MV E Max Rene. 101.00 (40-130 cm/s) MV A Velocity 110.00 (40-130 cm/s) E/A Ratio 0.92 MV Decel. Time 150.00 (160-240 ms) MV Mean Gr. 2.60 (<2mmHg) MV PHT 44.00 ms Pulmonary Valve PV Peak Velocity 106.00 (50-150 cm/s) Tricuspid Valve TR P. Velocity 143.00 cm/s RAP Estimate 10.00 mmHg RVSP 18.20 mmHg Left Ventricle The left ventricle is normal size. Left ventricular systolic function is moderately decreased. There is increased LV wall thickness. There is moderate global hypokinesis. The septal, inferoseptal, and anteroseptal LV bowie appear near-akinetic. Diastolic function is indeterminate. LVEF is 35-40%. Right Ventricle The right ventricle is normal size. The right ventricular systolic function is normal. There is increased RV wall thickness. Atria Left atrium is mildly dilated. The right atrium size is normal. There is no Doppler evidence of interatrial shunt. Aortic Valve The aortic valve is mildly thickened. The aortic valve opens well. There is no aortic valvular stenosis. Trace aortic regurgitation. Mitral Valve The mitral valve is mildly thickened. No evidence of mitral valve stenosis. Trace mitral regurgitation. Tricuspid Valve The tricuspid valve leaflets are thin and pliable. Trace tricuspid regurgitation. There is insufficient TR jet to estimate RVSP. Pulmonic Valve The pulmonary valve is grossly normal in structure. Trace pulmonic regurgitation. Great Vessels The aortic root is normal in size. The ascending aorta is not well visualized. IVC is normal in size and collapses >50% with inspiration. Pericardium A small circumferential pericardial effusion is also present with possible pericardial thickening. The largest pocket in the distal anterior space measuring approximately 0.5 cm in diastole. There are no echo indications of cardiac tamponade. Other Information Study Quality: Fair Conclusion Moderate reduction in LV systolic function. Increased LV wall thickness. Near-akinesis of the septal, anteroseptal, and inferoseptal bowie No significant valvular stenosis or regurgitation A small circumferential pericardial effusion is also present with possible pericardial thickening. The largest pocket in the distal anterior space measuring approximately 0.5 cm in diastole. There are no echo indications of cardiac tamponade. Electronically signed by : Estefanía Beasley, 10/14/2022 17:14:35
== END ==
PROVIDERS: PCP Family Medicine; Visit Provider Nurse Practitioner Family
DX: E11.69 Type 2 diabetes mellitus with other specified complication (principal); E78.5 Hyperlipidemia, unspecified; I11.9 Hypertensive heart disease without heart failure; I25.10 Atherosclerotic heart disease of native coronary artery without angina pectoris; N28.9 Disorder of kidney and ureter, unspecified; R06.02 Shortness of breath; R09.89 Other specified symptoms and signs involving the circulatory and respiratory systems; R42 Dizziness and giddiness; Z79.4 Long term (current) use of insulin; N18.30 Chronic kidney disease, stage 3 unspecified
CPT/HCPCS: 93306

== ENCOUNTER 2022-10-30 15:16 | Emergency (ER) | payer MEDICARE, MEDICAID, SELFPAY ==
[2022-10-30] VITALS (8 sets, daily range): BP systolic 111–159; BP diastolic 52–91; PULSE 68–88; RESP 16–18; TEMP 36.4; O2SAT 93–99; BMI 34.4
--- NOTE | 2022-10-30 15:23 | ECG_ITS ---
APPROVED REPORT Exam: Resting ECG HR:83 bpm ECG Measurements Heart Rate [address] 183 P 94 QRSd 153 QRS 9 QT 403 T 154 QTc 442 Conclusion SINUS RHYTHM WITH SINUS ARRHYTHMIA LEFT BUNDLE BRANCH BLOCK [120+ ms QRS DURATION, 80+ ms Q/S IN V1/V2, 85+ ms R IN I/aVL/V5/V6] ABNORMAL ECG UNCONFIRMED REPORT Electronically signed by : Richi Palomino MD 10/30/2022 19:52:09
--- NOTE | 2022-10-30 15:55 | HMH.EDGENADL ---
Discharge Plan Disposition Patient Disposition: Home, Self-Care Condition: Good Chief Complaint: Recheck/Abnormal Lab/Rx Prescriptions Prescriptions: No Action atorvastatin 40 mg tablet 40 mg PO DAILY Qty: 90 3RF diflorasone 0.05 % ointment 1 applic topical BID PRN (Reason: skin irritation) Qty: 60 1RF cholecalciferol (vitamin D3) 25 mcg (1,000 unit) capsule See Rx Instructions .ROUTE .COMPLEX Qty: 90 1RF Dose Instruction: TAKE 1 CAPSULE BY MOUTH ONCE DAILY Rx Instructions: TAKE 1 CAPSULE BY MOUTH ONCE DAILY (DME) insulin syringe-needle U-100 [Sure Comfort Ins. Syr. U-100] 0.5 mL 29 gauge x 1/2 syringe See Rx Instructions .ROUTE .COMPLEX Qty: 100 9RF Dose Instruction: USE TWICE DAILY DIRECTED Rx Instructions: USE TWICE DAILY DIRECTED insulin glargine [Lantus U-100 Insulin] 100 unit/mL solution 40 unit SQ HS Qty: 10 10RF aspirin [Adult Aspirin Regimen] 81 mg tablet,delayed release (DR/EC) 81 mg PO DAILY Qty: 100 3RF ergocalciferol (vitamin D2) [Vitamin D2] 1,250 mcg (50,000 unit) capsule See Rx Instructions .ROUTE .COMPLEX Qty: 14 0RF Dose Instruction: TAKE 1 CAPSULE BY MOUTH EVERY WEEK Rx Instructions: TAKE 1 CAPSULE BY MOUTH EVERY WEEK insulin aspart U-100 [Novolog FlexPen U-100 Insulin] 100 unit/mL (3 mL) insulin pen 15 unit SQ TID Qty: 15 10RF Rx Instructions: take half hour before eating isosorbide mononitrate 60 mg tablet extended release 24 hr See Rx Instructions .ROUTE .COMPLEX Qty: 90 1RF Dose Instruction: TAKE ONE TABLET BY MOUTH EVERY DAY FOR CHEST PAIN Rx Instructions: TAKE ONE TABLET BY MOUTH EVERY DAY FOR CHEST PAIN lisinopril 40 mg tablet 40 mg PO DAILY Qty: 90 3RF metformin 1,000 mg tablet See Rx Instructions .ROUTE .COMPLEX Qty: 180 2RF Dose Instruction: TAKE 1 TABLET BY MOUTH TWICE DAILY WITH FOOD FOR DIABETES Rx Instructions: TAKE 1 TABLET BY MOUTH TWICE DAILY WITH FOOD FOR DIABETES metoprolol succinate 50 mg tablet extended release 24 hr See Rx Instructions .ROUTE .COMPLEX Qty: 90 1RF Dose Instruction: TAKE ONE TABLET BY MOUTH EVERY DAY FOR BLOOD PRESSURE Rx Instructions: TAKE ONE TABLET BY MOUTH EVERY DAY FOR BLOOD PRESSURE omeprazole 20 mg capsule,delayed release(DR/EC) 20 mg PO DAILY Qty: 90 0RF (DME) Dexcom G6 [employer] Instructor Misc See Rx Instructions .Route Qty: 1 3RF Rx Instructions: As directed (DME) Dexcom G6 Transmitter Device See Rx Instructions .Route Qty: 1 3RF Rx Instructions: As directed cetirizine 10 mg tablet See Rx Instructions .ROUTE .COMPLEX Qty: 90 1RF Dose Instruction: TAKE ONE TABLET BY MOUTH EVERY DAY Rx Instructions: TAKE ONE TABLET BY MOUTH EVERY DAY (DME) Dexcom G6 Sensor Device See Rx Instructions .ROUTE .COMPLEX Qty: 3 2RF Dose Instruction: CHANGE EVERY 10 DAYS Rx Instructions: CHANGE EVERY 10 DAYS Mounjaro 5 mg/0.5 mL pen injector 5 mg SQ WEEKLY Qty: 2 5RF Mounjaro 2.5 mg/0.5 mL pen injector 2.5 mg SQ WEEKLY 28 Days Qty: 2 0RF albuterol sulfate [Ventolin HFA] 90 mcg/actuation HFA aerosol inhaler See Rx Instructions .ROUTE .COMPLEX Qty: 18 0RF Dose Instruction: INHALE 2 PUFFS BY MOUTH EVERY 4 HOURS NEEDED FOR WHEEZING Rx Instructions: INHALE 2 PUFFS BY MOUTH EVERY 4 HOURS NEEDED FOR WHEEZING oxycodone-acetaminophen [Percocet] 5-325 mg tablet 1 tab PO TID PRN (Reason: pain) Qty: 90 0RF diclofenac sodium 20 GM gel 2 g TP TID Rx Instructions: apply to knee and back Referrals Follow up/Referrals: Jose Olea MD [Primary Care Provider] - See instructions Clinical Impressions Clinical Impression: Gastroenteritis Instructions Patient Instructions: DI for Viral Gastroenteritis -- Adult Discharge ED Provider: Kori Coleman General Adult HPI General Chief complaint: Recheck/Abno
--- NOTE | 2022-10-30 15:58 | PC.NURSE ---
FSBS: 93
[2022-10-30 16:05] LABS: POC Glucose,Bedside 93 (70-110)
--- NOTE | 2022-10-30 16:45 | PC.NURSE ---
Warm blanket provided to patient. Patient reporting a headache. MD notified; V/O for 1g Tylenol PO. Call light within reach
[2022-10-30 16:55] LABS: Basophils # 0.1 K/mm3 (0-0.2); Basophils % 0.6 % (0.1-2.0); Eosinophils # 0.3 K/mm3 (0.0-0.4); Eosinophils % 3.4 % (0.1-12.0); Hematocrit 41.6 % (37.0-47.0); Hemoglobin 13.4 g/dL (12.2-16.2); Lymphocytes # 1.7 K/mm3 (0.7-4.5); Lymphocytes % 20.3 % (10-50); Mean Corpuscular HGB Conc 32.2 g/dL (31.8-35.4); Mean Corpuscular Hemoglobin 26.8 pg (27.0-31.2); Mean Corpuscular Volume 83.2 fl (81-99); Mean Platelet Volume 9.8 fl (7.4-10.4); Monocytes # 0.5 K/mm3 (0.1-1.0); Monocytes % 5.4 % (1.7-9.3); Neutrophils # 5.9 K/mm3 (1.8-7.8); Neutrophils % 70.3 % (37.0-80.0); Platelet Count 177 K/mm3 (142-424); White Blood Count 8.4 K/mm3 (4.8-10.8)
[2022-10-30 16:56] LABS: Chloride 104 mmol/L (98-107); Potassium 4.3 mmoL/L (3.5-5.1); Sodium 144 mmol/L (136-145)
[2022-10-30 16:59] LABS: Alanine Aminotransferase 23 U/L (12-78); Albumin Level 4.2 g/dl (3.5-5.0); Albumin/Globulin Ratio 1.2 (1.1-1.8); Alkaline Phosphatase 85 U/L (38-126); Anion Gap 14.3 mEq/L (5-15); Aspartate Amino Transferase 33 U/L (14-36); Bilirubin,Total 0.4 mg/dl (0.2-1.3); Blood Urea Nitrogen 24 mg/dl (7-17); Calcium 9.8 mg/dl (8.4-10.2); Carbon Dioxide 30 mmol/L (22.0-30.0); Creatinine Clearance Estimated 59 mL/min (50-200); Estimated Glomerular Filt Rate 44 ml/min (>60); GFR (African American) 53 ML/MIN (>60); Globulin 3.6 g/dL (1.3-3.2); Glucose 106 mg/dl (74-100); Lipase 75 U/L (23-300); Total Protein,Serum 7.8 g/dl (6.3-8.2)
[2022-10-30 17:23] LABS: Troponin I < 0.01 ng/ml (0.00-0.034)
--- NOTE | 2022-10-30 18:02 | PC.NURSE ---
Rounded on pt. Warm blanket provided. No other needs voiced.
--- NOTE | 2022-10-30 18:20 | PC.NURSE ---
Rounded on patient; call light within reach. warm blankets provided to patient
--- NOTE | 2022-10-30 18:30 | PC.NURSE ---
PT AND DAUGHTER IS AWARE THAT THEY NEED TO CALL AND SCHEDULE AN APPT WITH DR SOTO FOR FURTHER TESTING
--- NOTE | 2022-10-30 18:34 | PC.NURSE ---
PT AMBULATED OUT WITH DAUGHTER
== END 2022-10-30 18:39 | disposition home or self-care (01) ==
PROVIDERS: Emergency Provider Emergency Medicine; PCP Family Medicine
DX: I95.9 Hypotension, unspecified (principal); K52.9 Noninfective gastroenteritis and colitis, unspecified; I25.10 Atherosclerotic heart disease of native coronary artery without angina pectoris; E11.9 Type 2 diabetes mellitus without complications; J44.9 Chronic obstructive pulmonary disease, unspecified; I11.9 Hypertensive heart disease without heart failure; E78.5 Hyperlipidemia, unspecified; N28.9 Disorder of kidney and ureter, unspecified; Z86.73 Personal history of transient ischemic attack (TIA), and cerebral infarction without residual deficits
CPT/HCPCS: 80053; 82962; 83690; 84484; 85025; 93005; 96361; 96374; 99285; J2405

== ENCOUNTER 2022-11-22 08:56 | Day surgery (SDC) | payer MEDICARE, MEDICAID, SELFPAY ==
[2022-11-22] VITALS (12 sets, daily range): BP systolic 133–216; BP diastolic 64–111; PULSE 79–90; RESP 16–18; TEMP 36.9; O2SAT 91–97; BMI 34.7
--- NOTE | 2022-11-22 07:06 | IR_ITS ---
APPROVED REPORT Patient Location: Outpatient PROCEDURES Selective coronary angiogram Drug-eluting stent deployment to the proximal LAD Drug-eluting stent deployment to the proximal codominant right coronary INDICATION Ventricular tachycardia, Coronary artery disease, Angina pectoris Informed consent was obtained prior to the procedure. COMPLICATIONS None Estimated Blood Loss: Less than10 mls TECHNIQUE One percent lidocaine used to anesthetize the right anterior aspect of the wrist. The right radial artery was accessed via the Seldinger technique. A 6 Arabic sheath was placed in the right radial artery. 2.5 mg of Verapamil, 800 mcg of nitroglycerin, 1mg Lidocaine and 5000 U Heparin were given through the arterial sheath. The papa catheter was also used to perform selective coronary angiogram. At the end the diagnostic angiogram therapeutic heparin was administered giving a therapeutic ACT and the guide catheter was placed in left main artery followed by Choice PT extra-support wire being placed on the LAD. A 3 mm x 30 mm [place] frontier stent was deployed at 20 ac reducing the stenosis. A 3.5 x 8 mm noncompliant balloon was deployed at 20 and 22 ac in the proximal portion of the stent further post dilate. SAL-3 flow was present before and after the procedure. Excellent angiographic results were obtained with SAL-3 flow down the side branches as well as the LAD proper. Following this the guide catheter was pulled out of the left main artery and placed in the right coronary artery with the same wire was placed distally. A 3 mm x 38 mm [place] frontier stent was deployed at 20 ac reducing the stenosis. A 3.5 x 20 mm noncompliant balloon was then placed in the proximal segment and deployed at 22 ac to further post dilate. SAL-3 flow was present before and after the procedure. After achieving excellent angiograph results the apparatus was removed the sheath was removed and hemostasis was achieved using TR banding patient was transferred to the postop holding in stable condition ANGIOGRAPHIC RESULTS The left main artery Normal The left anterior descending artery Has a proximal 40% and concentric 80% stenosis with the mid and distal vessel with 20% stenoses, a large second diagonal artery has an ostial 30 to 40% stenosis The circumflex artery Is a large codominant and has a proximal 30% stenosis. The right coronary artery Is codominant and has a proximal concentric 70 to 80% stenosis with mid vessel 30% stenoses The RIZO ventriculogram reveals Not performed The left ventricular end-diastolic pressure Not measured IMPRESSION Severe two-vessel coronary artery disease Successful stenting of the proximal LAD severe disease reduced to 0% with 1 drug-eluting stent Successful stenting of the proximal codominant right coronary artery severe disease reduced to 0% with 1 drug-eluting stent PLAN 1. Plavix 75 mg daily plus aspirin 81 mg daily 2. LDL less than 55 to be achieved with high intensity statin 3. Risk factor modification 4. Avoidance of tobacco products 5. Risk factor modification Electronically signed by : Dayo Jewell MD 11/22/2022 13:10:38
[2022-11-22 09:38] LABS: Basophils # 0.1 K/mm3 (0-0.2); Basophils % 0.7 % (0.1-2.0); Eosinophils # 0.3 K/mm3 (0.0-0.4); Eosinophils % 4.6 % (0.1-12.0); Hematocrit 44.8 % (37.0-47.0); Lymphocytes # 1.7 K/mm3 (0.7-4.5); Mean Corpuscular HGB Conc 31.3 g/dL (31.8-35.4); Mean Corpuscular Hemoglobin 26.6 pg (27.0-31.2); Mean Corpuscular Volume 85.1 fl (81-99); Mean Platelet Volume 9.4 fl (7.4-10.4); Monocytes # 0.4 K/mm3 (0.1-1.0); Monocytes % 6.2 % (1.7-9.3); Neutrophils # 4.1 K/mm3 (1.8-7.8); Neutrophils % 62.3 % (37.0-80.0); Platelet Count 165 K/mm3 (142-424); Red Blood Count 5.26 M/mm3 (4.20-5.40); Red Cell Distribution Width 15.7 % (11.5-17.5); White Blood Count 6.6 K/mm3 (4.8-10.8)
[2022-11-22 09:52] LABS: Anion Gap 15.5 mEq/L (5-15); Blood Urea Nitrogen 24 mg/dl (7-17); Calcium 9.8 mg/dl (8.4-10.2); Carbon Dioxide 29 mmol/L (22.0-30.0); Chloride 102 mmol/L (98-107); Creatinine Clearance Estimated 54 mL/min (50-200); Estimated Glomerular Filt Rate 40 ml/min (>60); GFR (African American) 48 ML/MIN (>60); Glucose 138 mg/dl (74-100); Potassium 4.5 mmoL/L (3.5-5.1); Sodium 142 mmol/L (136-145)
[2022-11-22 13:21] LABS: CATHL Activated Clotting Time > 400 SEC (74-125)
--- NOTE | 2022-11-22 15:48 | HMH.PHACL ---
[facility] [employer] Super[employer] Discharge Med Atmospheric Drier Tender: Adriana Ray has received discharge medication counseling on the following medications: MD STARTING PLAVIX 75 MG DAILY. PATIENT IS ALREADY TAKING ASPIRIN 81 MG DAILY, ATORVASTATIN 40 MG DAILY, LISINOPRIL 40 MG DAILY AND METOPROLOL SUCCINATE 50 MG DAILY.
--- NOTE | 2022-11-22 16:04 | SUR.PHASEII ---
Patient requested to leave by 4pm due to transportation, okay with this. Patient escorted to front lobby at 4pm to await bus transportation.
== END 2022-11-22 16:00 | disposition home or self-care (01) ==
PROVIDERS: PCP Family Medicine; Visit Provider Internal Medicine
DX: R07.9 Chest pain, unspecified (principal); Z79.4 Long term (current) use of insulin; Z79.899 Other long term (current) drug therapy; I25.118 Atherosclerotic heart disease of native coronary artery with other forms of angina pectoris; I12.9 Hypertensive chronic kidney disease with stage 1 through stage 4 chronic kidney disease, or unspecified chronic kidney disease; N18.31 Chronic kidney disease, stage 3a; E11.22 Type 2 diabetes mellitus with diabetic chronic kidney disease; J44.9 Chronic obstructive pulmonary disease, unspecified; E78.5 Hyperlipidemia, unspecified
CPT/HCPCS: 80048; 85025; 85347; 92928; 93454; 99152; 99153; C1725; C1769; C1874; C9600; J1644; Q9967

== ENCOUNTER → 2022-11-29 11:16 | Outpatient (CLI) | payer MEDICARE, MEDICAID, SELFPAY ==
--- NOTE | 2022-11-29 11:20 | CA_ITS ---
FINAL REPORT CLINICAL HISTORY: Hematoma, bruising, S/P HEART CATH WITH RT WRIST ACCESS ON 11/22 FINDINGS: DUPLEX DOPPLER RIGHT UPPER EXTREMITY TECHNIQUE: Axial and color Doppler waveform evaluation of the right radial artery was performed. FINDINGS: There is no evidence of right radial artery thrombosis or pseudoaneurysm. There is no hematoma. IMPRESSION: No evidence of right radial artery thrombosis or pseudoaneurysm. Reviewed, Interpreted and Dictated by Spencer Joshi III, MD Transcribed by Ana Allen Authenticated and [facility]
== END ==
PROVIDERS: PCP Family Medicine; Visit Provider Nurse Practitioner Family
DX: M25.531 Pain in right wrist; S60.211A Contusion of right wrist, initial encounter; R09.89 Other specified symptoms and signs involving the circulatory and respiratory systems
CPT/HCPCS: 93931

== ENCOUNTER → 2023-02-13 09:44 | Outpatient (CLI) | payer MEDICARE, MEDICAID, SELFPAY ==
[2023-02-13 10:10] LABS: Basophils % 0.7 % (0.1-2.0); Eosinophils # 0.3 K/mm3 (0.0-0.4); Eosinophils % 4.2 % (0.1-12.0); Hematocrit 36.7 % (37.0-47.0); Hemoglobin 11.9 g/dL (12.2-16.2); Lymphocytes # 1.4 K/mm3 (0.7-4.5); Lymphocytes % 23.8 % (10-50); Mean Corpuscular HGB Conc 32.5 g/dL (31.8-35.4); Mean Corpuscular Volume 83.2 fl (81-99); Monocytes # 0.3 K/mm3 (0.1-1.0); Monocytes % 5.2 % (1.7-9.3); Neutrophils % 66.2 % (37.0-80.0); Platelet Count 172 K/mm3 (142-424); Red Blood Count 4.42 M/mm3 (4.20-5.40); Red Cell Distribution Width 14.1 % (11.5-17.5)
[2023-02-13 10:49] LABS: Chloride 107 mmol/L (98-107); Potassium 4.6 mmoL/L (3.5-5.1); Sodium 142 mmol/L (136-145)
[2023-02-13 10:52] LABS: Anion Gap 13.6 mEq/L (5-15); Blood Urea Nitrogen 24 mg/dl (7-17); Carbon Dioxide 26 mmol/L (22.0-30.0); Estimated Glomerular Filt Rate 40 ml/min (>60); GFR (African American) 48 ML/MIN (>60)
[2023-02-13 10:53] LABS: Glucose 195 mg/dl (74-100)
== END ==
PROVIDERS: PCP Family Medicine; Visit Provider Physician Assistant
DX: I25.10 Atherosclerotic heart disease of native coronary artery without angina pectoris; I50.20 Unspecified systolic (congestive) heart failure; I11.0 Hypertensive heart disease with heart failure
CPT/HCPCS: 36415; 80048; 85025

== ENCOUNTER 2023-03-04 09:58 | Outpatient (CLI) | payer MEDICARE, MEDICAID, SELFPAY ==
--- NOTE | 2023-03-04 09:59 | CA_ITS ---
APPROVED REPORT EXAM: Limited 2D Echocardiogram [employer]: Bing Naik CRT Ht: 5 ft 8 in Wt: 203lbs BSA: 2.06 BP: 100/53 mmHg Indications: EF CHECK EF 35-40% ECHO 10/12/22 2D Dimensions Left Atrium 4.33 cm F: 2.7 - 3.8 LVEF (Blanco's) 44.00 % F: 54 - 74 LVOT 1.88 cm (M/F) 1.5-2.5 LV Volume 84.50 mL F: 46 - 106 LV Volume Index 41.0 mL/m2 F: 29 - 61 EF AP4 52.50 % EF AP2 38.9 % EF BP 44.0 % GL Strain -12.0 % M-Mode Dimensions RVDd 2.75 cm (0.9-2.6) LVDd 5.52 cm (3.5-5.7) Ao Diam 2.92 cm (2.0-3.7) LVDs 4.84 cm (3.5-5.7) IVSd 1.80 cm (0.6-1.1) PWd 0.77 cm (0.6-1.1) EF (Teich) 26.30% FS 12.30% EDV (Teich) 148.70 mL ESV (Teich) 109.60 mL Other Information Study Quality: Fair Conclusion This is a limited TTE to evaluate for LVEF. Limited windows were obtained. The left ventricle is normal in size. There is increased LV wall thickness. There is mild global hypokinesis present. There is severe hypokinesis of the septal, inferoseptal, and anteroseptal LV bowie. LVEF is 45%. Compared to prior study from 2022, the LVEF is now slightly improved. Electronically signed by : Estefanía Beasley MD 03/04/2023 15:46:36
== END 2023-03-04 23:59 ==
LOC: RT 09:59
PROVIDERS: PCP Family Medicine; Visit Provider Physician Assistant
DX: E78.5 Hyperlipidemia, unspecified (principal); I25.10 Atherosclerotic heart disease of native coronary artery without angina pectoris; I50.20 Unspecified systolic (congestive) heart failure; I11.0 Hypertensive heart disease with heart failure
CPT/HCPCS: 93308